=== PATIENT | male | born 1940 | race Caucasian/White ===

== ENCOUNTER 2016-09-03 08:52 | Inpatient (IN) | payer OTHER ==
[2016-08-13 10:00] VITALS: BMI 29.0
--- NOTE | 2016-08-13 10:51 | PAT Medication Instructions ---
Service Date August 13, 2016. Current Home Medication List Acetaminophen Tab (Tylenol), 650 MG PO Q4H PRN for Pain Carvedilol (Coreg), 12.5 MG PO BID Digoxin (Lanoxin), 0.125 MG PO 1800 Glipizide (Glipizide), 5 MG PO BIDM Lactulose (Chronulac), 10 ML PO BID Levothyroxine Sodium (Levothyroxine Sodium), 175 MCG PO QAM Magnesium Oxide (Mag-Ox), 400 MG PO BID Omeprazole (Prilosec), 40 MG PO BID Ondansetron Hcl (Zofran), 4 MG PO BID Ranitidine (Zantac), 150 MG PO HS Rifaximin (Xifaxan), 550 MG PO BID Ropinirole Hydrochloride (Requip), 0.25 MG PO HS PRN for RLS Zolpidem Tartrate (Zolpidem Tartrate), 1 TAB PO HS Medication Instructions For Your Scheduled Surgery - Hold the following medications the morning of surgery: Magnesium Oxide (Mag-Ox), 400 MG PO BID Glipizide (Glipizide), 5 MG PO BIDM - Take the following medications the morning of surgery with a sip of water: Omeprazole (Prilosec), 40 MG PO BID Ondansetron Hcl (Zofran), 4 MG PO BID Levothyroxine Sodium (Levothyroxine Sodium), 175 MCG PO QAM Lactulose (Chronulac), 10 ML PO BID Rifaximin (Xifaxan), 550 MG PO BID Acetaminophen Tab (Tylenol), 650 MG PO Q4H PRN for Pain (if needed) Carvedilol (Coreg), 12.5 MG PO BID - Hold the following medications as scheduled the night before surgery: Ropinirole Hydrochloride (Requip), 0.25 MG PO HS PRN for RLS Zolpidem Tartrate (Zolpidem Tartrate), 1 TAB PO HS Rifaximin (Xifaxan), 550 MG PO BID Ranitidine (Zantac), 150 MG PO HS Omeprazole (Prilosec), 40 MG PO BID Ondansetron Hcl (Zofran), 4 MG PO BID Lactulose (Chronulac), 10 ML PO BID Digoxin (Lanoxin), 0.125 MG PO 1800 Acetaminophen Tab (Tylenol), 650 MG PO Q4H PRN for Pain Carvedilol (Coreg), 12.5 MG PO BID If you have any questions please call us at [phone] (Kasia Ni PA-C) or [phone] or [phone]
[2016-08-13 11:24] LABS: INR 1.2 (0.9-1.1); PARTIAL THROMBOPLASTIN RATIO 1.1; PROTHROMBIN TIME (PATIENT) 12.9 SECONDS (9.0-12.0)
[2016-08-13 11:58] LABS: BASO % 1.4 %; BASO ABS # 0.07 K/uL (0-0.2); COMPLETE YES; EOS % 9.3 %; HEMATOCRIT 40.6 % (42-52); IG% 0.6 %; LYMPH ABS # 0.94 K/uL (1.2-3.4); MEAN CELL VOLUME 89.4 fL (80-100); MEAN CORPUSCULAR HEMOGLOBIN 31.3 pg (25-34); MEAN PLATELET VOLUME 12.2 fL (7.4-10.4); MONO % 6.5 %; NEUT % 63.2 %; PLATELET COUNT 33 K/uL (130-400); PLT ESTIMATE DECREASED; RED BLOOD COUNT 4.54 M/uL (4.7-6.1); WHITE BLOOD COUNT 4.96 K/uL (4.8-10.8)
[2016-08-13 13:23] LABS: BUN/CREATININE RATIO 14.1 (10-20); CALCIUM 8.5 mg/dl (8.5-10.1); CREATININE 0.96 mg/dl (0.60-1.40)
[2016-08-13 13:32] LABS: BETA-HYDROXYBUTYRATE 0.86 mg/dL (0.2-2.81)
[~2016-09-03] VITALS: Ht 165.1 cm; Wt 88.1 kg
[2016-09-03] VITALS (28 sets, daily range): BP systolic 91–141; BP diastolic 52–86; PULSE 59–96; TEMP 36.4–36.5; O2SAT 90–100; BMI 29.0; BMI 31.6
[~2016-09-03 08:52] MED LIST: ACET325T96 PO; CARV12.52 PO; CEFAZOLIN 2000 MG/60 ML D5W IV SCH; DIGO0.122 PO; GLC5 PO; LACT10SO17 PO; LACTATED RINGER'S 1000ML 1,000 ML IV SCH; LEVO175T3 PO; MAGN400T6 PO; ONDA4TAB46 PO; PRLSR20 PO; RIFA550T2 PO; ZNTT/150 PO; ZOLP5TAB6 PO; [UNRECOGNIZED DRUG - CODE] PO
[2016-09-03 09:42] LABS: HEMATOCRIT 42.9 % (42-52); MEAN CELL VOLUME 89.7 fL (80-100); MEAN CORPUSCULAR HEMOGLOBIN 30.3 pg (25-34); RED BLOOD COUNT 4.78 M/uL (4.7-6.1); WHITE BLOOD COUNT 5.17 K/uL (4.8-10.8)
[2016-09-03 09:46] LABS: MEAN CORPUSCULAR HGB CONC 33.8 g/dl (32-36); MEAN PLATELET VOLUME 11.9 fL (7.4-10.4); PLATELET COUNT 62 K/uL (130-400)
[2016-09-03] MEDS ORDERED: PROPOFOL IV EMULSION 10 MG/ML 20 ML VIAL IV ONE (09:55)
[2016-09-03] MEDS ORDERED: NEOSTIGMINE METHYLSULFATE 5 MG/5 ML SYR ONE (09:55)
[2016-09-03] MEDS ORDERED: MIDAZOLAM HCL 1 MG/ML 2ML VIAL ONE (09:55)
[2016-09-03] MEDS ORDERED: ONDANSETRON INJ 2 MG/ML 2 ML VIAL ONE (09:55)
[2016-09-03] MEDS ORDERED: LIDOCAINE HCL 2% 2 ML VIAL (20MG/ML) ONE (09:55)
[2016-09-03] MEDS ORDERED: FENTANYL CITRATE INJ 50 MCG/1 ML 2 ML VIAL ONE ×3 (09:55→13:02)
[2016-09-03] MEDS ORDERED: GLYCOPYRROLATE INJ 0.2 MG/ML VIAL ONE (09:55)
[2016-09-03] MEDS ORDERED: ROCURONIUM BROMIDE 10 MG/ML 5 ML VIAL ONE ×2 (09:55→11:22)
[2016-09-03] MEDS ORDERED: DEXAMETHASONE SOD INJ 4 MG/ML VIAL ONE (09:55)
--- NOTE | 2016-09-03 09:59 | History and Physical ---
History & Physical Date September 03, 2016. 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 requested by oncology for splenectomy. Past Medical/Surgical History Medical Problems: (1) A-fib (2) Anemia (3) Anemia (4) Atrial Fibrillation (5) Bleeding (6) Bleeding from colostomy (7) Bleeding from colostomy (8) Bleeding from colostomy (9) Bleeding ulcer (10) Chest pain (11) Chronic anticoagulation (12) Chronic Liver Dis Nec (13) Congestive Heart Failure Nos (14) Diab Caren Wo Compl, Type Ii Or Unspec Type, Not Uncntrld (15) Diverticulitis (16) GI (gastrointestinal bleed) (17) GI (gastrointestinal bleed) (18) GI bleed (19) Hypertension Nos (20) s/p ligation ileostomy bleed (21) Warfarin-induced coagulopathy Surgical Problems: (1) Auto Implantable Cardiac Defibrillator In Situ (2) Colostomy in place Additional History Hepatic Disease: Yes (cirrhosis. unknown etiology) Endocrine Disorder: Yes (DM) Hypertension: Yes Heart Disease: Yes (Afib;CHF; CAD) Bleeding Tendencies: Yes Allergies Coded Allergies: No Known Allergies (Unverified , 09/03/16) Home Medications Scheduled Carvedilol (Coreg), 12.5 MG PO BID Digoxin (Lanoxin), 0.125 MG PO 1800 Glipizide (Glipizide), 5 MG PO BIDM Lactulose (Chronulac), 10 ML PO BID Levothyroxine Sodium (Levothyroxine Sodium), 175 MCG PO QAM Magnesium Oxide (Mag-Ox), 400 MG PO BID Omeprazole (Prilosec), 40 MG PO BID Ondansetron Hcl (Zofran), 4 MG PO BID Ranitidine (Zantac), 150 MG PO HS Rifaximin (Xifaxan), 550 MG PO BID Zolpidem Tartrate (Zolpidem Tartrate), 1 TAB PO HS Scheduled PRN Acetaminophen Tab (Tylenol), 650 MG PO Q4H PRN for Pain Ropinirole Hydrochloride (Requip), 0.25 MG PO HS PRN for RLS Physical Examination Skin: warm/dry Eyes: normal inspection, EOMI ENT: normal ENT inspection Head: normocephalic, atraumatic Neck: supple, trachea midline Respiratory/Chest: normal breath sounds, no respiratory distress Cardiovascular: no edema, + irregularly irregular Abdomen / GI: non tender, + pertinent finding (+stoma in place. no fluid wave) Extremities: normal inspection Neurologic/Psych: alert, oriented x 3 Diagnosis thrombocytopenia secondary to ITP unresponsive to med tx very difficult scenario. please see office H & P for more detailed hx/exam very high risk candidate but not many options. high risk for bleeding/infection/ dvt/pe/mi/injury to an organ; high probability of needing to convert to open procedure. discussed all these risks again/pt aware/questions answered. will proceed with lap /poss open splenectomy
[2016-09-03] MEDS ORDERED: BUPIVACAINE/EPINEPHRINE 0.5% MPF 1:200,000 30 ML VIAL ONE (10:04)
[2016-09-03] MEDS ORDERED: PHENYLEPHRINE HCL INJ 10 MG/ML VIAL ONE (10:05)
[2016-09-03 12:47] LABS: ISTAT CREATININE 0.6 mg/dl (0.6-1.3); ISTAT HEMOGLOBIN 10.2 g/dl (14.0-18.0); ISTAT IONIZED CALCIUM 1.08 mmol/l (1.12-1.32)
[2016-09-03] MEDS ORDERED: TISSEEL FIBRIN SEALANT 10ML TOP ONE (12:53)
[2016-09-03] MEDS ORDERED: GLUCOSE 10 TABS/TUBE PO PRN (13:30)
[2016-09-03] MEDS ORDERED: ROPINIROLE HCL 0.25 MG TAB PO PRN (13:30)
[2016-09-03] MEDS ORDERED: ONDANSETRON INJ 2 MG/ML 2 ML VIAL IV PRN ×2 (13:30→14:00)
[2016-09-03] MEDS ORDERED: GLUCOSE 40% GEL 15 GM TUBE PO PRN (13:30)
[2016-09-03] MEDS ORDERED: GLUCAGON FOR INJ 1 MG VIAL SQ PRN (13:30)
[2016-09-03] MEDS ORDERED: DEXTROSE 50% 50 ML SYR IV PRN (13:30)
--- NOTE | 2016-09-03 13:31 | [facility] Operative Report ---
Operative Report Operative Date September 03, 2016. 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 Ma Belt Picker Surgeon(s) Alfonso Quintana Estimated Blood Loss 700 ML Findings 1. enlarged spleen 2. cirrhotic liver 3. adhesions. 4. small hiatal hernia Specimens spleen Drains ROMEO into LUQ Anesthesia get Complication(s) None Disposition Surgical ICU I attest to the content of the Intraoperative Record and any orders documented therein. Any exceptions are noted below.
[2016-09-03] MEDS ORDERED: HYDROmorphone INJ 1 MG/ML SYR ONE ×2 (13:59→14:08)
[2016-09-03] MEDS ORDERED: HYDROmorphone INJ 2 MG/ML SYR/VIAL IV PRN (14:00)
[2016-09-03] MEDS ORDERED: EpHEDrine SULFATE INJ 50 MG/ML AMP IV PRN (14:00)
[2016-09-03] MEDS ORDERED: ATROPINE SULFATE 0.1 MG/ML 5ML SYR IV PRN (14:00)
[2016-09-03] MEDS ORDERED: PHENYLEPHRINE 100MCG/ML 5ML SYR IV PRN (14:00)
--- NOTE | 2016-09-03 14:55 | Anesthesiology Progress Note ---
Anesthesia Post Op Note Date & Time September 03, 2016 at 14:55 Vital Signs Pain Intensity: 4 Vital Signs Past 12 Hours Date Time Temp Pulse Resp B/P Pulse Ox O2 Delivery O2 Flow Rate FiO2 09/03/16 14:48 36.4 65 12 132/69 100 Nasal Cannula 2.0 09/03/16 14:25 36.2 73 18 132/70 98 Nasal Cannula 2 09/03/16 14:15 81 18 144/76 98 Nasal Cannula 2 09/03/16 14:05 78 18 155/79 98 Nasal Cannula 2 09/03/16 13:55 79 18 147/79 98 Mask 6 09/03/16 13:45 84 12 148/81 98 Mask 10 NIBP 09/03/16 13:35 88 12 135/87 98 Mask 10 09/03/16 13:27 36.7 81 12 128/94 98 Mask 10 09/03/16 09:50 36.4 59 18 115/71 98 Room Air Notes Mental Status: alert / awake / arousable, participated in evaluation Pt Amnestic to Procedure: Yes Nausea / Vomiting: adequately controlled Pain: adequately controlled Airway Patency, RR, SpO2: stable & adequate BP & HR: stable & adequate Hydration State: stable & adequate Anesthetic Complications: no major complications apparent
[2016-09-03] MEDS: SODIUM CHLORIDE 0.9% 1000ML 1,000 ML IV SCH ×2 (15:05→23:00)
--- NOTE | 2016-09-03 15:53 | OPERATIVE REPORT ---
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 POSTOPERATIVE DIAGNOSES: Same with intra-abdominal adhesions, cirrhotic liver and small hiatal hernia. PROCEDURES: 1. Laparoscopic splenectomy. 2. Enterolysis. SURGEON: Dr. Sumit Ma. PROPELLER LAYOUT WORKER: Alfonso Grimm PA-C. ESTIMATED BLOOD LOSS: Approximately 700 mL. COMPLICATIONS: No immediate. ANESTHESIA: General. The patient tolerated the procedure well. OPERATIVE NOTE: After informed consent was obtained, the patient was taken to the operating suite and placed in the supine position. After successful intubation, a Hooper catheter was placed and the abdomen was sterilely prepped and draped in the usual fashion. We draped off his right midabdominal ileostomy, so that it was not part of the operative field. I began just to the left of the umbilicus, where I made a small incision with an 11 blade scalpel and carried it down through the soft tissue using electrocautery. The anterior rectus fascia was opened using electrocautery and two #0 Vicryl stay sutures were placed. Peritoneum was elevated with hemostats and incised under direct vision using a Metzenbaum scissor. A finger sweep was performed. A 12-mm Landy trocar was placed. The abdomen was insufflated to 18 mmHg. We put the camera in and we were in an open space; however, there was bowel stuck up to the anterior abdominal wall, preventing us from seeing into the upper abdomen. There were some thin adhesions. We were able to see that there appeared to be open space in the left upper quadrant proximal to this. Rather than trying to place trocars, I simply remove this trocar and desufflated the abdomen. I moved up about 2-2.5 inches and redid the same procedure with a cut down 0 Vicryl sutures and then opened the peritoneum. We repositioned the Landy trocar into this incision and reinsufflated the abdomen. By doing that, I was then able to freely see the entire upper abdomen. We did look back down at our first trocar and did not see any sort of damage or bleeding, etc. Once in the upper abdomen, we then placed a left mid abdominal 5-mm trocar, a left upper quadrant 12-mm trocar, and an epigastric 5-mm trocar. The patient was placed in reverse Trendelenburg position and slightly airplaned to the right. His liver was cirrhotic. There really was no ascites to speak of. He did have some venous engorgement, although no true varices identified. The spleen itself was markedly enlarged. We began by using the Harmonic scalpel to take down the short gastric vessels, starting at about the 4th or 5th short gastric and continued upward until we had them out completely taken down and we were then able to roll the stomach medially. Once we did this, we were able to readily identify the splenic artery. We bluntly dissected this out using a [place] dissector as well as a right angle. Once we had completely dissected free, I was then able to use a TYE irvin cartridge linear stapler to transect the splenic artery. There was a second much smaller artery feeding the inferior pole of the spleen that we were able to identify. Similarly, we skeletonized this. We did use some clip appliers on it and then divided it as it was not an angle where we could readily use the stapler for that vessel. Throughout the whole process, there was some times of bleeding, some backbleeding, and some venous tributary bleeding. All in all, we ended up losing approximately 600-700 mL. We continued to suction irrigate. There were several small tributary vessels that we controlled using a large clip warehouse shipping clerk. Eventually, we were able to continuously slowly dissect. We were able to identify the splenic vein. We did grasp it and clip it proximally and distally and then used the TYE to transect the splenic vein as well. Again, because of his thrombocytopenia, he did have some generalized oozing from the splenic bed, some from the capsule, some back bleeding, etc. At no point in time ____ control the bleeding or did he become hypotensive, etc. We then used a Harmonic scalpel to take down some adhesions to the anterior abdominal wall from the omentum and colon. We continued to take down the attachments of the spleen to the inferior portion of the diaphragm as well as posteriorly. We were able to continue to slowly come around taking these attachments down until we had the spleen completely freed up. Once we did this, we thoroughly irrigated the entire splenic bed. There seemed to be adequate hemostasis with no evidence of bleeding. We did use Tisseel glue that we sprayed over all the short gastrics, the splenic artery and vein as well as the entire splenic bed. After this dried, we placed a Justice-Velez drain in the left upper quadrant incision and brought out through one of the port sites incisions. We secured the skin using 2-0 Vicryl silk. Final look around showed no abnormalities. Again, there was adequate hemostasis with no evidence of any bleeding or oozing at the completion of the procedure. We then removed the trocars and desufflated the abdomen. The 2 upper trocar incisions were connected with a 15 blade scalpel and electrocautery used to open these incisions to make an incision large enough to incorporate the large spleen in 1 piece. After we delivered the spleen, we passed it off to pathology. We closed the fascia of this incision using #1 PDS starting either pole and running them and securing them in the midline. The Landy trocars were closed using 0 Vicryl. Wounds were all irrigated and closed using skin eliezer. Xeroform and gauze dressing and tape were placed as a dressing. The patient was awakened, extubated, and transferred to the intensive care unit in stable condition. During the procedure, we did give him 2 units of platelets. We will monitor him closely in the intensive care unit for the next 24 hours. I attest to the content of the Intraoperative Record and any orders documented therein. Any exceptio ns are noted below.
[2016-09-03] MEDS: INSULIN ASPART 100 UNITS/ML 3 ML PEN SC SCH ×2 (16:00→20:45)
[2016-09-03] MEDS: DIGOXIN 0.125 MG TAB PO SCH (18:02)
[2016-09-03] MEDS: RIFAXIMIN TAB 550 MG TAB PO SCH (20:44)
[2016-09-03] MEDS: CARVEDILOL 12.5 MG TAB PO SCH (20:44)
[2016-09-03] MEDS: LACTULOSE SYRUP 10 GM/15 ML BTL 473 ML PO SCH (20:44)
[2016-09-03] MEDS: ZOLPIDEM TARTRATE 5 MG TAB PO SCH (20:47)
--- NOTE | 2016-09-03 20:53 | Critical Care Consultation ---
Critical Care Consultation Date of Consultation: September 03, 2016. Attending Physician: Sumit Ma D.O. 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 It is my understanding that the patient has been treated for idiopathic thrombocytopenia and medical treatments have not been working for him. He is a long history of A. fib and had previously been on Coumadin which was in the last 2 months held due to his thrombocytopenia. This patient has a very complicated past medical history and secondary to that was a extremely high surgical risk. Other than his thrombocytopenia he is also a coronary artery disease patient with prior stenting to his LAD x 2 in 2006, atrial fibrillation, cirrhosis, severe diverticular disease requiring partial colectomy and ileostomy. Patient underwent cardiac evaluation prior to this surgery. An echocardiogram from March 2016 demonstrated a mildly reduced left ventricular systolic function with an estimated ejection fraction of 40-45% ; there were no significant valvular abnormalities. Patient also underwent an exercise treadmill EKG that was negative for ischemia. Patient was cleared by cardiology for surgery with the recommendation the patient remain on his carvedilol and digoxin perioperatively. Today's surgery was elective and was a joint decision between patient and his oncologist. Patient was taken by Dr. Ma for planned splenectomy. Surgery was able to be performed laparoscopic manner without need of opening. It is my understanding that the surgery was without complication. Estimated blood loss was 700 mL and patient did receive 2 units of platelets intraoperatively. ROMEO drain was place prior to closure and spleen was sent to pathology. Upon seeing the patient in the ICU this evening, he is without complaint resting comfortably. He denies lightheadedness or dizziness, fever, chills, shortness of breath, dyspnea, chest pain/pressure, awareness of tachyarrhythmia. He denies nausea, vomiting, abdominal pain, or incisional pain. He denies recent illness. 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 Cardiac cath stent placement: LAD x 2 2006 Tonsillectomy with removal of adenoids Family History Cancer Diabetes mellitus Heart disease Hypertension Lung disease Social History Smoking Status: Former Smoker (quit smoking 4 years ago; 68-vynw-smnq history) Smokeless Tobacco Use: No Alcohol Use: occasionally Drug Use: none Marital Status: Housing Status: lives with significant other Occupation Status: employed Allergies Coded Allergies: No Known Allergies (Unverified , 09/03/16) Home Medications Scheduled Carvedilol (Coreg), 12.5 MG PO BID Digoxin (Lanoxin), 0.125 MG PO 1800 Glipizide (Glipizide), 5 MG PO BIDM Lactulose (Chronulac), 6.67 GM PO BID Levothyroxine Sodium (Levothyroxine Sodium), 175 MCG PO QAM Magnesium Oxide (Mag-Ox), 400 MG PO BID Omeprazole (Prilosec), 40 MG PO BID Ondansetron Hcl (Zofran), 4 MG PO BID Ranitidine (Zantac), 150 MG PO HS Rifaximin (Xifaxan), 550 MG PO BID Zolpidem Tartrate (Zolpidem Tartrate), 1 TAB PO HS Scheduled PRN Acetaminophen Tab (Tylenol), 650 MG PO Q4H PRN for Pain Hydrocodone/Acetaminophen 5MG/325MG ([place] 5MG/325MG), 1-2 TABLET PO Q4H PRN for Pain Ropinirole Hydrochloride (Requip), 0.25 MG PO HS PRN for RLS Current Inpatient Medications Current Inpatient Medications Medications (Trade) Dose Ordered Sig/Kala Route Start Time Stop Time Status Last Admin Dose Admin Sodium Chloride (Nss 1000ml) 1,000 ml @ 125 mls/hr Q8H IV 09/03/16 15:00 10/03/16 14:59 09/03/16 15:05 125 MLS/HR Ondansetron HCl (Zofran Inj) 4 mg Q4H PRN IV 09/03/16 13:30 10/03/16 13:29 Hydromorphone HCl (Dilaudid Inj) 1 mg Q1H PRN IV 09/03/16 13:30 09/17/16 13:29 Insulin Aspart (novoLOG ASPART) SLIDING SCALE If C... ACHS SC 09/03/16 16:00 10/03/16 15:59 09/03/16 20:45 2 UNITS Glucose (Glucose 40% Gel) 15-30 GRAMS 15 GRAMS... UD PRN PO 09/03/16 13:30 10/03/16 13:29 Glucose (Glucose Chew Tab) 4-8 Tablets 4 Tabl... UD PRN PO 09/03/16 13:30 10/03/16 13:29 Dextrose (Dextrose 50% 50ML Syringe) 25-50ML OF 50% DW IV FOR... UD PRN IV 09/03/16 13:30 10/03/16 13:29 Glucagon (Glucagon Inj) 1 mg UD PRN SQ 09/03/16 13:30 10/03/16 13:29 Carvedilol (Coreg Tab) 12.5 mg BID PO 09/03/16 21:00 10/03/16 20:59 09/03/16 20:44 12.5 MG Digoxin (Lanoxin Tab) 0.125 mg 1800 PO 09/03/16 18:00 10/03/16 17:59 09/03/16 18:02 0.125 MG Lactulose (Chronulac Syrup) 6.651549 gm BID PO 09/03/16 21:00 10/03/16 20:59 09/03/16 20:44 6.257955 GM Levothyroxine Sodium (Synthroid Tab) 175 mcg DAILYBB PO 09/04/16 06:00 10/04/16 05:59 Rifaximin (Xifaxan Tab) 550 mg BID PO 09/03/16 21:00 10/03/16 20:59 09/03/16 20:44 550 MG Ropinirole HCl (Requip Tab) 0.25 mg HS PRN PO 09/03/16 13:30 10/03/16 13:29 Zolpidem Tartrate 5 mg 5 mg HS PO 09/03/16 21:00 10/03/16 20:59 Pantoprazole Sodium/Syringe (Protonix Inj/ Syringe) 10 ml @ 5 mls/min DAILY@11 IV 09/04/16 11:00 10/04/16 10:59 Review of Systems 12 systems reviewed and negative other than previously mentioned in the HPI. Physical Exam Date Time Temp Pulse Resp B/P Pulse Ox O2 Delivery O2 Flow Rate FiO2 5/25/17 20:01 73 13 98 126/62 09/03/16 20:00 62 12 99 09/03/16 20:00 Nasal Cannula 2.0 09/03/16 19:01 68 16 100 121/67 09/03/16 19:00 73 16 99 09/03/16 18:02 72 09/03/16 18:01 82 16 96 112/58 09/03/16 18:00 83 14 95 09/03/16 18:00 91 09/03/16 18:00 91 12 112/58 97 Nasal Cannula 2.0 09/03/16 17:01 96 14 91 91/67 09/03/16 17:00 91 09/03/16 17:00 81 15 90 09/03/16 16:11 36.4 74 10 117/67 92 Nasal Cannula 2.0 09/03/16 16:03 65 14 100 141/70 09/03/16 16:00 74 10 117/67 92 Nasal Cannula 2.0 09/03/16 16:00 66 7 95 09/03/16 16:00 100 Nasal Cannula 2.0 09/03/16 16:00 36.4 68 12 115/72 100 Nasal Cannula 2.0 09/03/16 16:00 74 09/03/16 15:11 68 09/03/16 15:01 67 12 97 115/72 09/03/16 15:00 61 10 99 09/03/16 15:00 77 09/03/16 15:00 36.4 77 12 115/72 100 Nasal Cannula 2.0 09/03/16 14:54 36.5 59 10 127/86 97 Nasal Cannula 2.0 09/03/16 14:48 36.4 65 12 132/69 100 Nasal Cannula 2.0 09/03/16 14:25 36.2 73 18 132/70 98 Nasal Cannula 2 09/03/16 14:15 81 18 144/76 98 Nasal Cannula 2 09/03/16 14:05 78 18 155/79 98 Nasal Cannula 2 09/03/16 13:55 79 18 147/79 98 Mask 6 09/03/16 13:45 84 12 148/81 98 Mask 10 NIBP 09/03/16 13:35 88 12 135/87 98 Mask 10 09/03/16 13:27 36.7 81 12 128/94 98 Mask 10 09/03/16 09:50 36.4 59 18 115/71 98 Room Air Vital Signs - as noted Laboratory Data - as noted Physical Exam: General - NAD, sleeping in bed prior to exam Eyes - PERRL, EOMI No icterus, gaze conjugate ENT - Mucosa moist, no lesions or candidiasis, without teeth; dentures not in place Neck - Supple, trachea midline, no masses or lymphadenopathy, no JVD or bruits Lungs - No paradoxical chest wall movement, clear to auscultation bilaterally, no wheezes, rales, or rhonchi Heart - irregularly irregular, normal rate, No murmur, rubs, clicks, or gallops appreciated Abdomen -BS present, ileostomy bag in place on right side of abdomen; multiple surgical dressings in place to upper and left quadrants all clean and dry and intact, no bruits noted, tympanic to percussion, soft, nontender, nondistended, no organomegaly Extremities - No edema, pedal pulses intact Neuro - A & O x 3 (Person, Place & Situation) Known confusion at baseline Strength extremities equal and appropriate bilaterally Reflexes: normal and equal CN:PERRL, EOMI, no facial asymmetry, uvula/tongue midline Laboratory Results Last 24 Hours Test 09/03/16 09:25 09/03/16 09:33 09/03/16 12:27 09/03/16 13:53 White Blood Count 5.17 K/uL Red Blood Count 4.78 M/uL Hemoglobin 14.5 g/dL Hematocrit 42.9 % Mean Corpuscular Volume 89.7 fL Mean Corpuscular Hemoglobin 30.3 pg Mean Corpuscular Hemoglobin Concent 33.8 g/dl RDW Standard Deviation 52.4 fL RDW Coefficient of Variation 15.8 % Platelet Count 62 K/uL Mean Platelet Volume 11.9 fL Bedside Glucose 190 mg/dl 214 mg/dl Bedside Hemoglobin 10.2 g/dl Bedside Hematocrit 30 % Bedside Sodium 141 mEq/L Bedside Potassium 4.1 mEq/L Bedside Chloride 106 mEq/L Bedside Total CO2 22 mEq/l Anion Gap 18.0 mmol/L Bedside Blood Urea Nitrogen 19 mg/dl Bedside Creatinine 0.6 mg/dl Bedside Glucose (other) 206 mg/dl Bedside Ionized Calcium (Flaquito) 1.08 mmol/l Test 09/03/16 15:55 09/03/16 17:09 Bedside Glucose 207 mg/dl Hemoglobin 12.1 g/dL Hematocrit 37.0 % Diagnostic Results No imaging this admission Assessment & Plan (1) Idiopathic thrombocytopenia purpura (2) Post-splenectomy (3) Atrial fibrillation (4) Chronic Liver Dis Nec (5) Congestive Heart Failure Nos (6) Chronic ITP (idiopathic thrombocytopenia) (7) A-fib (8) Diab Caren Wo Compl, Type Ii Or Unspec Type, Not Uncntrld (9) Hypertension Nos (10) Colostomy in place POD # 0 * Laparoscopic splenectomy; received 2 units of platelets; 700 mL estimated blood loss. * Patient received prophylactic preoperative Ancef * ROMEO drain in place: monitor output (120 last shift) * Increased risk for bleeding secondary to thrombocytopenia * Monitor for cardiovascular changes * Monitor CBC * Patient states pain free * Further surgical management per Dr. Ma Cardiovascular: * Continue home cardiac meds per Cardiology recommendation * Coreg 12.5 mg by mouth twice a day * Digoxin 0.125 mg by mouth * Monitor on telemetry * Pt will need systemic anticoagulation once out of the hakeem-operative period Pulmonary: * 2L nasal cannula in place, adequate saturations continue supplemental O2 as needed * Wean to room air as saturations allow * Use of Incentive Spirometry recommended * Monitor on telemetry * At increased risk for DVT/PE secondary to chronic a. fib without anticoagulation Heme: * H&H 12.1/37.0; Plts 62 * Monitor Daily labs closely * DVT Prophylaxis: No Chemical Prophylaxis hakeem-operatively; SCD's in place GI: * Restart home GERD PPI POD #1 * Protonix: 40mg IV * Consider PO once on full diet * Clear Liquid diet in place * Colostomy bag in place, clean, dry, intact without irritation or erythema * hx of cirrhosis * Continue Rifaximin maintenance dose 550Mg PO BID * Continue Home Dose of Lactulose * GI Prophylaxis: Already in place secondary to home PPI use : * Continue maintenance fluid; NSS @ 125 * Monitor UOP * Hooper in place to gravity * 2L positive, Urine still moderately concentrated but improving * Monitor daily BMP Endocrine: * DM2 * SSI in place with Novolog * Accu-Checks per protocol, started insulin infusion for 2 blood sugars greater than 180 * Hypothyroidism * Continue levothyroxine 175 micrograms PO Neuro: * Hx of Restless Leg Syndrome * Continue Requip * Pain well controlled, Pt states 0/10 * Dilaudid available if pain occurs * Post-op confusion improving, monitor neuro changes * Increased Clot risk, off Coumadin for approx 1-2m Access: 2 PIVs and 1 Right Radial Arterial Line in place; No indication currently for central access. CCT: 0 Minutes; Level 3 inpatient Billing; This time is exclusive of all separately billable procedures. Thank you for involving us in the care of this patient. Please refer to Dr. Francisco Banerjee's addendum for further recommendations. Arterial Line Placed 09/03/2016 in OR I have personally evaluated and examined this patient. I agree with assessment and plan of Mary Mantilla PA-C. Medically, located patient, will require systemic anticoagulation secondary to persistent A. fib and recent CVA, however this was contraindicated by persistent thrombocytopenia for which he received splenectomy.
[2016-09-04] VITALS (25 sets, daily range): BP systolic 99–133; BP diastolic 54–83; PULSE 54–106; TEMP 36.4–37.1; O2SAT 91–100; Ht 165.1 cm; Wt 88.1 kg
[2016-09-04] MEDS: LEVOTHYROXINE 175 MCG TAB PO SCH (05:31)
[2016-09-04 05:56] LABS: HEMATOCRIT 35.3 % (42-52); MEAN CELL VOLUME 90.3 fL (80-100); MEAN CORPUSCULAR HEMOGLOBIN 30.2 pg (25-34); MEAN CORPUSCULAR HGB CONC 33.4 g/dl (32-36); RED BLOOD COUNT 3.91 M/uL (4.7-6.1); WHITE BLOOD COUNT 8.72 K/uL (4.8-10.8)
[2016-09-04 05:58] LABS: COMPLETE YES; IG% 0.9 %; LYMPH ABS # 1.05 K/uL (1.2-3.4); MEAN PLATELET VOLUME 11.9 fL (7.4-10.4); MONO % 24.8 %; NEUT % 62.3 %; PLATELET COUNT 85 K/uL (130-400)
[2016-09-04 06:32] LABS: CREATININE 0.79 mg/dl (0.60-1.40); POTASSIUM 3.8 mmol/L (3.5-5.1)
[2016-09-04 06:33] LABS: MAGNESIUM 2.1 mg/dl (1.8-2.4); PHOSPHORUS 3.4 mg/dl (2.5-4.9)
[2016-09-04] MEDS: INSULIN ASPART 100 UNITS/ML 3 ML PEN SC SCH ×4 (06:45→20:57)
[2016-09-04] MEDS: SODIUM CHLORIDE 0.9% 1000ML 1,000 ML IV SCH (07:20)
[2016-09-04] MEDS: LACTULOSE SYRUP 10 GM/15 ML BTL 473 ML PO SCH ×2 (07:38→21:02)
[2016-09-04] MEDS: CARVEDILOL 12.5 MG TAB PO SCH ×2 (07:38→21:02)
[2016-09-04] MEDS: RIFAXIMIN TAB 550 MG TAB PO SCH ×2 (07:38→21:04)
--- NOTE | 2016-09-04 07:48 | Surgery Progress Note ---
Surgery Progress Note Date of Service September 04, 2016. Subjective Post OP Day: 1 + diet (clears), + feeling well, + pain controlled, No complaints, No nausea Objective Vital Signs: Date Time Temp Pulse Resp B/P Pulse Ox O2 Delivery O2 Flow Rate FiO2 09/04/16 06:02 68 10 96 117/64 09/04/16 06:00 67 12 117/64 97 Room Air 132/54 09/04/16 06:00 67 12 97 09/04/16 04:00 100 Nasal Cannula 2.0 09/04/16 04:00 36.4 65 18 127/64 99 Nasal Cannula 2.0 133/59 09/04/16 02:00 58 21 114/57 100 Nasal Cannula 2.0 123/56 09/04/16 00:01 65 17 99 99/59 09/04/16 00:01 36.6 65 17 99/59 99 Nasal Cannula 2.0 112/62 09/04/16 00:01 65 17 99 99/59 09/04/16 00:00 68 12 98 09/04/16 00:00 68 12 98 09/03/16 23:59 99 Nasal Cannula 2.0 09/03/16 23:00 81 15 100 09/03/16 22:31 68 12 97 97/63 09/03/16 22:01 63 15 98 121/58 09/03/16 22:00 65 13 98 09/03/16 21:57 36.4 66 12 108/52 97 Nasal Cannula 2.0 09/03/16 21:31 67 20 96 108/52 09/03/16 21:30 70 18 97 09/03/16 21:01 71 10 97 122/73 09/03/16 21:00 68 12 97 09/03/16 20:30 83 18 90 09/03/16 20:01 73 13 98 126/62 09/03/16 20:00 62 12 99 09/03/16 20:00 Nasal Cannula 2.0 09/03/16 19:01 68 16 100 121/67 09/03/16 19:00 73 16 99 09/03/16 18:02 72 09/03/16 18:01 82 16 96 112/58 09/03/16 18:00 83 14 95 09/03/16 18:00 91 09/03/16 18:00 91 12 112/58 97 Nasal Cannula 2.0 09/03/16 17:01 96 14 91 91/67 09/03/16 17:00 91 09/03/16 17:00 81 15 90 09/03/16 16:11 36.4 74 10 117/67 92 Nasal Cannula 2.0 09/03/16 16:03 65 14 100 141/70 09/03/16 16:00 74 10 117/67 92 Nasal Cannula 2.0 09/03/16 16:00 66 7 95 09/03/16 16:00 100 Nasal Cannula 2.0 09/03/16 16:00 36.4 68 12 115/72 100 Nasal Cannula 2.0 09/03/16 16:00 74 09/03/16 15:11 68 09/03/16 15:01 67 12 97 115/72 09/03/16 15:00 61 10 99 09/03/16 15:00 77 09/03/16 15:00 36.4 77 12 115/72 100 Nasal Cannula 2.0 09/03/16 14:54 36.5 59 10 127/86 97 Nasal Cannula 2.0 09/03/16 14:48 36.4 65 12 132/69 100 Nasal Cannula 2.0 09/03/16 14:25 36.2 73 18 132/70 98 Nasal Cannula 2 09/03/16 14:15 81 18 144/76 98 Nasal Cannula 2 09/03/16 14:05 78 18 155/79 98 Nasal Cannula 2 09/03/16 13:55 79 18 147/79 98 Mask 6 09/03/16 13:45 84 12 148/81 98 Mask 10 NIBP 09/03/16 13:35 88 12 135/87 98 Mask 10 09/03/16 13:27 36.7 81 12 128/94 98 Mask 10 09/03/16 09:50 36.4 59 18 115/71 98 Room Air Physical Exam: ROMEO drainage (120/100), urine output (400/400) Abdomen: non distended, soft Incision(s): dry (dressing) Laboratory Results: Results Past 24 Hours Test 09/03/16 09:25 09/03/16 09:33 09/03/16 12:27 09/03/16 13:53 Range/Units White Blood Count 5.17 4.8-10.8 K/uL Red Blood Count 4.78 4.7-6.1 M/uL Hemoglobin 14.5 14.0-18.0 g/dL Hematocrit 42.9 42-52 % Mean Corpuscular Volume 89.7 80-100 fL Mean Corpuscular Hemoglobin 30.3 25-34 pg Mean Corpuscular Hemoglobin Concent 33.8 32-36 g/dl RDW Standard Deviation 52.4 36.4-46.3 fL RDW Coefficient of Variation 15.8 11.5-14.5 % Platelet Count 62 130-400 K/uL Mean Platelet Volume 11.9 7.4-10.4 fL Bedside Glucose 190 214 70-99 mg/dl Bedside Hemoglobin 10.2 14.0-18.0 g/dl Bedside Hematocrit 30 42-52 % Bedside Sodium 141 135-144 mEq/L Bedside Potassium 4.1 3.3-5.0 mEq/L Bedside Chloride 106 101-112 mEq/L Bedside Total CO2 22 24-31 mEq/l Anion Gap 18.0 16-25 mmol/L Bedside Blood Urea Nitrogen 19 7-18 mg/dl Bedside Creatinine 0.6 0.6-1.3 mg/dl Bedside Glucose (other) 206 70-99 mg/dl Bedside Ionized Calcium (Flaquito) 1.08 1.12-1.32 mmol/l Test 09/03/16 15:55 09/03/16 17:09 09/03/16 20:42 09/04/16 05:28 Range/Units Bedside Glucose 207 195 70-99 mg/dl Hemoglobin 12.1 11.8 14.0-18.0 g/dL Hematocrit 37.0 35.3 42-52 % White Blood Count 8.72 4.8-10.8 K/uL Red Blood Count 3.91 4.7-6.1 M/uL Mean Corpuscular Volume 90.3 80-100 fL Mean Corpuscular Hemoglobin 30.2 25-34 pg Mean Corpuscular Hemoglobin Concent 33.4 32-36 g/dl Platelet Count 85 130-400 K/uL Mean Platelet Volume 11.9 7.4-10.4 fL Neutrophils (%) (Auto) 62.3 % Lymphocytes (%) (Auto) 12.0 % Monocytes (%) (Auto) 24.8 % Eosinophils (%) (Auto) 0.0 % Basophils (%) (Auto) 0.0 % Neutrophils # (Auto) 5.43 1.4-6.5 K/uL Lymphocytes # (Auto) 1.05 1.2-3.4 K/uL Monocytes # (Auto) 2.16 0.11-0.59 K/uL Eosinophils # (Auto) 0.00 0-0.5 K/uL Basophils # (Auto) 0.00 0-0.2 K/uL RDW Standard Deviation 51.7 36.4-46.3 fL RDW Coefficient of Variation 15.6 11.5-14.5 % Immature Granulocyte % (Auto) 0.9 % Immature Granulocyte # (Auto) 0.08 0.00-0.02 K/uL Sodium Level 146 136-145 mmol/L Potassium Level 3.8 3.5-5.1 mmol/L Chloride Level 112 98-107 mmol/L Carbon Dioxide Level 27 21-32 mmol/L Anion Gap 7.0 3-11 mmol/L Blood Urea Nitrogen 24 7-18 mg/dl Creatinine 0.79 0.60-1.40 mg/dl Est Creatinine Clear Calc Drug Dose 81.2 ml/min Estimated GFR () 101.1 Estimated GFR (Non- 87.2 BUN/Creatinine Ratio 30.0 10-20 Random Glucose 152 70-99 mg/dl Calcium Level 7.0 8.5-10.1 mg/dl Phosphorus Level 3.4 2.5-4.9 mg/dl Magnesium Level 2.1 1.8-2.4 mg/dl Test 09/04/16 06:28 Range/Units Bedside Glucose 172 70-99 mg/dl Assessment & Plan s/p lap splenectomy for ITP Plt 85,000 post op anemia, Hgb stable 12.1-->11.8 will advance diet as elton transfer to floor, ambulate DM SSI, BSGs running 150-200's HTN BP stable
--- NOTE | 2016-09-04 08:04 | Anesthesiology Progress Note ---
Anesthesia Post Op Note Date & Time September 04, 2016 at 08:05 Vital Signs Pain Intensity: 2.0 Vital Signs Past 12 Hours Date Time Temp Pulse Resp B/P Pulse Ox O2 Delivery O2 Flow Rate FiO2 09/04/16 06:02 68 10 96 117/64 09/04/16 06:00 67 12 117/64 97 Room Air 132/54 09/04/16 06:00 67 12 97 09/04/16 04:00 100 Nasal Cannula 2.0 09/04/16 04:00 36.4 65 18 127/64 99 Nasal Cannula 2.0 133/59 09/04/16 02:00 58 21 114/57 100 Nasal Cannula 2.0 123/56 09/04/16 00:01 65 17 99 99/59 09/04/16 00:01 36.6 65 17 99/59 99 Nasal Cannula 2.0 112/62 09/04/16 00:01 65 17 99 99/59 09/04/16 00:00 68 12 98 09/04/16 00:00 68 12 98 09/03/16 23:59 99 Nasal Cannula 2.0 09/03/16 23:00 81 15 100 09/03/16 22:31 68 12 97 97/63 09/03/16 22:01 63 15 98 121/58 09/03/16 22:00 65 13 98 09/03/16 21:57 36.4 66 12 108/52 97 Nasal Cannula 2.0 09/03/16 21:31 67 20 96 108/52 09/03/16 21:30 70 18 97 09/03/16 21:01 71 10 97 122/73 09/03/16 21:00 68 12 97 09/03/16 20:30 83 18 90 Notes Mental Status: alert / awake / arousable, participated in evaluation Pt Amnestic to Procedure: Yes Nausea / Vomiting: adequately controlled Pain: adequately controlled Airway Patency, RR, SpO2: stable & adequate BP & HR: stable & adequate Hydration State: stable & adequate Anesthetic Complications: no major complications apparent
[2016-09-04] MEDS ORDERED: HYDR-5688 PO (08:45)
--- NOTE | 2016-09-04 08:47 | Discharge Instructions ---
Discharge Instructions Date of Service September 04, 2016. Admission Reason for Admission: Thrombocytopenia, History Of Itp Discharge Discharge Diagnosis / Problem: splenectomy Discharge Goals Goal(s): Improve disease control Activity Recommendations Activity Limitations: as noted below Lifting Limitations: no more than 10 pounds Shower/Bathe: no limitations Driving or Machine Use: resume 3 days after discharge . Instructions / Follow-Up Instructions / Follow-Up Dr. Ma in 1-2 weeks, call [phone] if you do not already have an appt Current Hospital Diet Patient's current hospital diet: Clear Liquid Diet Discharge Diet Recommended Diet: Diabetes Type 2 Diet Procedures Procedures Performed: Laparoscopic Splenectomy; Lysis of Adhesions Pending Studies Studies pending at discharge: no Medical Emergencies . Who to Call and When: Medical Emergencies: If at any time you feel your situation is an emergency, please call 911 immediately. . Non-Emergent Contact Non-Emergency issues call your: Surgeon Call Non-Emergent contact if: you have a fever, temperature is above 101.5, your pain is not controlled, wound has increased drainage, wound has increased redness, wound has increased pain, you have any medication questions . "Provider Documentation" section prepared by Alfonso Grimm. . VTE Core Measure Inpt VTE Proph given/why not?: SCD's [place] Drug Monitoring Program Search Results: no issues identified
[2016-09-04] MEDS ORDERED: SODIUM CHLOR 0.45% + 20MEQ KCL 1,000 ML IV SCH (09:30)
--- NOTE | 2016-09-04 10:00 | Clinical Documentation Query ---
QUERY 1 OF 2 CLINICAL DOCUMENTATION QUERY Please document responses to the queries in the clinical record. Dr. LUNDY, In your clinical opinion is this patient being managed for: ( ) Chronic systolic CHF ( ) Other explanation of clinical findings (Please Explain) ( ) Unable to determine (Please Define) ( ) Need to Discuss ( ) Not Agree The medical record reflects the following clinical findings, treatment, and risk factors. Clinical Indicators: 76 yo male presenting for a scheduled splenectomy. H/P indicates pt with unspecified CHF. Manager Database Administration note indicates pt had an ECHO Mar 2016 showing mildly reduced left ventricular systolic function with an estimated ejection fraction of 40-45%. Treatment: chronic management with coreg and digoxin Risk Factors: age, A fib, DM, HTN Severity-adjusted DRGs require coding specificity. "Congestive" heart failure is a non-specific diagnosis. Documentation should specify "acute vs. chronic" and "systolic vs. diastolic." Please clarify and document your clinical opinion in the progress notes and discharge summary. Terms such as "probable", "suspected", "likely", "questionable", "possible", or "still to be ruled out" are acceptable. IF IN AGREEMENT, YOU MUST DOCUMENT ABOVE DIAGNOSTIC STATEMENT IN DAILY PROGRESS NOTES AND DISCHARGE SUMMARY. This document is not part of the patient's record. QUERY 2 OF 2 In your clinical opinion is this patient being managed for: ( ) Acute blood loss anemia ( ) Other explanation of clinical findings (Please Explain) ( ) Unable to determine (Please Define) ( ) Need to Discuss ( ) Not Agree The medical record reflects the following clinical findings, treatment, and risk factors. Clinical Indicators: post op progress note indicates pt with post op anemia. Baseline Hgb 14.2/Hct 40.6 which dropped to Hgb 11.8/35.3. Treatment: 2 U platelets in OR, IV fluids, ICU postoperative monitoring, serial CBC's Risk Factors: EBL 700 cc, thrombocytopenia, ITP Please clarify and document your clinical opinion in the progress notes and discharge summary. Terms such as "probable", "suspected", "likely", "questionable", "possible", or "still to be ruled out" are acceptable. IF IN AGREEMENT, YOU MUST DOCUMENT ABOVE DIAGNOSTIC STATEMENT IN DAILY PROGRESS NOTES AND DISCHARGE SUMMARY. This document is not part of the patient's record. Thank You, Leena Greene, RN [phone]
--- NOTE | 2016-09-04 10:16 | Clinical Documentation Query ---
QUERY 1 OF 2 CLINICAL DOCUMENTATION QUERY Please document response to queries in the clinical record. Mr. CAIN, In your clinical opinion is this patient being managed for: ( ) Chronic systolic CHF ( ) Other explanation of clinical findings (Please Explain) ( ) Unable to determine (Please Define) ( ) Need to Discuss ( ) Not Agree The medical record reflects the following clinical findings, treatment, and risk factors. Clinical Indicators: 76 yo male presenting for a scheduled splenectomy. H/P indicates pt with unspecified CHF. Flue Gas Analyst note indicates pt had an ECHO Mar 2016 showing mildly reduced left ventricular systolic function with an estimated ejection fraction of 40-45%. Treatment: chronic management with coreg and digoxin Risk Factors: age, A fib, DM, HTN Severity-adjusted DRGs require coding specificity. "Congestive" heart failure is a non-specific diagnosis. Documentation should specify "acute vs. chronic" and "systolic vs. diastolic." Please clarify and document your clinical opinion in the progress notes and discharge summary. Terms such as "probable", "suspected", "likely", "questionable", "possible", or "still to be ruled out" are acceptable. IF IN AGREEMENT, YOU MUST DOCUMENT ABOVE DIAGNOSTIC STATEMENT IN DAILY PROGRESS NOTES AND DISCHARGE SUMMARY. This document is not part of the patient's record. QUERY 2 OF 2 In your clinical opinion is this patient being managed for: ( ) Acute blood loss anemia ( ) Other explanation of clinical findings (Please Explain) ( ) Unable to determine (Please Define) ( ) Need to Discuss ( ) Not Agree The medical record reflects the following clinical findings, treatment, and risk factors. Clinical Indicators: post op progress note indicates pt with post op anemia. Baseline Hgb 14.2/Hct 40.6 which dropped to Hgb 11.8/35.3. Treatment: 2 U platelets in OR, IV fluids, ICU postoperative monitoring, serial CBC's Risk Factors: EBL 700 cc, thrombocytopenia, ITP Please clarify and document your clinical opinion in the progress notes and discharge summary. Terms such as "probable", "suspected", "likely", "questionable", "possible", or "still to be ruled out" are acceptable. IF IN AGREEMENT, YOU MUST DOCUMENT ABOVE DIAGNOSTIC STATEMENT IN DAILY PROGRESS NOTES AND DISCHARGE SUMMARY. This document is not part of the patient's record. Thank You, Leena Greene RN [phone]
--- NOTE | 2016-09-04 10:21 | Clinical Documentation Query ---
QUERY 1 OF 2 CLINICAL DOCUMENTATION QUERY Please document responses to queries in clinical record. Dr. JAQUEZ, In your clinical opinion is this patient being managed for: ( ) Chronic systolic CHF ( ) Other explanation of clinical findings (Please Explain) ( ) Unable to determine (Please Define) ( ) Need to Discuss ( ) Not Agree this is Dr Pa patient- you will need to ask him- thank you. The medical record reflects the following clinical findings, treatment, and risk factors. Clinical Indicators: 76 yo male presenting for a scheduled splenectomy. H/P indicates pt with unspecified CHF. [employer] note indicates pt had an ECHO Mar 2016 showing mildly reduced left ventricular systolic function with an estimated ejection fraction of 40-45%. Treatment: chronic management with coreg and digoxin Risk Factors: age, A fib, DM, HTN Severity-adjusted DRGs require coding specificity. "Congestive" heart failure is a non-specific diagnosis. Documentation should specify "acute vs. chronic" and "systolic vs. diastolic." Please clarify and document your clinical opinion in the progress notes and discharge summary. Terms such as "probable", "suspected", "likely", "questionable", "possible", or "still to be ruled out" are acceptable. IF IN AGREEMENT, YOU MUST DOCUMENT ABOVE DIAGNOSTIC STATEMENT IN DAILY PROGRESS NOTES AND DISCHARGE SUMMARY. This document is not part of the patient's record. QUERY 2 OF 2 In your clinical opinion is this patient being managed for: ( ) Acute blood loss anemia ( ) Other explanation of clinical findings (Please Explain) ( ) Unable to determine (Please Define) ( ) Need to Discuss ( ) Not Agree The medical record reflects the following clinical findings, treatment, and risk factors. Clinical Indicators: post op progress note indicates pt with post op anemia. Baseline Hgb 14.2/Hct 40.6 which dropped to Hgb 11.8/35.3. Treatment: 2 U platelets in OR, IV fluids, ICU postoperative monitoring, serial CBC's Risk Factors: EBL 700 cc, thrombocytopenia, ITP Please clarify and document your clinical opinion in the progress notes and discharge summary. Terms such as "probable", "suspected", "likely", "questionable", "possible", or "still to be ruled out" are acceptable. IF IN AGREEMENT, YOU MUST DOCUMENT ABOVE DIAGNOSTIC STATEMENT IN DAILY PROGRESS NOTES AND DISCHARGE SUMMARY. This document is not part of the patient's record. Thank You, Leena Greene RN [phone]
[2016-09-04] MEDS ORDERED: POTASSIUM CHLORIDE 20 MEQ TABCR PO ONE (10:45)
[2016-09-04] MEDS ORDERED: PHARMACY GLYCEMIC MGMT CONSULT SCH (10:48)
[2016-09-04] MEDS ORDERED: PANTOprazole INJ 40 MG in SYRINGE 0 ML IV SCH (11:00)
[2016-09-04] MEDS: PANTOprazole SOD 40 MG TAB PO SCH ×2 (11:02→21:02)
[2016-09-04] MEDS ORDERED: ENOXAPARIN 40 MG/0.4 ML SYR SQ ONE (12:00)
--- NOTE | 2016-09-04 13:54 | Pharmacy Progress Note ---
Glycemic Control Intl Consult Date of Service September 04, 2016. Scope Glycemic Pharmacist consulted by Dr Stewart on 09/04/16 for glycemic control and to write orders per [facility] inpatient glycemic control protocol Objective Weight (Kilograms): 88.100 Accuchecks BSG (last 24hrs): Test 09/03/16 13:53 09/03/16 15:55 09/03/16 20:42 09/04/16 05:28 Bedside Glucose 214 mg/dl (70-99) 207 mg/dl (70-99) 195 mg/dl (70-99) Random Glucose 152 mg/dl (70-99) Test 09/04/16 06:28 09/04/16 11:03 Bedside Glucose 172 mg/dl (70-99) 143 mg/dl (70-99) Laboratory Data (last 24hrs) Test 09/04/16 05:28 Anion Gap 7.0 mmol/L BUN/Creatinine Ratio 30.0 Blood Urea Nitrogen 24 mg/dl Creatinine 0.79 mg/dl Potassium Level 3.8 mmol/L Sodium Level 146 mmol/L White Blood Count 8.72 K/uL Red Blood Count 3.91 M/uL Hemoglobin 11.8 g/dL Hematocrit 35.3 % Mean Corpuscular Volume 90.3 fL Mean Corpuscular Hemoglobin 30.2 pg Mean Corpuscular Hemoglobin Concent 33.4 g/dl Platelet Count 85 K/uL Mean Platelet Volume 11.9 fL Neutrophils (%) (Auto) 62.3 % Lymphocytes (%) (Auto) 12.0 % Monocytes (%) (Auto) 24.8 % Eosinophils (%) (Auto) 0.0 % Basophils (%) (Auto) 0.0 % Neutrophils # (Auto) 5.43 K/uL Lymphocytes # (Auto) 1.05 K/uL Monocytes # (Auto) 2.16 K/uL Eosinophils # (Auto) 0.00 K/uL Basophils # (Auto) 0.00 K/uL HbA1c 6.2% 06/06/14 Recent Pertinent Medications Outpatient Anti-diabetic Regimen: * Glipizide 5mg PO BID * A1c = ? % no recent A1c on record The patient is currently receiving: * Basal insulin: Lantus -- units every -- hours * Correctional Insulin: Novolog Correction per scale ACHS Goal Range: Low 90 mg/dL - High 140 mg/dL Correction Factor: 40 mg/dL/unit * Prandial insulin: Per carb ratio of 1 unit per -- grams CHO consumed * Oral Agents: None currently Risk Factors for Insulin Resistance: * Steroids: Dexamethasone 8mg IV x 1 given in OR 09/03 * Infection: n/a * Pressors: n/a * IVF: n/a * Recent Surgery: POD # 1 s/p laparoscopic splenectomy * Diet: Clear Liquids * Mechanical Ventilation: n/a Assessment & Plan ASSESSMENT: 09/04/16 * 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 BSGs are now trending down, in fact last 2 have been less than 180. Effects of dexamethasone on insulin resistance can persist for 24-48 hrs. * I do suspect as his diet advances he may require some insulin to cover the carbs in his meals. Will add a carb ratio to the current Novolog order. * Will wait until tomorrow AM to add basal insulin, BSGs have been trending lower today plus it's difficult to assess basal needs when fasting BSG may have been elevated secondary to dexamethasone administration yesterday. PLAN FOR INPATIENT GLYCEMIC CONTROL: * Continue to hold glipizide * No Lantus today as BSGs at goal w/ no basal insulin on board - reassess tomorrow * Continuing correction factor of 40 mg/dl/unit * Adding carb ratio of 1 unit per 15 grams CHO consumed * Changing goal range to Low 140 mg/dL - High 180 mg/dL for ICU patient * Please note that the plan above was derived based on current level of insulin resistance and hospital stress. These recommendations are appropriate for inpatient admission only. Plan of care upon discharge will need to be reassessed to avoid potential outpatient hypo/hyperglycemia. Thank you.
--- NOTE | 2016-09-04 14:11 | Critical Care Progress Note ---
Critical Care Progress Note Date of Service September 04, 2016. ICU Day ICU Day Number: [address] Banerjee Subjective Doing well currently Notes didn't sleep well but he expected that being in the hospital Mild pain at incision site but is controlled with meds No overnight events Objective Constitutional: Vital signs as above were reviewed. Eyes: Pupils equal, round, and reactive to light. Extraocular muscles are intact. No proptosis. No photophobia. ENT: Mucous membranes are moist. Oropharynx is clear. No sinus tenderness. TMs are clear bilaterally. Cardiovascular: Heart with a regular rate and rhythm. Pulses are palpable and symmetric in all 4 extremities. No pedal edema appreciated. Respiratory: Lungs clear to auscultation bilaterally. No wheezes, rales, or rhonchi appreciated. No accessory muscle use. No retractions. No increased work of breathing. GI: Abdomen soft, nontender, nondistended. Normal active bowel sounds. No abdominal hernias appreciated. No rebound. No guarding. Abdominal incision bandaged with clean dressing: Wound approximated without dehiscence, purulence or bleeding : No CVA tenderness appreciated. Musculoskeletal: No midline cervical or vertebral tenderness. No gross deformities. No bony tenderness. No calf swelling or tenderness. Integumentary: Warm, dry, no rashes appreciated. Neurological: Patient awake, alert, and oriented x 3. Cranial nerves two through 12 grossly intact. Motor 5 out of 5 strength bilateral upper and lower extremities. Alert and oriented x 3, GCS 15 CAM - ICU negative Lymph: No cervical lymphadenopathy appreciated. Current SOFA Score SOFA Score Response (Comments) Value Platelets (x10) < 150 1 Bilirubin (mg/dL) 2.0 - 5.9 2 Elvira Coma Score 15 0 Level of Hypotension No Hypotension 0 Creatinine (mg/dL) < 1.2 0 Total 3 Assessment & Plan (1) S/P splenectomy during current hospitalization (2) Idiopathic thrombocytopenia purpura (3) A-fib (4) Cirrhosis (5) Coronary artery disease (6) GERD (gastroesophageal reflux disease) (7) History of ulcer disease (8) Dyslipidemia (9) Diab Caren Wo Compl, Type Ii Or Unspec Type, Not Uncntrld (10) Obstructive sleep apnea NEUROLOGICAL - CGS 15, CAM-ICU negative - Pain regimen: Dilaudid 1 mg q 1 hr as needed Restless Leg Syndrome - Resume Requip CARDIAC - BP: HR 60, rate controlled Afib - MAP > 70; some labile BP but do not drop below 90/60 - Off Vasopressor or IV fluids Atrial Fibrillation - Resume home dose if Coreg and Digoxin - Patient is s/p splenectomy - Will start with prophylactic anticoagulation If stable over 24-48 hours with advance to therapeutic regimen RESPIRATORY - RR: 12-17 SpO2: 99% on 2L Sleep Apnea - CPAP at nighttime, as patient reported today to nurse he has CPAP GASTROINTESTINAL - Diet: Clear liquid diet, to be managed per primary surgical service - GI Prophylaxis: Protonix 40 mg IV daily - Bowel regimen: Montor for bowel movements and flatus as patient is risk for post-operative ileus and opioid-induced constipation History of Cirrhosis - Continue Rifixamine and Lactulose RENAL//ENDOCRINE - Cr: 0.79 Baseline 0.9-1.0 - Electrolytes: No gross abnormalities K 3.8, goal for chronic Afib 4.0; will give 40 mEq KCl PO - IV Fluids: Discontinue as patient is tolerating oral intake Type 2 Diabetes Mellitus - BS-200 Glycemic Consult for further management Insulin sliding scale HEMATOLOGY/INFECTIOUS DISEASE - Afebrile No leukocytosis - Risk of Spontaneous Bacterial Peritonitis: Continue Rifixamine - Hb/Hct 11.8/35 - DVT Prophylaxis: Start Lovenox 40 mg daily LINES/IV ACCESS - 2 x 20 G in lef forearm and wrist - Right Arterial Catheter CODE STATUS - Full Code DISPOSITION - OT/PT - Stable for transfer to telemetry Resident Physician Supervision Note: Dr. Stewart was resident physician during care of patient. I separately evaluated patient and did history and exam. I discussed the case with the resident and generally agree with the findings and plan. Uncomplicated postop, will start DVT prophylaxis, would consider systemic anticoagulation tomorrow. Stable for downgraded out of ICU Documented By: Francisco Banerjee DO Consults & Procedures Consultants: surgery Procedures: s/p laparoscopic splenectomy on 09/03/2016 Data Medications: Current Inpatient Medications Medications (Trade) Dose Ordered Sig/Kala Route Start Time Stop Time Status Last Admin Dose Admin Ondansetron HCl (Zofran Inj) 4 mg Q4H PRN IV 09/03/16 13:30 10/03/16 13:29 Hydromorphone HCl (Dilaudid Inj) 1 mg Q1H PRN IV 09/03/16 13:30 09/17/16 13:29 Insulin Aspart (novoLOG ASPART) SLIDING SCALE If C... ACHS SC 09/03/16 16:00 10/03/16 15:59 09/04/16 06:45 1 UNITS Glucose (Glucose 40% Gel) 15-30 GRAMS 15 GRAMS... UD PRN PO 09/03/16 13:30 10/03/16 13:29 Glucose (Glucose Chew Tab) 4-8 Tablets 4 Tabl... UD PRN PO 09/03/16 13:30 10/03/16 13:29 Dextrose (Dextrose 50% 50ML Syringe) 25-50ML OF 50% DW IV FOR... UD PRN IV 09/03/16 13:30 10/03/16 13:29 Glucagon (Glucagon Inj) 1 mg UD PRN SQ 09/03/16 13:30 10/03/16 13:29 Carvedilol (Coreg Tab) 12.5 mg BID PO 09/03/16 21:00 10/03/16 20:59 09/04/16 07:38 12.5 MG Digoxin (Lanoxin Tab) 0.125 mg 1800 PO 09/03/16 18:00 10/03/16 17:59 09/03/16 18:02 0.125 MG Lactulose (Chronulac Syrup) 6.172884 gm BID PO 09/03/16 21:00 10/03/16 20:59 09/04/16 07:38 6.792364 GM Levothyroxine Sodium (Synthroid Tab) 175 mcg DAILYBB PO 09/04/16 06:00 10/04/16 05:59 09/04/16 05:31 175 MCG Rifaximin (Xifaxan Tab) 550 mg BID PO 09/03/16 21:00 10/03/16 20:59 09/04/16 07:38 550 MG Ropinirole HCl (Requip Tab) 0.25 mg HS PRN PO 09/03/16 13:30 10/03/16 13:29 Zolpidem Tartrate (Ambien Tab) 5 mg HS PO 09/03/16 21:00 10/03/16 20:59 Enoxaparin Sodium (Lovenox Inj) 40 mg Q24H SQ 09/05/16 12:00 10/05/16 11:59 Miscellaneous Information (Consult Glycemic Management Pharmacy) 1 ea UD N/A 09/04/16 10:48 10/04/16 10:47 Pantoprazole Sodium (Protonix Tab) 40 mg BID PO 09/04/16 11:00 10/04/16 10:59 09/04/16 11:02 40 MG I & O: 24-Hour Column 09/04/16 08:00 Intake Total 4758 ml Output Total 1750 ml Balance 3008 ml Vital Signs: Date Time Temp Pulse Resp B/P Pulse Ox O2 Delivery O2 Flow Rate FiO2 09/04/16 13:00 36.6 58 13 118/55 95 09/04/16 12:00 94 Room Air 09/04/16 12:00 36.8 78 10 107/64 93 09/04/16 12:00 36.6 69 20 109/59 97 09/04/16 11:00 62 09/04/16 10:00 67 09/04/16 10:00 36.6 63 13 119/57 94 Room Air 09/04/16 09:00 36.5 65 10 123/60 97 09/04/16 08:00 36.5 65 10 123/60 97 09/04/16 08:00 94 Room Air 09/04/16 08:00 59 12 117/67 94 Room Air 09/04/16 06:02 68 10 96 117/64 09/04/16 06:00 67 12 117/64 97 Room Air 132/54 09/04/16 06:00 67 12 97 09/04/16 04:00 100 Nasal Cannula 2.0 09/04/16 04:00 36.4 65 18 127/64 99 Nasal Cannula 2.0 133/59 09/04/16 02:00 58 21 114/57 100 Nasal Cannula 2.0 123/56 09/04/16 00:01 65 17 99 99/59 09/04/16 00:01 36.6 65 17 99/59 99 Nasal Cannula 2.0 112/62 09/04/16 00:01 65 17 99 99/59 09/04/16 00:00 68 12 98 09/04/16 00:00 68 12 98 09/03/16 23:59 99 Nasal Cannula 2.0 09/03/16 23:00 81 15 100 09/03/16 22:31 68 12 97 97/63 09/03/16 22:01 63 15 98 121/58 09/03/16 22:00 65 13 98 09/03/16 21:57 36.4 66 12 108/52 97 Nasal Cannula 2.0 09/03/16 21:31 67 20 96 108/52 09/03/16 21:30 70 18 97 09/03/16 21:01 71 10 97 122/73 09/03/16 21:00 68 12 97 09/03/16 20:30 83 18 90 09/03/16 20:01 73 13 98 126/62 09/03/16 20:00 62 12 99 09/03/16 20:00 Nasal Cannula 2.0 09/03/16 19:01 68 16 100 121/67 09/03/16 19:00 73 16 99 09/03/16 18:02 72 09/03/16 18:01 82 16 96 112/58 09/03/16 18:00 83 14 95 09/03/16 18:00 91 09/03/16 18:00 91 12 112/58 97 Nasal Cannula 2.0 09/03/16 17:01 96 14 91 91/67 09/03/16 17:00 91 09/03/16 17:00 81 15 90 09/03/16 16:11 36.4 74 10 117/67 92 Nasal Cannula 2.0 09/03/16 16:03 65 14 100 141/70 09/03/16 16:00 74 10 117/67 92 Nasal Cannula 2.0 09/03/16 16:00 66 7 95 09/03/16 16:00 100 Nasal Cannula 2.0 09/03/16 16:00 36.4 68 12 115/72 100 Nasal Cannula 2.0 09/03/16 16:00 74 09/03/16 15:11 68 09/03/16 15:01 67 12 97 115/72 09/03/16 15:00 61 10 99 09/03/16 15:00 77 09/03/16 15:00 36.4 77 12 115/72 100 Nasal Cannula 2.0 09/03/16 14:54 36.5 59 10 127/86 97 Nasal Cannula 2.0 09/03/16 14:48 36.4 65 12 132/69 100 Nasal Cannula 2.0 09/03/16 14:25 36.2 73 18 132/70 98 Nasal Cannula 2 09/03/16 14:15 81 18 144/76 98 Nasal Cannula 2 09/03/16 14:05 78 18 155/79 98 Nasal Cannula 2 09/03/16 13:55 79 18 147/79 98 Mask 6 09/03/16 13:45 84 12 148/81 98 Mask 10 NIBP Laboratory Results: Last 24 Hours Test 09/03/16 13:53 09/03/16 15:55 09/03/16 17:09 09/03/16 20:42 Bedside Glucose 214 mg/dl 207 mg/dl 195 mg/dl Hemoglobin 12.1 g/dL Hematocrit 37.0 % Test 09/04/16 05:28 09/04/16 06:28 09/04/16 11:03 White Blood Count 8.72 K/uL Red Blood Count 3.91 M/uL Hemoglobin 11.8 g/dL Hematocrit 35.3 % Mean Corpuscular Volume 90.3 fL Mean Corpuscular Hemoglobin 30.2 pg Mean Corpuscular Hemoglobin Concent 33.4 g/dl Platelet Count 85 K/uL Mean Platelet Volume 11.9 fL Neutrophils (%) (Auto) 62.3 % Lymphocytes (%) (Auto) 12.0 % Monocytes (%) (Auto) 24.8 % Eosinophils (%) (Auto) 0.0 % Basophils (%) (Auto) 0.0 % Neutrophils # (Auto) 5.43 K/uL Lymphocytes # (Auto) 1.05 K/uL Monocytes # (Auto) 2.16 K/uL Eosinophils # (Auto) 0.00 K/uL Basophils # (Auto) 0.00 K/uL RDW Standard Deviation 51.7 fL RDW Coefficient of Variation 15.6 % Immature Granulocyte % (Auto) 0.9 % Immature Granulocyte # (Auto) 0.08 K/uL Sodium Level 146 mmol/L Potassium Level 3.8 mmol/L Chloride Level 112 mmol/L Carbon Dioxide Level 27 mmol/L Anion Gap 7.0 mmol/L Blood Urea Nitrogen 24 mg/dl Creatinine 0.79 mg/dl Est Creatinine Clear Calc Drug Dose 81.2 ml/min Estimated GFR () 101.1 Estimated GFR (Non- 87.2 BUN/Creatinine Ratio 30.0 Random Glucose 152 mg/dl Calcium Level 7.0 mg/dl Phosphorus Level 3.4 mg/dl Magnesium Level 2.1 mg/dl Bedside Glucose 172 mg/dl 143 mg/dl
--- NOTE | 2016-09-04 15:58 | Medical Consult ---
Consultation Date of Consultation: September 04, 2016. Attending Physician: Sumit Ma D.O. Reason for Consultation: Medical management post surgery History of Present Illness Patient is a 76 yr male with PMH of CAD S/P stents, DM II, Afib, CHF, hypothyroidism, Sleep apnea, Cirrhosis, S/P pacemaker, ITP and other problems was hospitalized for an elective splenectomy for ITP. H eis a poor historian. Patient is doing well post op. He states his abdominal pain at surgical site is controlled and has been tolerating liquid diet. Denies any chest pain, SOB, palpitations, fever, chills. Currently he is hemodynamically stable and offers no other complaints. He is off Coumadin since one month per patient secondary to thrombocytopenia. He received 2 units of platelets during hospitalization. Past Medical/Surgical History Medical Problems: (1) Elevated troponin Status: Acute (2) Pneumonia Status: Acute (3) Productive cough Status: Acute (4) Thrombocytopenia Status: Acute Family History Cancer Diabetes mellitus Heart disease Hypertension Lung disease Not relevant Social History Smoking Status: Former Smoker (quit smoking 4 years ago; 61-lhqi-cbos history) Smokeless Tobacco Use: No Alcohol Use: occasionally Drug Use: none Marital Status: Housing Status: lives with significant other Occupation Status: employed Allergies Coded Allergies: No Known Allergies (Unverified , 09/03/16) Home Medications Carvedilol (Coreg), 12.5 MG PO BID Digoxin (Lanoxin), 0.125 MG PO 1800 Glipizide (Glipizide), 5 MG PO BIDM Lactulose (Chronulac), 10 ML PO BID Levothyroxine Sodium (Levothyroxine Sodium), 175 MCG PO QAM Magnesium Oxide (Mag-Ox), 400 MG PO BID Omeprazole (Prilosec), 40 MG PO BID Ondansetron Hcl (Zofran), 4 MG PO BID Ranitidine (Zantac), 150 MG PO HS Rifaximin (Xifaxan), 550 MG PO BID Zolpidem Tartrate (Zolpidem Tartrate), 1 TAB PO HS Current Inpatient Medications Current Inpatient Medications Medications (Trade) Dose Ordered Sig/Kala Route Start Time Stop Time Status Last Admin Dose Admin Ondansetron HCl (Zofran Inj) 4 mg Q4H PRN IV 09/03/16 13:30 10/03/16 13:29 Hydromorphone HCl (Dilaudid Inj) 1 mg Q1H PRN IV 09/03/16 13:30 09/17/16 13:29 Insulin Aspart (novoLOG ASPART) SLIDING SCALE If C... ACHS SC 09/03/16 16:00 10/03/16 15:59 09/04/16 06:45 1 UNITS Glucose (Glucose 40% Gel) 15-30 GRAMS 15 GRAMS... UD PRN PO 09/03/16 13:30 10/03/16 13:29 Glucose (Glucose Chew Tab) 4-8 Tablets 4 Tabl... UD PRN PO 09/03/16 13:30 10/03/16 13:29 Dextrose (Dextrose 50% 50ML Syringe) 25-50ML OF 50% DW IV FOR... UD PRN IV 09/03/16 13:30 10/03/16 13:29 Glucagon (Glucagon Inj) 1 mg UD PRN SQ 09/03/16 13:30 10/03/16 13:29 Carvedilol (Coreg Tab) 12.5 mg BID PO 09/03/16 21:00 10/03/16 20:59 09/04/16 07:38 12.5 MG Digoxin (Lanoxin Tab) 0.125 mg 1800 PO 09/03/16 18:00 10/03/16 17:59 09/03/16 18:02 0.125 MG Lactulose (Chronulac Syrup) 6.021035 gm BID PO 09/03/16 21:00 10/03/16 20:59 09/04/16 07:38 6.268316 GM Levothyroxine Sodium (Synthroid Tab) 175 mcg DAILYBB PO 09/04/16 06:00 10/04/16 05:59 09/04/16 05:31 175 MCG Rifaximin (Xifaxan Tab) 550 mg BID PO 09/03/16 21:00 10/03/16 20:59 09/04/16 07:38 550 MG Ropinirole HCl (Requip Tab) 0.25 mg HS PRN PO 09/03/16 13:30 10/03/16 13:29 Zolpidem Tartrate (Ambien Tab) 5 mg HS PO 09/03/16 21:00 10/03/16 20:59 Enoxaparin Sodium (Lovenox Inj) 40 mg Q24H SQ 09/05/16 12:00 10/05/16 11:59 Miscellaneous Information (Consult Glycemic Management Pharmacy) 1 ea UD N/A 09/04/16 10:48 10/04/16 10:47 Pantoprazole Sodium (Protonix Tab) 40 mg BID PO 09/04/16 11:00 10/04/16 10:59 09/04/16 11:02 40 MG Miscellaneous Information (Pending Order) 1 ea TODAY@2100 ONCE N/A 09/04/16 21:00 09/04/16 21:01 Review of Systems See HPI for pertinent positives & negatives. A total of 10 systems reviewed and were otherwise negative. Physical Exam Date Time Temp Pulse Resp B/P Pulse Ox O2 Delivery O2 Flow Rate FiO2 09/04/16 15:29 36.6 66 16 120/83 95 Room Air 09/04/16 14:45 36.6 106 12 91 2.0 09/04/16 14:01 106 12 91 09/04/16 14:01 36.6 78 10 109/60 95 Room Air 2.0 09/04/16 13:45 54 10 95 09/04/16 13:30 57 16 92 09/04/16 13:15 57 12 94 09/04/16 13:01 58 13 93 109/60 09/04/16 13:00 36.6 58 13 118/55 95 09/04/16 13:00 61 14 95 09/04/16 12:00 94 Room Air 09/04/16 12:00 36.8 78 10 107/64 93 09/04/16 12:00 36.6 69 20 109/59 97 09/04/16 11:00 62 09/04/16 10:00 67 09/04/16 10:00 36.6 63 13 119/57 94 Room Air 09/04/16 09:00 36.5 65 10 123/60 97 09/04/16 08:00 36.5 65 10 123/60 97 09/04/16 08:00 94 Room Air 09/04/16 08:00 59 12 117/67 94 Room Air 09/04/16 06:02 68 10 96 117/64 09/04/16 06:00 67 12 117/64 97 Room Air 132/54 09/04/16 06:00 67 12 97 09/04/16 04:00 100 Nasal Cannula 2.0 09/04/16 04:00 36.4 65 18 127/64 99 Nasal Cannula 2.0 133/59 09/04/16 02:00 58 21 114/57 100 Nasal Cannula 2.0 123/56 09/04/16 00:01 65 17 99 99/59 09/04/16 00:01 36.6 65 17 99/59 99 Nasal Cannula 2.0 112/62 09/04/16 00:01 65 17 99 99/59 09/04/16 00:00 68 12 98 09/04/16 00:00 68 12 98 09/03/16 23:59 99 Nasal Cannula 2.0 09/03/16 23:00 81 15 100 09/03/16 22:31 68 12 97 97/63 09/03/16 22:01 63 15 98 121/58 09/03/16 22:00 65 13 98 09/03/16 21:57 36.4 66 12 108/52 97 Nasal Cannula 2.0 09/03/16 21:31 67 20 96 108/52 09/03/16 21:30 70 18 97 09/03/16 21:01 71 10 97 122/73 09/03/16 21:00 68 12 97 09/03/16 20:30 83 18 90 09/03/16 20:01 73 13 98 126/62 09/03/16 20:00 62 12 99 09/03/16 20:00 Nasal Cannula 2.0 09/03/16 19:01 68 16 100 121/67 09/03/16 19:00 73 16 99 09/03/16 18:02 72 09/03/16 18:01 82 16 96 112/58 09/03/16 18:00 83 14 95 09/03/16 18:00 91 09/03/16 18:00 91 12 112/58 97 Nasal Cannula 2.0 09/03/16 17:01 96 14 91 91/67 09/03/16 17:00 91 09/03/16 17:00 81 15 90 09/03/16 16:11 36.4 74 10 117/67 92 Nasal Cannula 2.0 09/03/16 16:03 65 14 100 141/70 5/25/17 16:00 74 10 117/67 92 Nasal Cannula 2.0 09/03/16 16:00 66 7 95 09/03/16 16:00 100 Nasal Cannula 2.0 09/03/16 16:00 36.4 68 12 115/72 100 Nasal Cannula 2.0 09/03/16 16:00 74 General Appearance: WD/WN, no apparent distress, + pertinent finding (Slow to respond) Head: normocephalic, atraumatic Eyes: normal inspection, EOMI ENT: normal ENT inspection Neck: supple, trachea midline Respiratory/Chest: chest non-tender, lungs clear, normal breath sounds, no accessory muscle use Cardiovascular: no edema, no murmur, + irregularly irregular Abdomen/GI: soft, + pertinent finding (Surgical site in bandage, +colostomy, BS heard) Back: normal inspection Extremities/Musculoskelatal: normal inspection, no pedal edema Neurologic/Psych: director data architecture II-XII nml as tested, oriented x 3, + pertinent finding ( Grossly no focal deficits) Skin: normal color, warm/dry Laboratory Results Last 24 Hours Test 09/03/16 15:55 09/03/16 17:09 09/03/16 20:42 09/04/16 05:28 Bedside Glucose 207 mg/dl 195 mg/dl Hemoglobin 12.1 g/dL 11.8 g/dL Hematocrit 37.0 % 35.3 % White Blood Count 8.72 K/uL Red Blood Count 3.91 M/uL Mean Corpuscular Volume 90.3 fL Mean Corpuscular Hemoglobin 30.2 pg Mean Corpuscular Hemoglobin Concent 33.4 g/dl Platelet Count 85 K/uL Mean Platelet Volume 11.9 fL Neutrophils (%) (Auto) 62.3 % Lymphocytes (%) (Auto) 12.0 % Monocytes (%) (Auto) 24.8 % Eosinophils (%) (Auto) 0.0 % Basophils (%) (Auto) 0.0 % Neutrophils # (Auto) 5.43 K/uL Lymphocytes # (Auto) 1.05 K/uL Monocytes # (Auto) 2.16 K/uL Eosinophils # (Auto) 0.00 K/uL Basophils # (Auto) 0.00 K/uL RDW Standard Deviation 51.7 fL RDW Coefficient of Variation 15.6 % Immature Granulocyte % (Auto) 0.9 % Immature Granulocyte # (Auto) 0.08 K/uL Sodium Level 146 mmol/L Potassium Level 3.8 mmol/L Chloride Level 112 mmol/L Carbon Dioxide Level 27 mmol/L Anion Gap 7.0 mmol/L Blood Urea Nitrogen 24 mg/dl Creatinine 0.79 mg/dl Est Creatinine Clear Calc Drug Dose 81.2 ml/min Estimated GFR () 101.1 Estimated GFR (Non- 87.2 BUN/Creatinine Ratio 30.0 Random Glucose 152 mg/dl Calcium Level 7.0 mg/dl Phosphorus Level 3.4 mg/dl Magnesium Level 2.1 mg/dl Test 09/04/16 06:28 09/04/16 11:03 Bedside Glucose 172 mg/dl 143 mg/dl Assessment & Plan ITP: S/P Splenectomy POD #1 Monitor Platelets S/P 2 units Platelets Post operative anemia Monitor Hb Transfuse PRBCs PRN Advance diet as tolerated Pain control Surgery on board DM II: hold oral diabetic meds Check A1c Continue ISS, Accu checks Pharmacy Glycemic control consult Cirrhosis: Continue Rifaximin and Lactulose Restless Leg Syndrome Continue Requip Sleep Apnea: CPAP QHS Hypothyroidism: Continue Levothyroxine Atrial Fibrillation Rate controlled Continue Coreg, Digoxin Check Digoxin levels Not on chronic anticoagulation: ITP, h/o GI bleed GI Px: continue PPI DVT Px: Lovenox 40 mg daily Monitor platelets CODE STATUS Full Code DISPOSITION Per Primary team
[2016-09-04] MEDS: DIGOXIN 0.125 MG TAB PO SCH (17:45)
[2016-09-04] MEDS: HYDROmorphone INJ 1 MG/ML SYR IV PRN (18:33)
[2016-09-04] MEDS: ZOLPIDEM TARTRATE 5 MG TAB PO SCH (21:01)
[2016-09-05] VITALS (7 sets, daily range): BP systolic 114–151; BP diastolic 64–84; PULSE 75–96; TEMP 36.6–37; O2SAT 91–97
--- NOTE | 2016-09-05 05:59 | Surgery Progress Note ---
Surgery Progress Note Date of Service September 05, 2016. Subjective no acute chgs- tolerating diet still has hutton- not oob much Objective Vital Signs: Date Time Temp Pulse Resp B/P Pulse Ox O2 Delivery O2 Flow Rate FiO2 09/05/16 04:00 36.7 77 14 127/74 97 Room Air 09/05/16 04:00 Room Air BiPAP CPAP 09/05/16 00:00 91 CPAP 2.0 21 09/04/16 23:51 37.1 63 19 127/66 96 CPAP 09/04/16 23:30 70 123/75 09/04/16 22:40 74 93 21 09/04/16 20:00 94 Room Air 09/04/16 19:31 37.1 63 18 111/62 94 Room Air 09/04/16 17:45 80 09/04/16 16:00 95 Room Air 09/04/16 15:29 36.6 66 16 120/83 95 Room Air 09/04/16 14:45 36.6 106 12 91 2.0 09/04/16 14:01 106 12 91 09/04/16 14:01 36.6 78 10 109/60 95 Room Air 2.0 09/04/16 13:45 54 10 95 09/04/16 13:30 57 16 92 09/04/16 13:15 57 12 94 09/04/16 13:01 58 13 93 109/60 09/04/16 13:00 36.6 58 13 118/55 95 09/04/16 13:00 61 14 95 09/04/16 12:00 94 Room Air 09/04/16 12:00 36.8 78 10 107/64 93 09/04/16 12:00 36.6 69 20 109/59 97 09/04/16 11:00 62 09/04/16 10:00 67 09/04/16 10:00 36.6 63 13 119/57 94 Room Air 09/04/16 09:00 36.5 65 10 123/60 97 09/04/16 08:00 36.5 65 10 123/60 97 09/04/16 08:00 94 Room Air 09/04/16 08:00 59 12 117/67 94 Room Air 09/04/16 06:02 68 10 96 117/64 09/04/16 06:00 67 12 117/64 97 Room Air 132/54 09/04/16 06:00 67 12 97 General Appearance: no apparent distress Respiratory/Chest: no respiratory distress Abdomen: soft Incision(s): intact, drainage (serous drainage) Laboratory Results: Results Past 24 Hours Test 09/04/16 06:28 09/04/16 11:03 09/04/16 16:23 09/04/16 20:03 Range/Units Bedside Glucose 172 143 130 128 70-99 mg/dl Test 09/05/16 04:44 Range/Units Assessment & Plan 09/05/16- doing well- to regular floor. d/c hutton, leave drain. advance diet/ activity. probable d/c tomorrow
[2016-09-05] MEDS: LEVOTHYROXINE 175 MCG TAB PO SCH (06:02)
[2016-09-05 06:48] LABS: HEMATOCRIT 39.5 % (42-52); MEAN CELL VOLUME 90.6 fL (80-100); MEAN CORPUSCULAR HEMOGLOBIN 30.3 pg (25-34); MEAN CORPUSCULAR HGB CONC 33.4 g/dl (32-36); MEAN PLATELET VOLUME 12.7 fL (7.4-10.4); PLATELET COUNT 55 K/uL (130-400); RED BLOOD COUNT 4.36 M/uL (4.7-6.1); WHITE BLOOD COUNT 11.31 K/uL (4.8-10.8)
[2016-09-05 06:57] LABS: BUN/CREATININE RATIO 29.4 (10-20); CALCIUM 7.3 mg/dl (8.5-10.1); CREATININE 0.74 mg/dl (0.60-1.40); POTASSIUM 3.6 mmol/L (3.5-5.1)
[2016-09-05 07:06] LABS: BASO % 0.1 %; BASO ABS # 0.01 K/uL (0-0.2); COMPLETE YES; EOS % 1.5 %; IG% 0.4 %; LYMPH % 24.5 %; LYMPH ABS # 2.77 K/uL (1.2-3.4); MONO % 24.8 %; NEUT % 48.7 %
[2016-09-05 07:18] LABS: MAGNESIUM 2.2 mg/dl (1.8-2.4); PHOSPHORUS 2.5 mg/dl (2.5-4.9)
[2016-09-05] MEDS: INSULIN ASPART 100 UNITS/ML 3 ML PEN SC SCH ×4 (08:04→21:23)
--- NOTE | 2016-09-05 08:05 | Progress Note ---
Internal Med Progress Note Date of Service: September 05, 2016. Provider Documentation: SUBJECTIVE: Seen and examined at bedside. States having soreness at surgical site. Denies any chest pain, SOB, palpitations, dizziness. Tolerating diet Offers no other complaints. OBJECTIVE: Vital Signs-as noted below General Appearance: WD/WN, no apparent distress Head: normocephalic, atraumatic Eyes: normal inspection, EOMI ENT: normal ENT inspection Neck: supple, trachea midline Respiratory/Chest: chest non-tender, lungs clear, normal breath sounds, no accessory muscle use Cardiovascular: no edema, no murmur, + irregularly irregular Abdomen/GI: soft, Surgical site in bandage, +colostomy, BS heard Back: normal inspection Extremities/Musculoskelatal: normal inspection, no pedal edema Neurologic/Psych: blueprint tracer II-XII nml as tested, oriented x 3, Grossly no focal deficits Skin: normal color, warm/dry Lab data as noted below. ASSESSMENT & PLAN: ITP: S/P Splenectomy POD #2 Monitor Platelets S/P 2 units Platelets Post operative anemia Monitor Hb:13.2 Advance diet as tolerated Pain control Surgery on board Thrombocytopenia: Monitor Platelets Consult hematology/oncology DM II: hold oral diabetic meds Check A1c:pending Continue ISS, Accu checks Pharmacy Glycemic control consult Cirrhosis: Continue Rifaximin and Lactulose Restless Leg Syndrome Continue Requip Sleep Apnea: CPAP QHS Hypothyroidism: Continue Levothyroxine Atrial Fibrillation Rate controlled Continue Coreg, Digoxin Not on chronic anticoagulation: ITP, h/o GI bleed GI Px: continue PPI DVT Px: SCDs secondary to thrombocytopenia CODE STATUS Full Code DISPOSITION Per Primary team Vital Signs: Date Time Temp Pulse Resp B/P Pulse Ox O2 Delivery O2 Flow Rate FiO2 09/05/16 08:00 37.0 86 114/64 93 Room Air 09/05/16 04:00 36.7 77 14 127/74 97 Room Air 09/05/16 04:00 Room Air BiPAP CPAP 09/05/16 00:00 91 CPAP 2.0 21 09/04/16 23:51 37.1 63 19 127/66 96 CPAP 09/04/16 23:30 70 123/75 09/04/16 22:40 74 93 21 09/04/16 20:00 94 Room Air 09/04/16 19:31 37.1 63 18 111/62 94 Room Air 09/04/16 17:45 80 09/04/16 16:00 95 Room Air 09/04/16 15:29 36.6 66 16 120/83 95 Room Air 09/04/16 14:45 36.6 106 12 91 2.0 09/04/16 14:01 106 12 91 09/04/16 14:01 36.6 78 10 109/60 95 Room Air 2.0 09/04/16 13:45 54 10 95 09/04/16 13:30 57 16 92 09/04/16 13:15 57 12 94 09/04/16 13:01 58 13 93 109/60 09/04/16 13:00 36.6 58 13 118/55 95 09/04/16 13:00 61 14 95 09/04/16 12:00 94 Room Air 09/04/16 12:00 36.8 78 10 107/64 93 09/04/16 12:00 36.6 69 20 109/59 97 09/04/16 11:00 62 09/04/16 10:00 67 09/04/16 10:00 36.6 63 13 119/57 94 Room Air 09/04/16 09:00 36.5 65 10 123/60 97 Lab Results: Results Past 24 Hours Test 09/04/16 11:03 09/04/16 16:23 09/04/16 20:03 09/05/16 06:07 Range/Units Bedside Glucose 143 130 128 70-99 mg/dl White Blood Count 11.31 4.8-10.8 K/uL Red Blood Count 4.36 4.7-6.1 M/uL Hemoglobin 13.2 14.0-18.0 g/dL Hematocrit 39.5 42-52 % Mean Corpuscular Volume 90.6 80-100 fL Mean Corpuscular Hemoglobin 30.3 25-34 pg Mean Corpuscular Hemoglobin Concent 33.4 32-36 g/dl Platelet Count 55 130-400 K/uL Mean Platelet Volume 12.7 7.4-10.4 fL Neutrophils (%) (Auto) 48.7 % Lymphocytes (%) (Auto) 24.5 % Monocytes (%) (Auto) 24.8 % Eosinophils (%) (Auto) 1.5 % Basophils (%) (Auto) 0.1 % Neutrophils # (Auto) 5.50 1.4-6.5 K/uL Lymphocytes # (Auto) 2.77 1.2-3.4 K/uL Monocytes # (Auto) 2.81 0.11-0.59 K/uL Eosinophils # (Auto) 0.17 0-0.5 K/uL Basophils # (Auto) 0.01 0-0.2 K/uL RDW Standard Deviation 50.4 36.4-46.3 fL RDW Coefficient of Variation 15.1 11.5-14.5 % Immature Granulocyte % (Auto) 0.4 % Immature Granulocyte # (Auto) 0.05 0.00-0.02 K/uL Sodium Level 142 136-145 mmol/L Potassium Level 3.6 3.5-5.1 mmol/L Chloride Level 107 98-107 mmol/L Carbon Dioxide Level 29 21-32 mmol/L Anion Gap 6.0 3-11 mmol/L Blood Urea Nitrogen 22 7-18 mg/dl Creatinine 0.74 0.60-1.40 mg/dl Est Creatinine Clear Calc Drug Dose 86.7 ml/min Estimated GFR () 103.8 Estimated GFR (Non- 89.6 BUN/Creatinine Ratio 29.4 10-20 Random Glucose 99 70-99 mg/dl Calcium Level 7.3 8.5-10.1 mg/dl Phosphorus Level 2.5 2.5-4.9 mg/dl Magnesium Level 2.2 1.8-2.4 mg/dl Digoxin Level 0.4 0.8-2.0 ng/ml Test 09/05/16 06:34 Range/Units Bedside Glucose 100 70-99 mg/dl
[2016-09-05] MEDS: HYDROmorphone INJ 1 MG/ML SYR IV PRN (08:14)
[2016-09-05] MEDS: PANTOprazole SOD 40 MG TAB PO SCH ×2 (08:15→21:24)
[2016-09-05] MEDS: LACTULOSE SYRUP 10 GM/15 ML BTL 473 ML PO SCH ×2 (08:15→21:23)
[2016-09-05] MEDS ORDERED: PANTOprazole SOD 40 MG TAB PO SCH (09:00)
[2016-09-05] MEDS: RIFAXIMIN TAB 550 MG TAB PO SCH ×2 (09:21→21:24)
[2016-09-05] MEDS: CARVEDILOL 12.5 MG TAB PO SCH ×2 (09:21→21:23)
[2016-09-05 09:26] LABS: ESTIMATED AVERAGE GLUCOSE 151 mg/dl; HA1C FLAG Normal (Normal)
--- NOTE | 2016-09-05 11:31 | Oncology Consultation ---
Oncology/Heme Consultation Date of Consultation: September 05, 2016. Attending Physician: Sumit Ma D.O. Reason for Consultation: Status post splenectomy for ITP History of Present Illness Mr. Bryant is a 76-year-old gentleman with a history of thrombocytopenia. Thrombocytopenia appeared to respond to pulse high-dose Decadron. He has a history as CHF then atrial fibrillation. There has been consideration of using Coumadin because of the atrial fibrillation but his platelet numbers tend to be below 50,000. A bone marrow biopsy was really unremarkable. Attempts to increase his platelet number with Rituxan were unsuccessful and again the response to Decadron was very short-lived. 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 He sees be doing well postoperatively. His been no excessive bleeding. His platelet count today is 55,000 Past Medical/Surgical History Medical Problems: (1) Elevated troponin Status: Acute (2) Pneumonia Status: Acute (3) Productive cough Status: Acute (4) Thrombocytopenia Status: Acute Family History Cancer Diabetes mellitus Heart disease Hypertension Lung disease Social History Smoking Status: Former Smoker (quit smoking 4 years ago; 55-hczb-pwyv history) Smokeless Tobacco Use: No Alcohol Use: occasionally Drug Use: none Marital Status: Housing Status: lives with significant other Occupation Status: employed Allergies Coded Allergies: No Known Allergies (Unverified , 09/03/16) Home Medications Scheduled Carvedilol (Coreg), 12.5 MG PO BID Digoxin (Lanoxin), 0.125 MG PO 1800 Glipizide (Glipizide), 5 MG PO BIDM Lactulose (Chronulac), 6.67 GM PO BID Levothyroxine Sodium (Levothyroxine Sodium), 175 MCG PO QAM Magnesium Oxide (Mag-Ox), 400 MG PO BID Omeprazole (Prilosec), 40 MG PO BID Ondansetron Hcl (Zofran), 4 MG PO BID Ranitidine (Zantac), 150 MG PO HS Rifaximin (Xifaxan), 550 MG PO BID Zolpidem Tartrate (Zolpidem Tartrate), 1 TAB PO HS Scheduled PRN Acetaminophen Tab (Tylenol), 650 MG PO Q4H PRN for Pain Hydrocodone/Acetaminophen 5MG/325MG ([place] 5MG/325MG), 1-2 TABLET PO Q4H PRN for Pain Ropinirole Hydrochloride (Requip), 0.25 MG PO HS PRN for RLS Current Inpatient Medications Current Inpatient Medications Medications (Trade) Dose Ordered Sig/Kala Route Start Time Stop Time Status Last Admin Dose Admin Ondansetron HCl (Zofran Inj) 4 mg Q4H PRN IV 09/03/16 13:30 10/03/16 13:29 Hydromorphone HCl (Dilaudid Inj) 1 mg Q1H PRN IV 09/03/16 13:30 09/17/16 13:29 09/05/16 08:14 1 MG Insulin Aspart (novoLOG ASPART) SLIDING SCALE If C... ACHS SC 09/03/16 16:00 10/03/16 15:59 09/05/16 08:04 3 UNITS Glucose (Glucose 40% Gel) 15-30 GRAMS 15 GRAMS... UD PRN PO 09/03/16 13:30 10/03/16 13:29 Glucose (Glucose Chew Tab) 4-8 Tablets 4 Tabl... UD PRN PO 09/03/16 13:30 10/03/16 13:29 Dextrose (Dextrose 50% 50ML Syringe) 25-50ML OF 50% DW IV FOR... UD PRN IV 09/03/16 13:30 10/03/16 13:29 Glucagon (Glucagon Inj) 1 mg UD PRN SQ 09/03/16 13:30 10/03/16 13:29 Carvedilol (Coreg Tab) 12.5 mg BID PO 09/03/16 21:00 10/03/16 20:59 09/05/16 09:21 12.5 MG Digoxin (Lanoxin Tab) 0.125 mg 1800 PO 09/03/16 18:00 10/03/16 17:59 09/04/16 17:45 0.125 MG Lactulose (Chronulac Syrup) 6.977305 gm BID PO 09/03/16 21:00 10/03/16 20:59 09/05/16 08:15 6.274796 GM Levothyroxine Sodium (Synthroid Tab) 175 mcg DAILYBB PO 09/04/16 06:00 10/04/16 05:59 09/05/16 06:02 175 MCG Rifaximin (Xifaxan Tab) 550 mg BID PO 09/03/16 21:00 10/03/16 20:59 09/05/16 09:21 550 MG Ropinirole HCl (Requip Tab) 0.25 mg HS PRN PO 09/03/16 13:30 10/03/16 13:29 Zolpidem Tartrate (Ambien Tab) 5 mg HS PO 09/03/16 21:00 10/03/16 20:59 09/04/16 21:01 5 MG Miscellaneous Information (Consult Glycemic Management Pharmacy) 1 ea UD N/A 09/04/16 10:48 10/04/16 10:47 Pantoprazole Sodium (Protonix Tab) 40 mg BID PO 09/04/16 11:00 10/04/16 10:59 09/05/16 08:15 40 MG Review of Systems Constitutional: Negative for weight loss, night sweats, or fever Eyes: Negative for event change of vision ENT: Negative for epistaxis, nasal discharge, sore throat, or deafness Cardiovascular: Negative for chest pain, palpitations, dizziness, diaphoresis Respiratory: Negative for new shortness of breath,hemoptysis, or purulent cough Gastrointestinal: Negative for diarrhea, hematemesis, melena, nausea, vomiting , or dyspepsia Integumentary (skin): Negative for rash or jaundice discoloration Genitourinary: Negative for urinary frequency, hematuria, or dysuria Neurological: Negative for weakness, seizure activity, headache, or dizziness Lymphatic/Hematologic: Negative for petechiae, bleeding or new adenopathy Musculoskeletal: Negative for new joint or back pain Allergic/Immunologic: Negative for unusual rash or pruritis. Physical Exam Date Time Temp Pulse Resp B/P Pulse Ox O2 Delivery O2 Flow Rate FiO2 09/05/16 09:04 36.6 78 15 151/84 94 Room Air 09/05/16 09:00 94 Room Air 09/05/16 08:25 37.0 86 14 93 2.0 09/05/16 08:00 37.0 86 114/64 93 Room Air 09/05/16 04:00 36.7 77 14 127/74 97 Room Air 09/05/16 04:00 Room Air BiPAP CPAP 09/05/16 00:00 91 CPAP 2.0 21 09/04/16 23:51 37.1 63 19 127/66 96 CPAP 09/04/16 23:30 70 123/75 09/04/16 22:40 74 93 21 09/04/16 20:00 94 Room Air 09/04/16 19:31 37.1 63 18 111/62 94 Room Air 09/04/16 17:45 80 09/04/16 16:00 95 Room Air 09/04/16 15:29 36.6 66 16 120/83 95 Room Air 09/04/16 14:45 36.6 106 12 91 2.0 09/04/16 14:01 106 12 91 09/04/16 14:01 36.6 78 10 109/60 95 Room Air 2.0 09/04/16 13:45 54 10 95 09/04/16 13:30 57 16 92 09/04/16 13:15 57 12 94 09/04/16 13:01 58 13 93 109/60 09/04/16 13:00 36.6 58 13 118/55 95 09/04/16 13:00 61 14 95 09/04/16 12:00 94 Room Air 09/04/16 12:00 36.8 78 10 107/64 93 09/04/16 12:00 36.6 69 20 109/59 97 Alert pleasant gentleman Constitutional: vitals are stable. Eyes: Eyes are SHARIF EOMI without conjuctival erythema or icterus. ENT: External examination was negative for masses. Neck: Negative for masses or palpable thyromegaly Respiratory: Lung sounds were generally clear bilaterally Cardiovascular: Heart was RRR without significant murmur, gallops aoe rubs Gastrointestinal: No palpable hepatic or splenomegaly. The abdomen was soft with normal bowel sounds. The abdomen is currently bandaged at the site of surgery. Patient has a colostomy in place right lower quadrant that was there as a result of surgery for diverticulitis in 2007. Lymphatic system: there was no palpable peripheral lymphadenopathy Musculoskeletal System: The musculoskeletal system seemed concordant with age. Skin: The skin was negative for jaundice. Neurologic exam: The exam was negative for any focal findings. Deep tendon reflexes were equal and symmetrical. Psychiatric exam: Was essentially negative with normal mood and effect. Extremities: Negative for edema or erythema Laboratory Results Last 24 Hours Test 09/04/16 16:23 09/04/16 20:03 5/27/17 06:07 09/05/16 06:34 Bedside Glucose 130 mg/dl 128 mg/dl 100 mg/dl White Blood Count 11.31 K/uL Red Blood Count 4.36 M/uL Hemoglobin 13.2 g/dL Hematocrit 39.5 % Mean Corpuscular Volume 90.6 fL Mean Corpuscular Hemoglobin 30.3 pg Mean Corpuscular Hemoglobin Concent 33.4 g/dl Platelet Count 55 K/uL Mean Platelet Volume 12.7 fL Neutrophils (%) (Auto) 48.7 % Lymphocytes (%) (Auto) 24.5 % Monocytes (%) (Auto) 24.8 % Eosinophils (%) (Auto) 1.5 % Basophils (%) (Auto) 0.1 % Neutrophils # (Auto) 5.50 K/uL Lymphocytes # (Auto) 2.77 K/uL Monocytes # (Auto) 2.81 K/uL Eosinophils # (Auto) 0.17 K/uL Basophils # (Auto) 0.01 K/uL RDW Standard Deviation 50.4 fL RDW Coefficient of Variation 15.1 % Immature Granulocyte % (Auto) 0.4 % Immature Granulocyte # (Auto) 0.05 K/uL Sodium Level 142 mmol/L Potassium Level 3.6 mmol/L Chloride Level 107 mmol/L Carbon Dioxide Level 29 mmol/L Anion Gap 6.0 mmol/L Blood Urea Nitrogen 22 mg/dl Creatinine 0.74 mg/dl Est Creatinine Clear Calc Drug Dose 86.7 ml/min Estimated GFR () 103.8 Estimated GFR (Non- 89.6 BUN/Creatinine Ratio 29.4 Random Glucose 99 mg/dl Estimated Average Glucose 151 mg/dl Hemoglobin A1c 6.9 % Calcium Level 7.3 mg/dl Phosphorus Level 2.5 mg/dl Magnesium Level 2.2 mg/dl Digoxin Level 0.4 ng/ml Assessment & Plan Presumptive diagnosis of ITP. There is a clinical need for anticoagulation for atrial fibrillation. The patient has had a sub-Cherelle response to Decadron, prednisone and Rituxan. On September 03 he underwent a splenectomy area his platelet count is 55,000. We will arrange for follow-up in clinic. No other hematologic interventions is needed or planned at this time.
[2016-09-05] MEDS ORDERED: ENOXAPARIN 40 MG/0.4 ML SYR SQ SCH (12:00)
[2016-09-05] MEDS: DIGOXIN 0.125 MG TAB PO SCH (18:12)
[2016-09-05] MEDS: ZOLPIDEM TARTRATE 5 MG TAB PO SCH (21:23)
[2016-09-06 02:23] VITALS: PULSE 80; O2SAT 93
[2016-09-06 05:42] LABS: BASO % 0.2 %; BASO ABS # 0.03 K/uL (0-0.2); COMPLETE YES; EOS % 8.3 %; HEMATOCRIT 38.5 % (42-52); IG% 0.4 %; LYMPH % 19.5 %; LYMPH ABS # 2.65 K/uL (1.2-3.4); MEAN CELL VOLUME 87.9 fL (80-100); MEAN CORPUSCULAR HEMOGLOBIN 29.7 pg (25-34); MEAN CORPUSCULAR HGB CONC 33.8 g/dl (32-36); MEAN PLATELET VOLUME 11.8 fL (7.4-10.4); MONO % 17.8 %; NEUT % 53.8 %; PLATELET COUNT 86 K/uL (130-400); RED BLOOD COUNT 4.38 M/uL (4.7-6.1); WHITE BLOOD COUNT 13.62 K/uL (4.8-10.8)
[2016-09-06] MEDS: LEVOTHYROXINE 175 MCG TAB PO SCH (05:44)
--- NOTE | 2016-09-06 05:58 | Surgery Progress Note ---
Surgery Progress Note Date of Service September 06, 2016. Subjective + feeling well wants to go home Objective Vital Signs: Date Time Temp Pulse Resp B/P Pulse Ox O2 Delivery O2 Flow Rate FiO2 09/06/16 02:23 80 93 21 09/06/16 00:00 Room Air CPAP 09/05/16 23:32 36.9 96 16 130/71 94 Room Air 09/05/16 18:12 68 09/05/16 15:30 Room Air 09/05/16 15:08 36.8 75 18 120/76 96 Room Air 09/05/16 09:04 36.6 78 15 151/84 94 Room Air 09/05/16 09:00 94 Room Air 09/05/16 08:25 37.0 86 14 93 2.0 09/05/16 08:00 37.0 86 114/64 93 Room Air General Appearance: no apparent distress Respiratory/Chest: normal breath sounds Abdomen: soft Incision(s): intact (drainage around drain site), drainage (serous) Laboratory Results: Results Past 24 Hours Test 09/05/16 06:07 09/05/16 06:34 09/05/16 12:15 09/05/16 16:59 Range/Units White Blood Count 11.31 4.8-10.8 K/uL Red Blood Count 4.36 4.7-6.1 M/uL Hemoglobin 13.2 14.0-18.0 g/dL Hematocrit 39.5 42-52 % Mean Corpuscular Volume 90.6 80-100 fL Mean Corpuscular Hemoglobin 30.3 25-34 pg Mean Corpuscular Hemoglobin Concent 33.4 32-36 g/dl Platelet Count 55 130-400 K/uL Mean Platelet Volume 12.7 7.4-10.4 fL Neutrophils (%) (Auto) 48.7 % Lymphocytes (%) (Auto) 24.5 % Monocytes (%) (Auto) 24.8 % Eosinophils (%) (Auto) 1.5 % Basophils (%) (Auto) 0.1 % Neutrophils # (Auto) 5.50 1.4-6.5 K/uL Lymphocytes # (Auto) 2.77 1.2-3.4 K/uL Monocytes # (Auto) 2.81 0.11-0.59 K/uL Eosinophils # (Auto) 0.17 0-0.5 K/uL Basophils # (Auto) 0.01 0-0.2 K/uL RDW Standard Deviation 50.4 36.4-46.3 fL RDW Coefficient of Variation 15.1 11.5-14.5 % Immature Granulocyte % (Auto) 0.4 % Immature Granulocyte # (Auto) 0.05 0.00-0.02 K/uL Sodium Level 142 136-145 mmol/L Potassium Level 3.6 3.5-5.1 mmol/L Chloride Level 107 98-107 mmol/L Carbon Dioxide Level 29 21-32 mmol/L Anion Gap 6.0 3-11 mmol/L Blood Urea Nitrogen 22 7-18 mg/dl Creatinine 0.74 0.60-1.40 mg/dl Est Creatinine Clear Calc Drug Dose 86.7 ml/min Estimated GFR () 103.8 Estimated GFR (Non- 89.6 BUN/Creatinine Ratio 29.4 10-20 Random Glucose 99 70-99 mg/dl Estimated Average Glucose 151 mg/dl Hemoglobin A1c 6.9 4.5-5.6 % Calcium Level 7.3 8.5-10.1 mg/dl Phosphorus Level 2.5 2.5-4.9 mg/dl Magnesium Level 2.2 1.8-2.4 mg/dl Digoxin Level 0.4 0.8-2.0 ng/ml Bedside Glucose 100 140 130 70-99 mg/dl Test 09/05/16 20:35 09/06/16 05:10 Range/Units Bedside Glucose 158 70-99 mg/dl White Blood Count 13.62 4.8-10.8 K/uL Red Blood Count 4.38 4.7-6.1 M/uL Hemoglobin 13.0 14.0-18.0 g/dL Hematocrit 38.5 42-52 % Mean Corpuscular Volume 87.9 80-100 fL Mean Corpuscular Hemoglobin 29.7 25-34 pg Mean Corpuscular Hemoglobin Concent 33.8 32-36 g/dl Platelet Count 86 130-400 K/uL Mean Platelet Volume 11.8 7.4-10.4 fL Neutrophils (%) (Auto) 53.8 % Lymphocytes (%) (Auto) 19.5 % Monocytes (%) (Auto) 17.8 % Eosinophils (%) (Auto) 8.3 % Basophils (%) (Auto) 0.2 % Neutrophils # (Auto) 7.34 1.4-6.5 K/uL Lymphocytes # (Auto) 2.65 1.2-3.4 K/uL Monocytes # (Auto) 2.42 0.11-0.59 K/uL Eosinophils # (Auto) 1.13 0-0.5 K/uL Basophils # (Auto) 0.03 0-0.2 K/uL RDW Standard Deviation 48.0 36.4-46.3 fL RDW Coefficient of Variation 14.9 11.5-14.5 % Immature Granulocyte % (Auto) 0.4 % Immature Granulocyte # (Auto) 0.05 0.00-0.02 K/uL Nucleated RBC Absolute Count (auto) 0.06 0-0 K/uL Nucleated Red Blood Cells % 0.4 % Assessment & Plan 09/06/16- pt is stable, serous drainage- d/c ROMEO- will plan to d/c home today 09/05/16- doing well- to regular floor. d/c hutton, leave drain. advance diet/ activity. probable d/c tomorrow 09/05/16- doing well- to regular floor. d/c hutton, leave drain. advance diet/ activity. probable d/c tomorrow
[2016-09-06 06:11] LABS: BUN/CREATININE RATIO 21.3 (10-20); CALCIUM 7.3 mg/dl (8.5-10.1); CREATININE 0.69 mg/dl (0.60-1.40); POTASSIUM 3.5 mmol/L (3.5-5.1)
[2016-09-06 06:12] LABS: PHOSPHORUS 2.8 mg/dl (2.5-4.9)
[2016-09-06 07:06] VITALS: BP 134/83; PULSE 82; TEMP 36.7; O2SAT 95
[2016-09-06] MEDS: LACTULOSE SYRUP 10 GM/15 ML BTL 473 ML PO SCH (08:48)
[2016-09-06] MEDS: PANTOprazole SOD 40 MG TAB PO SCH (08:48)
[2016-09-06] MEDS: RIFAXIMIN TAB 550 MG TAB PO SCH (08:48)
[2016-09-06] MEDS: CARVEDILOL 12.5 MG TAB PO SCH (08:48)
[2016-09-06] MEDS: INSULIN ASPART 100 UNITS/ML 3 ML PEN SC SCH (08:50)
[2016-09-06 09:28] VITALS: BP 134/83; PULSE 82; TEMP 36.7; O2SAT 95
--- NOTE | 2016-09-10 02:11 | DISCHARGE SUMMARY ---
PRIMARY DISCHARGE DIAGNOSES: 1. 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 2. Postoperative anemia. SECONDARY DISCHARGE DIAGNOSES: 1. Cirrhosis. 2. Type 2 diabetes. 3. Hypertension. 4. Cardiomyopathy. 5. Atrial fibrillation. 6. Hypertension. 7. Hypothyroidism. 8. Sleep apnea. PROCEDURE PERFORMED: Laparoscopic splenectomy and lysis of adhesions. CONSULTATIONS: 1. [facility] Financial Services Auditor for perioperative care. 2. [facility] hospitalist for routine medical management. 3. Hematology for routine followup and to arrange outpatient followup. HOSPITAL COURSE: The patient is a 76-year-old male with ITP admitted through same day and taken to the operating room for laparoscopic splenectomy. The procedure was well tolerated. Intraoperative blood loss was about 700 mL. He did have a mild postoperative anemia, but equilibrated at 13 and 38. He did not require transfusion of red blood cells. He was transfused 2 units of platelets intraoperatively. His platelet count was 85,000 on postoperative day 1 and also at the time of discharge. He was taken to the ICU postoperatively for overnight observation given his complex past medical history. He remained stable overnight, was transferred to PCU on postoperative day #1. He was able to tolerate an advancing diet. ROMEO drainage was mostly serous. He was increasing activity. By day 3, he was stable for discharge. ROMEO drainage was 50 mL overnight. The ROMEO was removed. Incisions were clean and dry. DISCHARGE INSTRUCTIONS: Discharge home. Follow up with Dr. Ma in 2 weeks. He will follow up with hematology as an outpatient for further recommendations regarding anticoagulation for his atrial fibrillation. DISCHARGE MEDICATIONS: Leeds 1 or 2 tablets every 4 hours as needed with no additional Tylenol whilst taking the Leeds. Resume other home medications Coreg 12.5 mg b.i.d., digoxin 0.125 mg daily, glipizide 5 mg b.i.d., lactulose 6.67 g b.i.d., levothyroxine 175 mcg daily, magnesium oxide 400 mg b.i.d., Prilosec is 40 mg b.i.d., Zofran 4 mg as needed, Zantac 150 mg at bedtime, Xifaxan 550 mg b.i.d., Requip 0.25 mg at bedtime as needed and Ambien 5 mg at bedtime.
== END 2016-09-06 09:51 | disposition home or self-care (01) | DRG 800 ==
LOC: ENRESERVDT → ENRESERVTM → C.ACU 08:52 → C.MSICU 13:42 → C.2E 09-04 15:07 → C.MSW 09-05 09:12
PROVIDERS: ADMIT Surgery; ATTEND Surgery
PROC: 07TP4ZZ Resection of Spleen, Percutaneous Endoscopic Approach (ICD-10-PCS; principal; 2016-09-03 11:00)
DX: D69.3 Immune thrombocytopenic purpura (principal); D62 Acute posthemorrhagic anemia; I42.9 Cardiomyopathy, unspecified; K74.60 Unspecified cirrhosis of liver; I10 Essential (primary) hypertension; E03.9 Hypothyroidism, unspecified; E11.9 Type 2 diabetes mellitus without complications; G47.30 Sleep apnea, unspecified; K44.9 Diaphragmatic hernia without obstruction or gangrene; I48.91 Unspecified atrial fibrillation; Z79.899 Other long term (current) drug therapy

== ENCOUNTER → 2016-09-16 | Outpatient (CLI) | payer OTHER ==
[~2016-09-16] MED LIST changes: -ACET325T96 PO; -CEFAZOLIN 2000 MG/60 ML D5W IV SCH; +HYDR-5688 PO; -LACTATED RINGER'S 1000ML 1,000 ML IV SCH
[2016-09-16 10:42] LABS: HEMATOCRIT 43.5 % (42-52); MEAN CELL VOLUME 93.1 fL (80-100); MEAN CORPUSCULAR HEMOGLOBIN 29.1 pg (25-34); MEAN CORPUSCULAR HGB CONC 31.3 g/dl (32-36); MEAN PLATELET VOLUME 11.4 fL (7.4-10.4); PLATELET COUNT 235 K/uL (130-400); RED BLOOD COUNT 4.67 M/uL (4.7-6.1); WHITE BLOOD COUNT 11.09 K/uL (4.8-10.8)
== END ==
LOC: C.LAB 09:58
PROVIDERS: ATTEND Surgery
DX: K25.9 Gastric ulcer, unspecified as acute or chronic, without hemorrhage or perforation (principal); K92.2 Gastrointestinal hemorrhage, unspecified

== ENCOUNTER 2017-07-23 16:44 | Emergency (ER) | payer OTHER ==
[~2017-07-23] VITALS: Ht 172.7 cm; Wt 88.9 kg
[~2017-07-23 16:44] MED LIST changes: -HYDR-5688 PO; +RANI150T85 PO; -ZNTT/150 PO
[2017-07-23 17:04] VITALS: TEMP 36.7; Ht 172.7 cm; Wt 88.9 kg
[2017-07-23] MEDS ORDERED: SODIUM CHLORIDE 0.9% 1000ML 1,000 ML IV STA (17:11)
--- NOTE | 2017-07-23 17:12 | EMERGENCY ROOM VISIT NOTE ---
History Report prepared by Hi: Sumit Romero Under the Supervision of: Dr. Christopher Beal M.D. First contact with patient: 17:07 Chief Complaint: ABNORMAL LABS Stated Complaint: LOW BLOOD History of Present Illness The patient is a 77 year old male who presents to the Emergency Room with persistent abnormal labs that were detected prior to arrival today. Per the patient's , the patient was having routine blood work done this morning at the [facility], and the patient was then called this afternoon and told to come here due to a low platelet count. His platelet count was noted to be 6000. The patient states that he has a history of cirrhosis, and is followed-up with the [facility] for that. He was told that he has fatty liver. He says that he has had an ostomy bag since 2007. The patient notes a history of a colectomy, and stent placement in his liver and spleen. He denies any abdominal pain, headaches, chest pain, shortness of breath, hematochezia, or urinary symptoms. He notes no history of notable alcohol use. 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 A total of ten systems were reviewed and were otherwise negative. Past Medical & Surgical Medical Problems: (1) A-fib (2) Anemia (3) Anemia (4) Atrial Fibrillation (5) Bleeding (6) Bleeding from colostomy (7) Bleeding from colostomy (8) Bleeding from colostomy (9) Bleeding ulcer (10) Chest pain (11) Chronic anticoagulation (12) Chronic ITP (idiopathic thrombocytopenia) (13) Chronic Liver Dis Nec (14) Cirrhosis (15) Congestive Heart Failure Nos (16) Coronary artery disease (17) Diab Caren Wo Compl, Type Ii Or Unspec Type, Not Uncntrld (18) Diverticulitis (19) Dyslipidemia (20) GERD (gastroesophageal reflux disease) (21) GI (gastrointestinal bleed) (22) GI (gastrointestinal bleed) (23) GI bleed (24) History of ulcer disease (25) Hypertension Nos (26) Idiopathic thrombocytopenia purpura (27) Obstructive sleep apnea (28) s/p ligation ileostomy bleed (29) Warfarin-induced coagulopathy Surgical Problems: (1) Auto Implantable Cardiac Defibrillator In Situ (2) Colostomy in place (3) Post-splenectomy (4) S/P splenectomy during current hospitalization Family History Cancer Diabetes mellitus Heart disease Hypertension Lung disease Social History Smoking Status: Never Smoker Alcohol Use: none Drug Use: none Marital Status: Housing Status: lives with significant other Occupation Status: employed Current/Historical Medications Scheduled Carvedilol (Coreg), 12.5 MG PO BID Digoxin (Lanoxin), 0.125 MG PO 1800 Glipizide (Glipizide), 5 MG PO BIDM Lactulose (Chronulac), 6.67 GM PO BID Levothyroxine Sodium (Levothyroxine Sodium), 175 MCG PO QAM Magnesium Oxide (Mag-Ox), 400 MG PO BID Omeprazole (Prilosec), 40 MG PO BID Ondansetron Hcl (Zofran), 4 MG PO BID Ranitidine (Zantac), 150 MG PO HS Rifaximin (Xifaxan), 550 MG PO BID Zolpidem Tartrate (Zolpidem Tartrate), 1 TAB PO HS Scheduled PRN Ropinirole Hydrochloride (Requip), 0.25 MG PO HS PRN for RLS Allergies Coded Allergies: No Known Allergies (Unverified , 09/03/16) Physical Exam Vital Signs Date Time Temp Pulse Resp B/P (MAP) Pulse Ox O2 Delivery O2 Flow Rate FiO2 07/23/17 18:31 123/70 07/23/17 18:30 85 16 94 Room Air 07/23/17 18:01 109/75 07/23/17 18:00 67 14 95 Room Air 07/23/17 17:41 78 20 111/66 94 Room Air 07/23/17 17:41 Room Air 07/23/17 17:30 81 07/23/17 17:04 36.7 76 18 120/78 95 Room Air Physical Exam Physical Exam GENERAL: He is oriented to person, place, and time. He appears well-developed and well-nourished. He does not appear distressed. ____ HENT: Exam performed. Head: Normocephalic and atraumatic. Right Ear: External ear normal. No mastoid tenderness. Left Ear: External ear normal. No mastoid tenderness. Mouth/Throat: The oropharynx is clear and moist. No trismus in the jaw. No dental abscesses or uvula swelling. No oropharyngeal exudate or tonsillar abscesses. ____ EYES: Conjunctivae and EOM are normal. Pupils are equal, round, and reactive to light. Right eye exhibits no discharge. Left eye exhibits no discharge. No scleral icterus. ____ NECK: Normal range of motion. Neck supple. No JVD present. No spinous process tenderness present. No carotid bruit present. No rigidity. No tracheal deviation and normal range of motion present. No Brudzinski's sign and no Kernig 's sign noted. ____ CV: Normal rate, regular rhythm, normal heart sounds and intact distal pulses. There is no peripheral edema. Palpable radial pulses bue. ____ PULM/CHEST: Effort normal and breath sounds normal. No respiratory distress. No stridor. He has no wheezes. He has no rales. Chest Wall: He exhibits no tenderness. ____ ABD: The abdomen is soft. Ostomy bag present. Multiple scars present. Bowel sounds are normal. He has no distension. No mass is present. There is no tenderness. There is no rebound, no guarding, no Forte's sign and no tenderness at McBurney's point. Rovsig negative MUSC/SKEL: Normal range of motion. There is no peripheral edema, tenderness or deformity. LYMPH: No cervical adenopathy. ____ NEURO: He is alert and oriented to person, place, and time. He has normal strength. No cranial nerve deficit or sensory deficit. Coordination and gait normal. GCS eye subscore is 4. GCS verbal subscore is 5. GCS motor subscore is 6. Cerebellar tests wnl. ____ SKIN: Skin is warm and dry. He is not diaphoretic. ____ PSYCH: He has a normal mood and affect. He behavior is normal. Judgment and thought content normal. ____ Medical Decision & Procedures Laboratory Results 07/23/17 17:31 Red Blood Count 5.00, Mean Corpuscular Volume 87.0, Mean Corpuscular Hemoglobin 28.6, Mean Corpuscular Hemoglobin Concent 32.9, Neutrophils (%) (Auto) 27.9, Lymphocytes (%) (Auto) 45.9, Monocytes (%) (Auto) 14.0, Eosinophils (%) (Auto) 9.2, Basophils (%) (Auto) 2.7, Neutrophils # (Auto) 3.10, Lymphocytes # (Auto) 5.10, Monocytes # (Auto) 1.55, Eosinophils # (Auto) 1.02, Basophils # (Auto) 0.30 07/23/17 17:31 Test 07/23/17 17:31 07/23/17 18:30 White Blood Count 11.10 K/uL (4.8-10.8) Red Blood Count 5.00 M/uL (4.7-6.1) Hemoglobin 14.3 g/dL (14.0-18.0) Hematocrit 43.5 % (42-52) Mean Corpuscular Volume 87.0 fL (80-100) Mean Corpuscular Hemoglobin 28.6 pg (25-34) Mean Corpuscular Hemoglobin Concent 32.9 g/dl (32-36) Platelet Count 90 K/uL (130-400) Neutrophils (%) (Auto) 27.9 % Lymphocytes (%) (Auto) 45.9 % Monocytes (%) (Auto) 14.0 % Eosinophils (%) (Auto) 9.2 % Basophils (%) (Auto) 2.7 % Neutrophils # (Auto) 3.10 K/uL (1.4-6.5) Lymphocytes # (Auto) 5.10 K/uL (1.2-3.4) Monocytes # (Auto) 1.55 K/uL (0.11-0.59) Eosinophils # (Auto) 1.02 K/uL (0-0.5) Basophils # (Auto) 0.30 K/uL (0-0.2) RDW Standard Deviation 55.7 fL (36.4-46.3) RDW Coefficient of Variation 17.4 % (11.5-14.5) Immature Granulocyte % (Auto) 0.3 % Immature Granulocyte # (Auto) 0.03 K/uL (0.00-0.02) Platelet Estimate DECREASED Large Platelets 1+ Poikilocytosis PRESENT Anisocytosis PRESENT Chavez-Williford Bodies 1+ Anion Gap 7.0 mmol/L (3-11) Est Creatinine Clear Calc Drug Dose 50.8 ml/min Estimated GFR () 59.9 Estimated GFR (Non- 51.7 BUN/Creatinine Ratio 12.7 (10-20) Calcium Level 8.5 mg/dl (8.5-10.1) Total Bilirubin 0.7 mg/dl (0.2-1) Direct Bilirubin mg/dl (0-0.2) Aspartate Amino Transf (AST/SGOT) 34 U/L (15-37) Alanine Aminotransferase (ALT/SGPT) 29 U/L (12-78) Alkaline Phosphatase 142 U/L (45-117) Ammonia 143.9 umol/L (11-32) Total Protein 5.9 gm/dl (6.4-8.2) Albumin 3.2 gm/dl (3.4-5.0) Lipase 265 U/L (73-393) Chemistry Specimen Hemolysis Prothrombin Time 28.1 SECONDS (9.0-12.0) Prothromb Time International Ratio 2.7 (0.9-1.1) Activated Partial Thromboplast Time 34.1 SECONDS (21.0-31.0) Partial Thromboplastin Ratio 1.3 Laboratory results reviewed by me Medications Administered Medications (Trade) Dose Ordered Sig/Kala Route Start Time Stop Time Status Last Admin Dose Admin Sodium Chloride 1,000 ml @ 125 mls/hr Q8H STAT IV 07/23/17 17:11 07/24/17 01:10 07/23/17 17:42 125 MLS/HR ECG Per My Interpretation Indication: toxicologic Rate (beats per minute): 81 Rhythm: atrial flutter Findings: PVC, other (QRS, QTC are within normal limits) ED Course 1707: The patient was evaluated in room B2. A complete history and physical exam was performed. 1710: NSS 1000 ml @ 125 mls/hr IV. 1926: Vital signs stable. Labs show a platelet count of 90. INR is 2.7. Ammonia level 143.9.I discussed the patient with Dr. Garcia - aluminum fabrication supervisor for the [facility] - he states that the patient's platelet count earlier today was 60, not 6. He is on Coumadin 2 mg. His INR earlier today was 2.9. He has not had an ammonia level checked within the last year. The patient is awake, alert, and oriented x4 and in no acute distress. Dr. Garcia says to up the Lactulose to 10 mg 3 times daily. The patient can be discharged. DISCHARGE - Plan of care discussed with patient and questions answered. The patient was given both verbal and printed discharge instructions. The patient verbalized understanding and ability to comply. The patient is to seek outpatient follow up as noted in the discharge instructions. The patient verbalized understanding and ability to comply. The patient is discharged in stable condition. The patient was instructed to return for worsening symptoms. 1941: Chronulac Syrup 30 gm PO. Medical Decision Vital signs stable. Labs show a platelet count of 90. INR is 2.7. Ammonia level 143.9.I discussed the patient with Dr. Garcia - aluminum fabrication supervisor for the [facility] - he states that the patient's platelet count earlier today was 60, not 6. He is on Coumadin 2 mg. His INR earlier today was 2.9. He has not had an ammonia level checked within the last year. The patient is awake, alert, and oriented x4 and in no acute distress. Dr. Garcia says to up the Lactulose to 10 mg 3 times daily. The patient can be discharged. DISCHARGE - Plan of care discussed with patient and questions answered. The patient was given both verbal and printed discharge instructions. The patient verbalized understanding and ability to comply. The patient is to seek outpatient follow up as noted in the discharge instructions. The patient verbalized understanding and ability to comply. The patient is discharged in stable condition. The patient was instructed to return for worsening symptoms. Medication Reconcilliation Current Medication List: was personally reviewed by me Blood Pressure Screening Patient's blood pressure: Normal blood pressure Consults Time Called: 1919 Consulting Physician: Dr. Garcia - aluminum fabrication supervisor for the [facility] Returned Call: 1926 I discussed the patient with Dr. Garcia - aluminum fabrication supervisor for the [facility] - he states that the patient's platelet count earlier today was 60, not 6. He is on Coumadin 2 mg. His INR earlier today was 2.9. He has not had an ammonia level checked within the last year. The patient is awake, alert, and oriented x4 and in no acute distress. Dr. Garcia says to up the Lactulose to 10 mg 3 times daily. The patient can be discharged. Impression Primary Impression: Serum ammonia increased Additional Impression: Thrombocytopenia Scribe Attestation The scribe's documentation has been prepared under my direction and personally reviewed by me in its entirety. I confirm that the note above accurately reflects all work, treatment, procedures, and medical decision making performed by me. The chart was completed utilizing [employer] Speech voice recognition software. Grammatical errors, random word insertions, pronoun errors, and incomplete sentences are an occasional consequence of this system due to software limitations, ambient noise, and hardware issues. Any formal questions or concerns about the content, text, or information contained within the body of this dictation should be directly addressed to the physician for clarification. Departure Information Dispostion Home / Self-Care Referrals No Doctor, Assigned (PCP) Patient Instructions My [facility] Additional Instructions Begin taking her lactulose 10 mg orally 3 times daily. [facility] Return to the emergency department if you develop fever greater than 100.4, rashes, blood in your stool, blood in urine, headache, cough up blood, chest pain, difficulty breathing, confusion, seizure Problem Qualifiers
[2017-07-23 18:01] LABS: MEAN CORPUSCULAR HGB CONC 32.9 g/dl (32-36)
[2017-07-23 18:22] LABS: HEMATOCRIT 43.5 % (42-52); HEMOGLOBIN 14.3 g/dL (14.0-18.0); MEAN CORPUSCULAR HEMOGLOBIN 28.6 pg (25-34); RED CELL DISTRIBUTION WIDTH CV 17.4 % (11.5-14.5); RED CELL DISTRIBUTION WIDTH SD 55.7 fL (36.4-46.3)
[2017-07-23 18:43] LABS: ALBUMIN 3.2 gm/dl (3.4-5.0); ALKALINE PHOSPHATASE 142 U/L (45-117); ALT/SGPT 29 U/L (12-78); AST/SGOT 34 U/L (15-37); BLOOD UREA NITROGEN 17 mg/dl (7-18); CALCIUM 8.5 mg/dl (8.5-10.1); CARBON DIOXIDE 23 mmol/L (21-32); CREATININE 1.32 mg/dl (0.60-1.40); GLUCOSE 123 mg/dl (70-99); LIPASE 265 U/L (73-393); POTASSIUM 4.3 mmol/L (3.5-5.1); SODIUM 140 mmol/L (136-145); TOTAL PROTEIN 5.9 gm/dl (6.4-8.2)
[2017-07-23 18:56] LABS: INR 2.7 (0.9-1.1); PTT PATIENT 34.1 SECONDS (21.0-31.0)
[2017-07-23 18:59] LABS: PLATELET COUNT 90 K/uL (130-400)
[2017-07-23 19:01] LABS: BASO % 2.7 %; EOS % 9.2 %; EOS ABS # 1.02 K/uL (0-0.5); IG# 0.03 K/uL (0.00-0.02); LYMPH % 45.9 %; MONO ABS # 1.55 K/uL (0.11-0.59); NEUT % 27.9 %
[2017-07-23] MEDS ORDERED: LACTULOSE SYRUP 20 GM/30 ML UDC PO STA (19:42)
[2017-07-23 20:35] VITALS: BP 142/73; PULSE 78; O2SAT 97
== END 2017-07-23 20:35 | disposition home or self-care (01) ==
LOC: C.EDB 16:46
DX: E72.20 Disorder of urea cycle metabolism, unspecified (principal); D69.3 Immune thrombocytopenic purpura; K74.60 Unspecified cirrhosis of liver; Z93.3 Colostomy status; Z90.49 Acquired absence of other specified parts of digestive tract; I11.0 Hypertensive heart disease with heart failure; I48.91 Unspecified atrial fibrillation; I25.10 Atherosclerotic heart disease of native coronary artery without angina pectoris; E11.9 Type 2 diabetes mellitus without complications; E78.5 Hyperlipidemia, unspecified; K21.9 Gastro-esophageal reflux disease without esophagitis; G47.33 Obstructive sleep apnea (adult) (pediatric); Z95.810 Presence of automatic (implantable) cardiac defibrillator; Z90.81 Acquired absence of spleen; Z80.9 Family history of malignant neoplasm, unspecified; Z83.3 Family history of diabetes mellitus; Z82.49 Family history of ischemic heart disease and other diseases of the circulatory system; Z79.84 Long term (current) use of oral hypoglycemic drugs; Z79.899 Other long term (current) drug therapy

== ENCOUNTER → 2017-08-10 | Day surgery (SDC) | payer OTHER ==
[2017-08-03 15:39] VITALS: Ht 172.7 cm; Wt 85.0 kg
[~2017-08-10] VITALS: Ht 172.7 cm; Wt 85.0 kg
[~2017-08-10] MED LIST changes: +ACET-1693 PO; +LIDOCAINE HCL 2% 2 ML VIAL (20MG/ML) ONE; +ONDANSETRON INJ 2 MG/ML 2 ML VIAL IV PRN; +PROPOFOL IV EMULSION 10 MG/ML 20 ML VIAL ONE; +WARF5TAB7 PO
--- NOTE | 2017-08-10 11:12 | Endo History and Physical ---
History & Physical Date of Service: August 10, 2017. Chief Complaint: N/V Referring Physician: ALFIE REYNOLDS PA-C History of Present Illness Patient referred for upper endoscopy due to history of nausea ongoing for 12 months. He denies having any fevers chills or weight loss. He denies having any difficulty with swallowing or pain with swallowing. He does have a history of cirrhosis and had his last upper endoscopy over 3 years ago. He is primarily managed at the [facility]. Past Medical History Atrial Fibrillation, Diabetes, Angioplasty/Stent, Pacemaker, Heart Disease, CHF , Hypertension, Thyroid Disease, CVA/TIA Past Surgical History Hx Cardiac Surgery: Yes (CARDIAC CATH 2 STENTS 01/2009) Hx Internal Defibrillator: Yes (PACEMAKER DEFIB 06/2007, REPLACEMENT BATTERY) Hx Pacemaker: Yes Hx Abdominal Surgery: Yes (BOWEL RESECTION WITH COLOSTOMY,TIPS PROCEDURE, SPLEENECTOMY 2016) Hx of Implantable Prosthesis: No Hx Post-Op Nausea and Vomiting: No Hx Cancer Surgery: No Hx Thoracic Surgery: No Hx Orthopedic: No Hx Urinary Tract Surgery: No Family History None Social History Smoking Status: Former Smoker Hx Substance Use: No Hx Alcohol Use: Yes (OCCASIONAL) Allergies Coded Allergies: No Known Allergies (Unverified , 08/10/17) Current Medications Reported Home Medications Medications Dose Route/Sig Max Daily Dose Days Date Category Jantoven (Warfarin Sodium) 5 Mg Tab 5 Mg PO DAILY 08/03/17 Reported Tylenol (Acetaminophen) 325 Mg Tab 325 Mg PO Q6 PRN 08/03/17 Reported Chronulac (Lactulose) 10 Gm/15 Ml Syrp 6.67 Gm PO TID 08/13/16 Reported Zolpidem Tartrate 5 Mg Tab 1 Tab PO HS 30 08/13/16 Reported Xifaxan (Rifaximin) 550 Mg Tab 550 Mg PO BID 08/13/16 Reported Zantac (Ranitidine HCl) 150 Mg Tab 150 Mg PO HS 08/13/16 Reported Prilosec (Omeprazole) 20 Mg Capcr 40 Mg PO BID 03/09/16 Reported Zofran (Ondansetron HCl) 4 Mg Tab 4 Mg PO BID 03/09/16 Reported Coreg (Carvedilol) 12.5 Mg Tab 12.5 Mg PO BID 07/13/14 Reported Mag-Ox (Magnesium Oxide) 400 Mg Tab 400 Mg PO BID 05/31/14 Reported Glipizide 5 Mg Tab 5 Mg PO BIDM 05/31/14 Reported Requip (Ropinirole Hydrochloride) 0.25 Mg Tab 0.25 Mg PO HS PRN 02/13/14 Reported Levothyroxine Sodium 175 Mcg Tab 175 Mcg PO QAM 02/13/14 Reported Lanoxin (Digoxin) 0.125 Mg Tab 0.125 Mg PO 1800 01/24/14 Reported Vital Signs Weight (Kilograms): 85 Height (Feet): 5 Height (Inches): 8 Date Time Temp Pulse Resp B/P (MAP) Pulse Ox O2 Delivery O2 Flow Rate FiO2 08/10/17 10:34 36.4 54 20 129/82 (98) 97 Room Air Physical Exam General Appearance: no apparent distress Respiratory/Chest: Auscultation: breath sounds normal Cardiovascular: Heart Auscultation: II/ LOGAN Abdomen: Inspection & Palpation: soft Assessment and Plan We have discussed the risks and benefits of upper endoscopy bleeding, infection , perforation, pain aspiration and cardiovascular complications. If the examination is negative he may want to consider follow-up with his primary care provider to determine if a right upper quadrant ultrasound would be beneficial.
--- NOTE | 2017-08-10 11:39 | GI REPORT ---
Patient Name: Mendoza Bryant Procedure Date: 08/10/2017 11:04 AM Date of : 1940 Admit Type: Outpatient Age: 77 Gender: Male Attending MD: Magdy Tatum DO Procedure: Upper GI endoscopy Providers: Magdy Tatum DO Referring MD: MITCH Kim Indications: Nausea Medicines: Monitored Anesthesia Care Complications: No immediate complications. Estimated blood loss: Minimal. Estimated Blood Loss: Estimated blood loss was minimal. Procedure: Pre-Anesthesia Assessment: - Prior to the procedure, a History and Physical was performed, and patient medications, allergies and sensitivities were reviewed. The patient's tolerance of previous anesthesia was reviewed. - The risks and benefits of the procedure and the sedation options and risks were discussed with the patient. All questions were answered and informed consent was obtained. - Patient identification and proposed procedure were verified prior to the procedure by the physician, the nurse and the industrial specialist. The procedure was verified in the procedure room. - Pre-procedure physical examination revealed no contraindications to sedation. - ASA Grade Assessment: IV - A patient with severe systemic disease that is a constant threat to life. - After reviewing the risks and benefits, the patient was deemed in satisfactory condition to undergo the procedure. - The anesthesia plan was to use monitored anesthesia care (MAC). - Immediately prior to administration of medications, the patient was re-assessed for adequacy to receive sedatives. - The heart rate, respiratory rate, oxygen saturations, blood pressure, adequacy of pulmonary ventilation, and response to care were monitored throughout the procedure. - The physical status of the patient was re-assessed after the procedure. After obtaining informed consent, the endoscope was passed under direct vision. Throughout the procedure, the patient's blood pressure, pulse, and oxygen saturations were monitored continuously. The On-site loaner was introduced through the mouth, and advanced to the third part of duodenum. The upper GI endoscopy was accomplished without difficulty. The patient tolerated the procedure well. Findings: The examined esophagus was normal. The Z-line was regular and was found 39 cm from the incisors. Diffuse mild inflammation characterized by erythema and granularity was found in the entire examined stomach. Biopsies were taken with a cold forceps for histology. Estimated blood loss was minimal. A single 12 mm semi-sessile polyp with no stigmata of recent bleeding was found on the anterior wall of the gastric antrum. Biopsies were taken with a cold forceps for histology. Estimated blood loss was minimal. The examined duodenum was normal. Biopsies for histology were taken with a cold forceps for evaluation of celiac disease. Estimated blood loss was minimal. Impression: - Normal esophagus. - Z-line regular, 39 cm from the incisors. - Chronic gastritis. Biopsied. - A single gastric polyp. Biopsied. - Normal examined duodenum. Biopsied. Recommendation: - Discharge patient to home (ambulatory). - Advance diet as tolerated today. - Await pathology results. - Consider a RUQ US if nausea persists (evaluation for cholelithiasis) - If polyp adenomatous would offer EUS and repeat EGD with EMR. Magdy Tatum D.O. Magdy Tatum, 08/10/2017 11:38:36 AM This report has been signed electronically. Note Initiated On: 08/10/2017 11:04 AM Number of Addenda: 0 I attest to the content of the Intraoperative Record and orders documented therein, exceptions below {[id number]}
--- NOTE | 2017-08-10 11:40 | Discharge Instructions ---
Endoscopy Patient Instructions Date / Procedure(s) Performed August 10, 2017. EGD Allergy Information Coded Allergies: No Known Allergies (Unverified , 08/10/17) Discharge Date / Findings August 10, 2017. Mild gastritis 1 gastric polyp Medication Instructions Stopped Medication(s): Wafarin stopped 08/07/17 bridged with lovenox injections Reported Home Medications Medications Dose Route/Sig Max Daily Dose Days Date Category Jantoven (Warfarin Sodium) 5 Mg Tab 5 Mg PO DAILY 08/03/17 Reported Tylenol (Acetaminophen) 325 Mg Tab 325 Mg PO Q6 PRN 08/03/17 Reported Chronulac (Lactulose) 10 Gm/15 Ml Syrp 6.67 Gm PO TID 08/13/16 Reported Zolpidem Tartrate 5 Mg Tab 1 Tab PO HS 30 08/13/16 Reported Xifaxan (Rifaximin) 550 Mg Tab 550 Mg PO BID 08/13/16 Reported Zantac (Ranitidine HCl) 150 Mg Tab 150 Mg PO HS 08/13/16 Reported Prilosec (Omeprazole) 20 Mg Capcr 40 Mg PO BID 03/09/16 Reported Zofran (Ondansetron HCl) 4 Mg Tab 4 Mg PO BID 03/09/16 Reported Coreg (Carvedilol) 12.5 Mg Tab 12.5 Mg PO BID 07/13/14 Reported Mag-Ox (Magnesium Oxide) 400 Mg Tab 400 Mg PO BID 05/31/14 Reported Glipizide 5 Mg Tab 5 Mg PO BIDM 05/31/14 Reported Requip (Ropinirole Hydrochloride) 0.25 Mg Tab 0.25 Mg PO HS PRN 02/13/14 Reported Levothyroxine Sodium 175 Mcg Tab 175 Mcg PO QAM 02/13/14 Reported Lanoxin (Digoxin) 0.125 Mg Tab 0.125 Mg PO 1800 01/24/14 Reported Provider Instructions Activity Restrictions - No exercising or heavy lifting for 24 hours. - Do not drink alcohol the day of the procedure. - Do not drive a car or operate machinery until the day after the procedure. - Do not make any important decisions or sign important papers in 24 hours after the procedure. Following Day: - Return to full activity which may include returning to work/school. Diet Start your diet with liquids and light foods (jello, soup, juice, toast). Then eat your usual diet if not nauseated. Treatment For Common After Affects For mild abdominal pain, bloating, or excessive gas: - Rest - Eat lightly - Lie on right side Follow-Up Information Follow-up with ALFIE REYNOLDS PA-C as scheduled Consider right upper quadrant ultrasound to evaluate the gallbladder If gastric polyp found to be adenomatous would recommend upper endoscopy with endoscopic mucosal resection Anesthesia Information What You Should Know You have had a procedure that required some medicine to reduce anxiety and discomfort. This treatment is called moderate sedation. After receiving the treatment, you may be sleepy, but you will be able to breathe on your own. The effects of the treatment may last for several hours. Follow these instructions along with Activity/Diet recommendations noted above: * Do NOT do anything where dizziness or clumsiness would be dangerous. * Rest quietly at home today, then you can be up and about tomorrow. * Have a responsible person stay with you the rest of today. * You may have had an I.V. today. If so, you may take the dressing off later today. Recommendations Call your doctor if: * Trouble breathing * Continuous vomiting for more than 24 hours * Temperature above 101 degrees * Severe abdominal pain or bloating * Pain not relieved by pain medicine ordered * There is increased drainage or redness from any incision * A large amount of rectal bleeding greater than 2-3 tablespoons. (If you had a polyp/s removed or have hemorrhoids, a small amount of blood - from the rectum is to be expected.) * You have any unanswered questions or concerns. IN THE EVENT OF A SERIOUS EMERGENCY, GO TO THE NEAREST EMERGENCY ROOM Your discharge instructions were prepared by provider Magdy Tatum. Patient Instructions Signature Page Mendoza Bryant Patient (or Guardian) Signature/Date: I have read and understand the instructions given to me by my caregivers. Caregiver/RN/Doctor Signature/Date: The above-named patient and/or guardian has received patient instructions on this date. + Original Patient Signature Page (only) stays with chart. Please make copy for patient.
[2017-08-10 11:45] VITALS: BP 129/76; PULSE 76; O2SAT 97
--- NOTE | 2017-08-10 12:23 | Anesthesiology Progress Note ---
Anesthesia Post Op Note Date & Time August 10, 2017 at 12:23 Vital Signs Pain Intensity: 0 Vital Signs Past 12 Hours Date Time Temp Pulse Resp B/P (MAP) Pulse Ox O2 Delivery O2 Flow Rate FiO2 08/10/17 11:45 76 16 129/76 (93) 97 Room Air 08/10/17 11:35 61 16 121/72 (88) 96 Room Air 08/10/17 10:34 36.4 54 20 129/82 (98) 97 Room Air Notes Mental Status: alert / awake / arousable, participated in evaluation Pt Amnestic to Procedure: Yes Nausea / Vomiting: adequately controlled Pain: adequately controlled Airway Patency, RR, SpO2: stable & adequate BP & HR: stable & adequate Hydration State: stable & adequate Anesthetic Complications: no major complications apparent
== END | disposition home or self-care (01) ==
LOC: C.GI 09:51
PROVIDERS: ATTEND Internal Medicine Gastroenterology
DX: R11.2 Nausea with vomiting, unspecified (principal); K29.50 Unspecified chronic gastritis without bleeding; I48.91 Unspecified atrial fibrillation; E11.9 Type 2 diabetes mellitus without complications; K74.60 Unspecified cirrhosis of liver; I51.9 Heart disease, unspecified; G47.33 Obstructive sleep apnea (adult) (pediatric); I50.9 Heart failure, unspecified; I11.0 Hypertensive heart disease with heart failure; E07.9 Disorder of thyroid, unspecified; Z86.73 Personal history of transient ischemic attack (TIA), and cerebral infarction without residual deficits; Z95.0 Presence of cardiac pacemaker; Z95.5 Presence of coronary angioplasty implant and graft; Z87.891 Personal history of nicotine dependence; Z79.01 Long term (current) use of anticoagulants; Z79.899 Other long term (current) drug therapy; Z95.810 Presence of automatic (implantable) cardiac defibrillator

== ENCOUNTER 2022-10-17 21:11 | Inpatient (IN) ==
[2022-10-17] MEDS ORDERED: ONDANSETRON INJ 2 MG/ML 2 ML VIAL IV STA (21:24)
[2022-10-17] MEDS ORDERED: SODIUM CHLORIDE 0.9% 1000ML 1,000 ML IV SCH (21:30)
[2022-10-17] MEDS ORDERED: FAMOTIDINE 20MG IV PUSH 20 MG/5 ML SYR IV STA (21:39)
[2022-10-17] MEDS ORDERED: PANTOprazole 80 MG in DEXTROSE 5% 100 ML IV STA (21:39)
[2022-10-17 22:12] LABS: iSTAT Creatinine 3.2 mg/dl (0.6-1.3); iSTAT Hemoglobin 20.7 g/dl (14.0-18.0); iSTAT Ionized Calcium 1.18 mmol/l (1.12-1.32); iSTAT Potassium 6.5 mmol/L (3.3-5.0)
[2022-10-17] MEDS ORDERED: PIPERACILLIN/TAZOBACTAM 4.5 GM/120 ML BAG IV ONE (22:14)
--- NOTE | 2022-10-17 22:14 | Emergency Department Note ---
History of Present Illness General Chief complaint: Vomiting Stated complaint: VOMITING,CANT WALK,WEAKNESS Time Seen by Provider: 10/17/22 21:24 History of Present Illness This 82-year-old gentleman on Coumadin for history of A-fib and digoxin who presents the ER for nausea vomiting diarrhea and concerns for GI bleed. He just finished antibiotics. [facility] 3 8. Patient denies chest pain, dyspnea, headache, fever, chills, flulike illness. He has a history of cirrhosis and has had a TIPS procedure. Home Medications Medication Instructions Recorded Confirmed Type rifaximin 550 mg tablet (Xifaxan) 550 mg PO BID 02/07/19 10/17/22 History cholecalciferol (vitamin D3) 25 1,000 unit PO QAM 04/09/19 10/17/22 History mcg (1,000 unit) chewable tablet (Vitamin D3) lactulose 10 gram/15 mL oral 10 g PO TID 04/09/19 10/17/22 History solution ondansetron 4 mg disintegrating 4 mg PO BID PRN Nausea And Vomiting 04/09/19 10/17/22 History tablet warfarin 2 mg tablet 3 mg PO QPM 05/01/19 10/17/22 History lisinopril 2.5 mg tablet 2.5 mg PO QAM #90 tabs 05/21/20 10/17/22 Rx carvedilol 25 mg tablet 12.5 mg PO BID #90 tabs 11/13/21 10/17/22 Rx digoxin 125 mcg (0.125 mg) tablet 125 mcg PO PM #90 tabs 01/20/22 10/17/22 Rx acetaminophen 325 mg tablet 650 mg PO Q4H PRN PAIN/FEVER 10/17/22 10/17/22 History (Tylenol) ascorbic acid (vitamin C) 500 mg 500 mg PO DAILY 10/17/22 10/17/22 History tablet (Vitamin C) atorvastatin 20 mg tablet 20 mg PO HS 10/17/22 10/17/22 History finasteride 5 mg tablet 5 mg PO DAILY 10/17/22 10/17/22 History levothyroxine 100 mcg tablet 100 mcg PO DAILY 10/17/22 10/17/22 History mupirocin 2 % topical ointment 1 applic topical BID 10/17/22 10/17/22 History nystatin 100,000 unit/gram topical 1 applic topical BID PRN RASH AT 10/17/22 10/17/22 History powder OSTOMY SITE tamsulosin 0.4 mg capsule (Flomax) 0.4 mg PO DAILY 10/17/22 10/17/22 History Allergies Allergy/AdvReac Type Severity Reaction Status Date / Time zolpidem [From Ambien] AdvReac Severe SLEEP Verified 10/17/22 22:15 WALKING, CONFUSION, DISORIENTATION Past Med/Surg History Medical History Atrial fibrillation Permanent> NO CARDIOVERSIONS >ICD > COUMADIN Bleeding ulcer hx Chronic anticoagulation Chronic ITP (idiopathic thrombocytopenia) Hematology [facility] Cirrhosis Colostomy present Congestive heart failure Coronary artery disease Status post PCI to the LAD 2006, [place] 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 FIRST PLACED 2007 Ischemic cardiomyopathy Echocardiogram in 2015 with ejection fraction 45 percent Status post implantation of dual-chamber Medtronic ICD Obstructive sleep apnea oxygen concentrator/CPAP (3lpm) Stroke ~2017. difficulty understanding concepts. Surgical History H/O splenectomy History of bowel resection History of cardiac cath LAST ONE (APPROX) 2009 History of colectomy History of colonoscopy History of colostomy HAS HAD SINCE 2007 > RIGHT SIDE History of esophagogastroduodenoscopy (EGD) History of heart artery stent ~2009 x2 stents. [facility] History of tonsillectomy Family History Father Diabetes Grandmother Diabetes Grandfather Diabetes Other Hearing loss Heart disease Hypertension No family history of adverse response to anesthesia Stroke Social History Smoking Status: Former smoker Smoking End Date: 38 years ago; Second Hand Exposure: Yes; Do You Dip or Chew Tobacco: No; Hx Alcohol Use: Yes Alcohol type: beer Hx Substance Use: No Preferred Language: Bulgarian Communication Ability: Effective Bank Examiner Required: No Beliefs That Will Affect Care: None marital status: Current Living Situation: Spouse Other Information That Helps Us Care for You: No Feels Safe at Home: Yes Safety Concerns: Feels Safe At This Time Assistive Devices: Denture - Upper, Denture - Lower and Glasses Review of Systems A total of 10 systems reviewed and were otherwise negative Physical Exam Vital Signs Vital Signs - 24 hr 10/17/22 23:13 10/17/22 23:13 10/17/22 23:30 Pulse Rate Pulse Rate [Apical] 134 H 121 H Respiratory Rate 23 19 Blood Pressure [Right Arm] 100/68 109/69 Blood Pressure Mean [Right Arm] 78 82 Pulse Oximetry 93 93 91 Oxygen Delivery Method Room Air Room Air 10/17/22 23:36 10/17/22 23:45 10/18/22 00:01 Pulse Rate Pulse Rate [Apical] 137 H 120 H Respiratory Rate 16 16 Blood Pressure [Right Arm] 109/69 104/62 111/61 Blood Pressure Mean [Right Arm] 82 76 77 Pulse Oximetry 93 92 Oxygen Delivery Method Room Air Room Air 10/18/22 00:19 10/18/22 00:47 10/17/22 22:13 Pulse Rate 132 H Pulse Rate [Apical] 115 H 105 H Respiratory Rate 19 16 Blood Pressure [Right Arm] 98/74 L 116/69 Blood Pressure Mean [Right Arm] 82 84 Pulse Oximetry 96 94 Oxygen Delivery Method Room Air 10/18/22 01:15 Pulse Rate Pulse Rate [Apical] 120 H Respiratory Rate 19 Blood Pressure [Right Arm] 122/84 Blood Pressure Mean [Right Arm] 96 Pulse Oximetry 93 Oxygen Delivery Method Room Air VITALS: Vitals are noted on the nurse's note and reviewed by myself. Vital signs hypotensive tachycardic. GENERAL: Pale ill-appearing male with black stool coming out of his ostomy bag, in no acute distress, nondiaphoretic, well-developed well-nourished. SKIN: The skin was without rashes, erythema, edema, or bruising. There is no tenting of the skin. Capillary reflex less than 2 seconds. HEAD: Normocephalic atraumatic. EARS: External auditory canals clear, tympanic membranes pearly [place] without erythema or effusion bilaterally. EYES: Pupils equal round and reactive to light and accommodation. Conjunctivae without injection, sclerae without icterus. Extraocular movements intact. NOSE: Patent, turbinates without inflammation or discharge. No sinus tendernes s. MOUTH: Mucous membranes dry. Pharynx without erythema or exudate. Uvula midline. Airway patent. Tongue does not deviate. NECK: Supple without nuchal rigidity. No lymphadenopathy. No thyromegaly. Cervical spine is nontender. No JVD. HEART: Tachycardic irregularly irregular LUNGS: Clear to auscultation bilaterally without wheezes, rales or rhonchi. No retractions or accessory muscle use. ABDOMEN: Positive bowel sounds x 4. Normal tympanic percussion. Soft, tender mid abdomen, ostomy bag present with black stool coming out, guaiac positive, without masses or organomegaly. Forte sign negative. No guarding or rebound tenderness. No CVA tenderness MUSCULOSKELETAL: No muscle atrophy, erythema, or edema noted. NEURO: Patient was alert and oriented to person place and time. Normal sensation to light and sharp touch. No focal neurological deficits. Course Administered Medications Atorvastatin Calcium (Atorvastatin 20 Mg Tab) 20 mg PO HS SUSIE Stop: 11/17/22 20:59 Last Admin: 10/18/22 20:15 Dose: 20 mg Documented By: MUSHTAQ Brimonidine Tartrate (Brimonidine Tartrate 0.2% 5ml) 1 drops OP BID SUSIE Stop: 11/17/22 20:59 Last Admin: 10/18/22 20:16 Dose: 1 drops Documented By: MUSHTAQ Carvedilol (Carvedilol 12.5 Mg Tab) 12.5 mg PO BID SUSIE Stop: 11/17/22 08:59 Last Admin: 10/18/22 20:15 Dose: 12.5 mg Documented By: Admin: 10/18/22 08:43 Dose: 12.5 mg Documented By: LUCAS Digoxin (Digoxin 0.125 Mg Tab) 0.125 mg PO PM SUSIE Stop: 11/17/22 20:59 Last Admin: 10/18/22 20:16 Dose: 0.125 mg Documented By: MUSHTAQ Finasteride (Finasteride 5 Mg Tab) 5 mg PO DAILY SUSIE Stop: 11/17/22 08:59 Last Admin: 10/18/22 08:43 Dose: 5 mg Documented By: LUCAS Piperacillin Sod/Tazobactam (Sod 4.5 gm/ Dextrose) 120 mls @ 30 mls/hr IV Q8H [facility]; Protocol Stop: 10/28/22 12:59 Last Admin: 10/18/22 20:24 Dose: 30 mls/hr Documented By: Infusion: 10/18/22 16:50 Dose: 0 mls/hr Documented By: Admin: 10/18/22 12:44 Dose: 30 mls/hr Documented By: LUCAS Insulin Aspart (Insulin Aspart Per Unit Charge) 0 units SC ACHS [facility] Stop: 11/17/22 11:29 Last Admin: 10/18/22 20:13 Dose: Not Given Documented By: Admin: 10/18/22 17:01 Dose: Not Given Documented By: Admin: 10/18/22 12:06 Dose: 1 units Documented By: LUCAS Co-signed By: SARY Insulin Glargine (Lantus Per Unit Charge) 7 units SQ BID [facility] Stop: 11/17/22 08:59 Last Admin: 10/18/22 20:14 Dose: Not Given Documented By: Admin: 10/18/22 08:42 Dose: 7 units Documented By: LUCAS Co-signed By: CORINA Lactulose (Lactulose Syrup 20 Gm/30 Ml Udc) 10 gm PO TID [facility] Stop: 11/17/22 08:59 Last Admin: 10/18/22 20:17 Dose: 10 gm Documented By: Admin: 10/18/22 14:10 Dose: 10 gm Documented By: Admin: 10/18/22 08:44 Dose: 10 gm Documented By: LUCAS Levothyroxine Sodium (Levothyroxine Sodium 100 Mcg Tablet) 100 mcg PO DAILYBB [facility] Stop: 11/17/22 06:29 Last Admin: 10/18/22 05:15 Dose: 100 mcg Documented By: MUSHTAQ Ondansetron HCl (Ondansetron Inj 2 Mg/Ml 2 Ml Vial) 4 mg IV Q6H PRN PRN Reason: Nausea And Vomiting Stop: 11/17/22 02:32 Last Admin: 10/18/22 19:26 Dose: 4 mg Documented By: MUSHTAQ Rifaximin (Rifaximin 550 Mg Tablet) 550 mg PO BID [facility] Stop: 11/17/22 08:59 Last Admin: 10/18/22 20:16 Dose: 550 mg Documented By: Admin: 10/18/22 08:43 Dose: 550 mg Documented By: LUCAS Tamsulosin HCl (Tamsulosin Hcl 0.4 Mg Cap) 0.4 mg PO DAILY SUSIE Stop: 11/17/22 08:59 Last Admin: 10/18/22 08:43 Dose: 0.4 mg Documented By: LUCAS Discontinued Medications Sodium Chloride (Nss 1000ml) 1,000 mls @ 999 mls/hr IV .Q1H1M SUSIE Stop: 10/17/22 22:30 Last Infusion: 10/17/22 22:51 Dose: 0 mls/hr Documented By: Admin: 10/17/22 21:44 Dose: 999 mls/hr Documented By: AB Pantoprazole Sodium 80 mg/ (Dextrose) 120 mls @ 480 mls/hr IV ONE STA Stop: 10/17/22 21:53 Last Infusion: 10/17/22 22:14 Dose: 0 mls/hr Documented By: Admin: 10/17/22 21:59 Dose: 480 mls/hr Documented By: Famotidine (Pepcid 20mg Iv Push) 20 mg in 5 mls @ 2.5 mls/min IV NOW STA Stop: 10/17/22 21:40 Last Admin: 10/17/22 21:44 Dose: 2.5 mls/min Documented By: Piperacillin Sod/Tazobactam Sod (Zosyn) 4.5 gm in 120 mls @ 240 mls/hr IV NOW ONE Stop: 10/17/22 22:43 Last Infusion: 10/17/22 23:14 Dose: 0 mls/hr Documented By: Admin: 10/17/22 22:32 Dose: 240 mls/hr Documented By: LISBETH Calcium Gluconate () 1,000 mg in 60 mls @ 240 mls/hr IV NOW STA Stop: 10/17/22 22:42 Last Infusion: 10/17/22 23:14 Dose: 0 mls/hr Documented By: Admin: 10/17/22 22:57 Dose: 240 mls/hr Documented By: LISBETH Sodium Chloride (Nss 1000ml) 1,000 mls @ 999 mls/hr IV .Q1H1M ONE Stop: 10/18/22 00:34 Last Infusion: 10/18/22 00:32 Dose: 0 mls/hr Documented By: Admin: 10/17/22 23:36 Dose: 999 mls/hr Documented By: KANDI Sodium Chloride (Nss) 500 mls @ 999 mls/hr IV .Q31M ONE Stop: 10/18/22 01:04 Last Infusion: 10/18/22 01:13 Dose: 0 mls/hr Documented By: Admin: 10/18/22 00:47 Dose: 999 mls/hr Documented By: KANDI Phytonadione 10 mg/ Dextrose 51 mls @ 102 mls/hr IV ONE ONE Stop: 10/18/22 02:19 Last Infusion: 10/18/22 03:00 Dose: 0 mls/hr Documented By: Admin: 10/18/22 02:10 Dose: 102 mls/hr Documented By: KANDI Piperacillin Sod/Tazobactam (Sod 4.5 gm/ Dextrose) 120 mls @ 30 mls/hr IV Q12H [facility]; Protocol Stop: 10/28/22 05:59 Last Infusion: 10/18/22 09:17 Dose: 0 mls/hr Documented By: Admin: 10/18/22 05:13 Dose: 30 mls/hr Documented By: MUSHTAQ Sodium Chloride (Nss 1000ml) 1,000 mls @ 125 mls/hr IV .Q8H [facility] Stop: 10/18/22 10:32 Last Infusion: 10/18/22 10:18 Dose: 0 mls/hr Documented By: Admin: 10/18/22 02:33 Dose: 125 mls/hr Documented By: MUSHTAQ Pantoprazole Sodium 40 mg/ (Syringe) 10 mls @ 5 mls/min IV DAILY@1100 [facility] Stop: 11/17/22 10:59 Last Admin: 10/18/22 12:06 Dose: 5 mls/min Documented By: LUCAS Insulin Aspart (Insulin Aspart Per Unit Charge) 0 units SC Q6 [facility] Stop: 11/17/22 06:44 Last Admin: 10/18/22 08:02 Dose: Not Given Documented By: LUCAS Lisinopril (Lisinopril 2.5 Mg Tab) 2.5 mg PO QAM [facility] Stop: 11/17/22 08:59 Last Admin: 10/18/22 08:43 Dose: 2.5 mg Documented By: LUCAS Menthol (Cough Drop (Sugar Free) Eh 24 Eh/1 Box) Confirm Administered Dose 24 eh BUCCAL .STK-MED ONE Stop: 10/18/22 17:33 Last Admin: 10/18/22 17:35 Dose: 24 eh Documented By: LUCAS Ondansetron HCl (Ondansetron Inj 2 Mg/Ml 2 Ml Vial) 4 mg IV NOW STA Stop: 10/17/22 21:25 Last Admin: 10/17/22 21:44 Dose: 4 mg Documented By: Critical Care Time Critical Care Time: Yes Total Critical Care Time: 35 I have personally spent 35 minutes of critical care time in the direct management of this patient. This includes bedside care, interpretation of diagnostic studies, and testing, discussion with consultants, patient, and family members, and other required patient management activities. This 35 minutes is in excess of all separately billable procedures. Medical Decision Making Medical Records Attestation: I reviewed the patient's medical records. Home Medications Current Medication List: was personally reviewed by me Laboratory Data Attestation: I reviewed the patient's lab results. 10/17/22 19:40 10/17/22 19:40 Lab Results 10/17/22 10/17/22 10/17/22 Range/Units 00:24 19:40 19:40 WBC 19.32 H (4.8-10.8) K/ul RBC 5.61 (4.70-6.10) M/uL Hgb 18.9 H (14.0-18.0) g/dl POC Hgb (14.0-18.0) g/dl Hct 55.2 H (42.0-52.0) % POC Hct (42-52) % MCV 98.4 (80.0-100.0) fL MCH 33.7 (25.0-34.0) pg MCHC 34.2 (32.0-36.0) g/dL RDW Std Deviation 61.1 H (36.4-46.3) fL RDW Coeff of Zhane 17.2 H (11.5-14.5) % Plt Count 94 L (130-400) K/uL MPV 13.0 H (9.4-12.4) fL Immature Gran % (Auto) 0.6 % Neut % (Auto) 85.9 % Lymph % (Auto) 8.7 % [place] % (Auto) 4.1 % Eos % (Auto) 0.1 % Baso % (Auto) 0.6 % Neut # (Auto) 16.60 H (1.40-6.50) K/uL Lymph # (Auto) 1.69 (1.2-3.4) K/uL [place] # (Auto) 0.79 H (0.11-0.59) K/uL Eos # (Auto) 0.01 (0-0.50) K/uL Baso # (Auto) 0.12 (0-0.2) K/uL Immature Gran # (Auto) 0.11 (0.01-0.20) K/uL PT Cancelled INR Cancelled APTT Cancelled PTT Ratio Cancelled POC Sodium (135-144) mmol/L Sodium (136-145) mmol/L POC Potassium (3.3-5.0) mmol/L Potassium (3.5-5.1) mmol/L POC Chloride (101-112) mmol/L Chloride (98-107) mmol/L Carbon Dioxide (21-32) mmol/L POC Total CO2 (24-31) mmol/L Anion Gap (3-11) POC Anion Gap (16-25) mmol/L POC BUN (7-18) mg/dl BUN (6-23) mg/dl Creatinine (0.6-1.4) mg/dl POC Creatinine (0.6-1.3) mg/dl Est Cr Clr Drug Dosing ml/min Est GFR ( Amer) ml/min Est GFR (Non-Af Amer) ml/min BUN/Creatinine Ratio (10-20) Glucose (70-99(Fasting)) mg/dl POC Glucose (70-99) mg/dl POC Glucose (other) (70-99) mg/dl Lactate 3.6 H* (0.4-2.0) mmol/L Calcium (8.6-10.3) mg/dl POC Ioniz Calcium Flaquito (1.12-1.32) mmol/l Magnesium (1.7-2.4) mg/dl Total Bilirubin (0.2-1.0) mg/dl AST (13-39) U/L ALT (7-52) U/L Alkaline Phosphatase (34-104) U/L Troponin I High Sens (0-20) pg/ml Total Protein (6.0-8.3) gm/dl Albumin (3.4-5.0) gm/dl Globulin (2.5-4.0) gm/dl Albumin/Globulin Ratio (0.9-2) TSH (0.300-4.500) uIu/ml POC Stool Occult Blood (Negative) Stl C. diff Tox B Gene (Neg) Digoxin (0.8-2.0) ng/ml SARS-CoV-2, RNA, NAAT (NEGATIVE) Blood Type Antibody Screen 10/17/22 10/17/22 10/17/22 Range/Units 19:40 19:40 19:40 WBC (4.8-10.8) K/ul RBC (4.70-6.10) M/uL Hgb (14.0-18.0) g/dl POC Hgb (14.0-18.0) g/dl Hct (42.0-52.0) % POC Hct (42-52) % MCV (80.0-100.0) fL MCH (25.0-34.0) pg MCHC (32.0-36.0) g/dL RDW Std Deviation (36.4-46.3) fL RDW Coeff of Zhane (11.5-14.5) % Plt Count (130-400) K/uL MPV (9.4-12.4) fL Immature Gran % (Auto) % Neut % (Auto) % Lymph % (Auto) % [place] % (Auto) % Eos % (Auto) % Baso % (Auto) % Neut # (Auto) (1.40-6.50) K/uL Lymph # (Auto) (1.2-3.4) K/uL [place] # (Auto) (0.11-0.59) K/uL Eos # (Auto) (0-0.50) K/uL Baso # (Auto) (0-0.2) K/uL Immature Gran # (Auto) (0.01-0.20) K/uL PT INR APTT PTT Ratio POC Sodium (135-144) mmol/L Sodium 130 L (136-145) mmol/L POC Potassium (3.3-5.0) mmol/L Potassium 5.9 H (3.5-5.1) mmol/L POC Chloride (101-112) mmol/L Chloride 95 L (98-107) mmol/L Carbon Dioxide 17 L (21-32) mmol/L POC Total CO2 (24-31) mmol/L Anion Gap 18 H (3-11) POC Anion Gap (16-25) mmol/L POC BUN (7-18) mg/dl BUN 38 H (6-23) mg/dl Creatinine 2.95 H (0.6-1.4) mg/dl POC Creatinine (0.6-1.3) mg/dl Est Cr Clr Drug Dosing 19.3 ml/min Est GFR ( Amer) 21.9 ml/min Est GFR (Non-Af Amer) 18.9 ml/min BUN/Creatinine Ratio 12.9 (10-20) Glucose 186 H (70-99(Fasting)) mg/dl POC Glucose (70-99) mg/dl POC Glucose (other) (70-99) mg/dl Lactate 5.6 H* (0.4-2.0) mmol/L Calcium 11.0 H (8.6-10.3) mg/dl POC Ioniz Calcium Flaquito (1.12-1.32) mmol/l Magnesium 2.1 (1.7-2.4) mg/dl Total Bilirubin 1.4 H (0.2-1.0) mg/dl AST 62 H (13-39) U/L ALT 33 (7-52) U/L Alkaline Phosphatase 105 H (34-104) U/L Troponin I High Sens 11.8 (0-20) pg/ml Total Protein 9.4 H (6.0-8.3) gm/dl Albumin 4.4 (3.4-5.0) gm/dl Globulin 5.0 H (2.5-4.0) gm/dl Albumin/Globulin Ratio 0.9 (0.9-2) TSH 1.643 (0.300-4.500) uIu/ml POC Stool Occult Blood (Negative) Stl C. diff Tox B Gene (Neg) Digoxin (0.8-2.0) ng/ml SARS-CoV-2, RNA, NAAT (NEGATIVE) Blood Type Antibody Screen 07/12/0210/17/22 10/17/22 Range/Units 19:40 21:32 21:39 WBC (4.8-10.8) K/ul RBC (4.70-6.10) M/uL Hgb (14.0-18.0) g/dl POC Hgb (14.0-18.0) g/dl Hct (42.0-52.0) % POC Hct (42-52) % MCV (80.0-100.0) fL MCH (25.0-34.0) pg MCHC (32.0-36.0) g/dL RDW Std Deviation (36.4-46.3) fL RDW Coeff of Zhane (11.5-14.5) % Plt Count (130-400) K/uL MPV (9.4-12.4) fL Immature Gran % (Auto) % Neut % (Auto) % Lymph % (Auto) % [place] % (Auto) % Eos % (Auto) % Baso % (Auto) % Neut # (Auto) (1.40-6.50) K/uL Lymph # (Auto) (1.2-3.4) K/uL [place] # (Auto) (0.11-0.59) K/uL Eos # (Auto) (0-0.50) K/uL Baso # (Auto) (0-0.2) K/uL Immature Gran # (Auto) (0.01-0.20) K/uL PT INR APTT PTT Ratio POC Sodium (135-144) mmol/L Sodium (136-145) mmol/L POC Potassium (3.3-5.0) mmol/L Potassium (3.5-5.1) mmol/L POC Chloride (101-112) mmol/L Chloride (98-107) mmol/L Carbon Dioxide (21-32) mmol/L POC Total CO2 (24-31) mmol/L Anion Gap (3-11) POC Anion Gap (16-25) mmol/L POC BUN (7-18) mg/dl BUN (6-23) mg/dl Creatinine (0.6-1.4) mg/dl POC Creatinine (0.6-1.3) mg/dl Est Cr Clr Drug Dosing ml/min Est GFR ( Amer) ml/min Est GFR (Non-Af Amer) ml/min BUN/Creatinine Ratio (10-20) Glucose (70-99(Fasting)) mg/dl POC Glucose 183 H (70-99) mg/dl POC Glucose (other) (70-99) mg/dl Lactate (0.4-2.0) mmol/L Calcium (8.6-10.3) mg/dl POC Ioniz Calcium Flaquito (1.12-1.32) mmol/l Magnesium (1.7-2.4) mg/dl Total Bilirubin (0.2-1.0) mg/dl AST (13-39) U/L ALT (7-52) U/L Alkaline Phosphatase (34-104) U/L Troponin I High Sens (0-20) pg/ml Total Protein (6.0-8.3) gm/dl Albumin (3.4-5.0) gm/dl Globulin (2.5-4.0) gm/dl Albumin/Globulin Ratio (0.9-2) TSH (0.300-4.500) uIu/ml POC Stool Occult Blood Positive A (Negative) Stl C. diff Tox B Gene (Neg) Digoxin 0.5 L (0.8-2.0) ng/ml SARS-CoV-2, RNA, NAAT (NEGATIVE) Blood Type Antibody Screen 10/17/22 10/17/22 10/17/22 Range/Units 21:54 21:54 22:00 WBC (4.8-10.8) K/ul RBC (4.70-6.10) M/uL Hgb (14.0-18.0) g/dl POC Hgb 20.7 H* 20.4 H* (14.0-18.0) g/dl Hct (42.0-52.0) % POC Hct 61 H* 60 H (42-52) % MCV (80.0-100.0) fL MCH (25.0-34.0) pg MCHC (32.0-36.0) g/dL RDW Std Deviation (36.4-46.3) fL RDW Coeff of Zhane (11.5-14.5) % Plt Count (130-400) K/uL MPV (9.4-12.4) fL Immature Gran % (Auto) % Neut % (Auto) % Lymph % (Auto) % [place] % (Auto) % Eos % (Auto) % Baso % (Auto) % Neut # (Auto) (1.40-6.50) K/uL Lymph # (Auto) (1.2-3.4) K/uL [place] # (Auto) (0.11-0.59) K/uL Eos # (Auto) (0-0.50) K/uL Baso # (Auto) (0-0.2) K/uL Immature Gran # (Auto) (0.01-0.20) K/uL PT INR APTT PTT Ratio POC Sodium 131 L 131 L (135-144) mmol/L Sodium (136-145) mmol/L POC Potassium 6.5 H* 6.5 H* (3.3-5.0) mmol/L Potassium (3.5-5.1) mmol/L POC Chloride 102 101 (101-112) mmol/L Chloride (98-107) mmol/L Carbon Dioxide (21-32) mmol/L POC Total CO2 20 L 19 L (24-31) mmol/L Anion Gap (3-11) POC Anion Gap 17.0 18.0 (16-25) mmol/L POC BUN 48 H 51 H (7-18) mg/dl BUN (6-23) mg/dl Creatinine (0.6-1.4) mg/dl POC Creatinine 3.2 H 2.9 H (0.6-1.3) mg/dl Est Cr Clr Drug Dosing ml/min Est GFR ( Amer) ml/min Est GFR (Non-Af Amer) ml/min BUN/Creatinine Ratio (10-20) Glucose (70-99(Fasting)) mg/dl POC Glucose (70-99) mg/dl POC Glucose (other) 198 H 189 H (70-99) mg/dl Lactate (0.4-2.0) mmol/L Calcium (8.6-10.3) mg/dl POC Ioniz Calcium Flaquito 1.18 1.07 L (1.12-1.32) mmol/l Magnesium (1.7-2.4) mg/dl Total Bilirubin (0.2-1.0) mg/dl AST (13-39) U/L ALT (7-52) U/L Alkaline Phosphatase (34-104) U/L Troponin I High Sens (0-20) pg/ml Total Protein (6.0-8.3) gm/dl Albumin (3.4-5.0) gm/dl Globulin (2.5-4.0) gm/dl Albumin/Globulin Ratio (0.9-2) TSH (0.300-4.500) uIu/ml POC Stool Occult Blood (Negative) Stl C. diff Tox B Gene (Neg) Digoxin (0.8-2.0) ng/ml SARS-CoV-2, RNA, NAAT NEGATIVE (NEGATIVE) Blood Type Antibody Screen 10/17/22 10/17/22 10/17/22 Range/Units 22:42 22:42 22:42 WBC (4.8-10.8) K/ul RBC (4.70-6.10) M/uL Hgb (14.0-18.0) g/dl POC Hgb (14.0-18.0) g/dl Hct (42.0-52.0) % POC Hct (42-52) % MCV (80.0-100.0) fL MCH (25.0-34.0) pg MCHC (32.0-36.0) g/dL RDW Std Deviation (36.4-46.3) fL RDW Coeff of Zhane (11.5-14.5) % Plt Count (130-400) K/uL MPV (9.4-12.4) fL Immature Gran % (Auto) % Neut % (Auto) % Lymph % (Auto) % [place] % (Auto) % Eos % (Auto) % Baso % (Auto) % Neut # (Auto) (1.40-6.50) K/uL Lymph # (Auto) (1.2-3.4) K/uL [place] # (Auto) (0.11-0.59) K/uL Eos # (Auto) (0-0.50) K/uL Baso # (Auto) (0-0.2) K/uL Immature Gran # (Auto) (0.01-0.20) K/uL PT Cancelled INR Cancelled APTT Cancelled PTT Ratio Cancelled POC Sodium (135-144) mmol/L Sodium Cancelled (136-145) mmol/L POC Potassium (3.3-5.0) mmol/L Potassium Cancelled (3.5-5.1) mmol/L POC Chloride (101-112) mmol/L Chloride Cancelled (98-107) mmol/L Carbon Dioxide Cancelled (21-32) mmol/L POC Total CO2 (24-31) mmol/L Anion Gap Cancelled (3-11) POC Anion Gap (16-25) mmol/L POC BUN (7-18) mg/dl BUN Cancelled (6-23) mg/dl Creatinine Cancelled (0.6-1.4) mg/dl POC Creatinine (0.6-1.3) mg/dl Est Cr Clr Drug Dosing Cancelled ml/min Est GFR ( Amer) Cancelled ml/min Est GFR (Non-Af Amer) Cancelled ml/min BUN/Creatinine Ratio Cancelled (10-20) Glucose Cancelled (70-99(Fasting)) mg/dl POC Glucose (70-99) mg/dl POC Glucose (other) (70-99) mg/dl Lactate (0.4-2.0) mmol/L Calcium Cancelled (8.6-10.3) mg/dl POC Ioniz Calcium [place] (1.12-1.32) mmol/l Magnesium (1.7-2.4) mg/dl Total Bilirubin Cancelled (0.2-1.0) mg/dl AST Cancelled (13-39) U/L ALT Cancelled (7-52) U/L Alkaline Phosphatase Cancelled (34-104) U/L Troponin I High Sens Cancelled (0-20) pg/ml Total Protein Cancelled (6.0-8.3) gm/dl Albumin Cancelled (3.4-5.0) gm/dl Globulin Cancelled (2.5-4.0) gm/dl Albumin/Globulin Ratio Cancelled (0.9-2) TSH (0.300-4.500) uIu/ml POC Stool Occult Blood (Negative) Stl C. diff Tox B Gene (Neg) Digoxin (0.8-2.0) ng/ml SARS-CoV-2, RNA, NAAT (NEGATIVE) Blood Type Cancelled Antibody Screen Cancelled 10/17/22 10/17/22 10/17/22 Range/Units 23:21 23:22 Unknown WBC (4.8-10.8) K/ul RBC (4.70-6.10) M/uL Hgb (14.0-18.0) g/dl POC Hgb (14.0-18.0) g/dl Hct (42.0-52.0) % POC Hct (42-52) % MCV (80.0-100.0) fL MCH (25.0-34.0) pg MCHC (32.0-36.0) g/dL RDW Std Deviation (36.4-46.3) fL RDW Coeff of Zhane (11.5-14.5) % Plt Count (130-400) K/uL MPV (9.4-12.4) fL Immature Gran % (Auto) % Neut % (Auto) % Lymph % (Auto) % [place] % (Auto) % Eos % (Auto) % Baso % (Auto) % Neut # (Auto) (1.40-6.50) K/uL Lymph # (Auto) (1.2-3.4) K/uL [place] # (Auto) (0.11-0.59) K/uL Eos # (Auto) (0-0.50) K/uL Baso # (Auto) (0-0.2) K/uL Immature Gran # (Auto) (0.01-0.20) K/uL PT 71.4 H INR 7.4 H* APTT 41.9 H* PTT Ratio 1.5 POC Sodium (135-144) mmol/L Sodium (136-145) mmol/L POC Potassium (3.3-5.0) mmol/L Potassium (3.5-5.1) mmol/L POC Chloride (101-112) mmol/L Chloride (98-107) mmol/L Carbon Dioxide (21-32) mmol/L POC Total CO2 (24-31) mmol/L Anion Gap (3-11) POC Anion Gap (16-25) mmol/L POC BUN (7-18) mg/dl BUN (6-23) mg/dl Creatinine (0.6-1.4) mg/dl POC Creatinine (0.6-1.3) mg/dl Est Cr Clr Drug Dosing ml/min Est GFR ( Amer) ml/min Est GFR (Non-Af Amer) ml/min BUN/Creatinine Ratio (10-20) Glucose (70-99(Fasting)) mg/dl POC Glucose (70-99) mg/dl POC Glucose (other) (70-99) mg/dl Lactate (0.4-2.0) mmol/L Calcium (8.6-10.3) mg/dl POC Ioniz Calcium [place] (1.12-1.32) mmol/l Magnesium (1.7-2.4) mg/dl Total Bilirubin (0.2-1.0) mg/dl AST (13-39) U/L ALT (7-52) U/L Alkaline Phosphatase (34-104) U/L Troponin I High Sens (0-20) pg/ml Total Protein (6.0-8.3) gm/dl Albumin (3.4-5.0) gm/dl Globulin (2.5-4.0) gm/dl Albumin/Globulin Ratio (0.9-2) TSH (0.300-4.500) uIu/ml POC Stool Occult Blood (Negative) Stl C. diff Tox B Gene Negative Cdiff Gene (Neg) Digoxin (0.8-2.0) ng/ml SARS-CoV-2, RNA, NAAT (NEGATIVE) Blood Type B Negative Antibody Screen NEGATIVE Imaging Data Attestation: I personally reviewed and interpreted this imaging study as follows: Radiologist's Impression: Abdomen/Pelvis CT 10/17/22 22:12 Exam(s): CT ABDOMEN + PELVIS Without Contrast EXAM: CT Abdomen and Pelvis Without Intravenous Contrast CLINICAL HISTORY: Reason for exam: gi bleed, pain, hx TAA. TECHNIQUE: Axial computed tomography images of the abdomen and pelvis without intravenous contrast. CTDI is 19.22 mGy and DLP is 947.49 mGy-cm. Automated exposure control was utilized for the study. A dose lowering technique was utilized adhering to the principles of ALARA. COMPARISON: No relevant prior studies available. FINDINGS: Lung bases: Unremarkable. No mass. No consolidation. ABDOMEN: Liver: Hepatic cirrhosis. Indeterminate low-attenuation lesion RIGHT hepatic lobe, measures approximately 5.4 x 3.6 cm, limited in evaluation without contrast. This is new when compared to April 09, 2019. Consider hepatic MRI for further evaluation. TIPS stent. Gallbladder and bile ducts: Cholelithiasis. No ductal dilation. Pancreas: Unremarkable. No ductal dilation. Spleen: Splenectomy. Adrenals: Unremarkable. No mass. Kidneys and ureters: Unremarkable. No hydronephrosis or nephrolithiasis. Stomach and bowel: Colectomy. RIGHT lower quadrant ileostomy. Diverticulosis, without acute diverticulitis. No small bowel obstruction. No free air. PELVIS: Appendix: See above. Bladder: Unremarkable. No stones. Normal urinary bladder. Reproductive: Unremarkable as visualized. ABDOMEN and PELVIS: Intraperitoneal space: See above. Bones/joints: Degenerative changes of the spine. No acute fracture. No dislocation. Soft tissues: Unremarkable. Vasculature: Atherosclerotic changes of the aorta. No abdominal aortic aneurysm. Lymph nodes: Unremarkable. No enlarged lymph nodes. IMPRESSION: 1. No hydronephrosis or nephrolithiasis. 2. Hepatic cirrhosis. Indeterminate low-attenuation lesion RIGHT hepatic lobe, measures approximately 5.4 x 3.6 cm, limited in evaluation without contrast. This is new when compared to April 09, 2019. Consider hepatic MRI for further evaluation. TIPS stent. 3. Cholelithiasis. 4. Splenectomy. 5. Colectomy. RIGHT lower quadrant ileostomy. 6. Diverticulosis, without acute diverticulitis. No small bowel obstruction. No free air. Electronically signed by: Tyron Washington MD 10/17/22 23:12 PM MDM Narrative Prior records/ancillary studies reviewed. Triage Nursing notes reviewed. Additional history obtained from the family. The patient's history was concerning for possible gastrointestinal bleeding. Differential diagnosis: Etiologies such as diverticulosis, AVM, coagulopathy, colitis, inflammatory bowel disease, malignancy, Demetra-Ortiz tear, esophagitis, peptic ulcer disease, variceal bleed, gastritis, epistaxis, fissure, hemorrhoids, as well as others were entertained. Physical exam: As above. The patients vital signs were hypotensive and tachycardic. ER treatment provided: An order was placed for continuous cardiac monitoring. The monitor shows a rate of 60-200 with a A-fib rhythm per my interpretation. 2 lines, IV fluids, Pepcid, Protonix, Zosyn and patient was typed and crossmatched for 2 units Vitamin K was given for supratherapeutic INR and acute GI bleeding On reassessment the patient felt better. Diagnostics interpreted by me: ECG: Ordered for tachycardia EKG: Irregularly irregular with occasional PVC, ventricular rate 136. Impression A-fib with RVR with occasional PVC independently interpreted by myself The labs Independently Interpreted by myself revealed leukocytosis, elevated lactate, acute kidney injury Hyperkalemia Negative C. difficile. Positive Hemoccult. Imaging studies: Chest x-ray with no acute consolidation, pneumothorax or free air per my independent rotation Abdominal pelvis CT concerning for new liver mass without obstruction per my independent interpretation Consultation: A consultation was placed with the hospitalist. The case was discussed and diagnostics were reviewed. The patient was evaluated in the ER for further treatment. This appears to be consistent with acute GI bleed who is tachycardic and hypotensive with sepsis. 2 lines were immediately placed. I-STAT was ordered. Patient was consented to blood if warranted. He was started on PPI Pepcid and antibiotics. Patient was given vitamin K for supratherapeutic INR and GI bleed. He was reassessed multiple times. Patient and family state he is a full code. By the evaluation outlined above emergent etiologies such as esophageal perforation, epistaxis, inflammatory bowel disease, as well as others were deemed relatively unlikely. The pt informed about the findings as listed above. All questions were answered and pleased with the treatment. The chart was completed utilizing [employer] Speech voice recognition software. Grammatical errors, random word insertions, pronoun errors, and incomplete sentences are an occassional consequence of this system due to software limitations, ambient noise, and hardware issues. Any formal questions or concerns about the content, text, or information contained within the body of this dictation should be directly addressed to the physician assistant superintendent for curriculum for clarification. Attending Attestation: Dewey Lang MD independently saw and evaluated this patient and agree with history and physical is otherwise documented by the physician assistant superintendent for curriculum. See their note for full details. Patient fatigued with concerning ostomy output for GI bleed in afib on Coumadin. Recent Levaquin for UTI. Labs appear dehydrated with INOCENCIA, some hyperkalemia as well as elevated lactic acid and WBC count. Concern for sepsis. Received 2.5L NS (>30ml/kg) and Zosyn for broad spectrum abx. Hyper K improving after calcium and hydration. CT abd/pelvis without notable acute findings particularly obstruction or perforation/pneumatosis. Resuscitating here before rate control of afib given the underlying sepsis/dehydration. Admitted for further care. INR elevated in light of illness, decreased intake, Coumadin usage, and INOCENCIA -- Vit K ordered. Impression & Plan Acute GI bleeding, A-fib, Acute hyperkalemia, Acute kidney injury, Suprather apeutic INR Discharge Plan Visit Data Chief Complaint: Vomiting Stated Complaint: VOMITING,CANT WALK,WEAKNESS ED Provider: Rocky Lang ED Midlevel Provider: Kathie Wolfe Discharge Problem: Acute GI bleeding, A-fib, Acute hyperkalemia, Acute kidney injury, Supratherapeutic INR Patient Disposition: Admitted As Inpatient Condition: Fair Discharge Instructions Interventions: ED Discharge Assessment Last Done: 10/18/22 02:16
[2022-10-17 22:18] LABS: Basophils # (auto) 0.12 K/uL (0-0.2); Basophils % (auto) 0.6 %; Eosinophils # (auto) 0.01 K/uL (0-0.50); Eosinophils % (auto) 0.1 %; Hematocrit (blood only) 55.2 % (42.0-52.0); Hemoglobin 18.9 g/dl (14.0-18.0); Immature Granulocytes # (auto) 0.11 K/uL (0.01-0.20); Immature Granulocytes % (auto) 0.6 %; Lymphocytes # (auto) 1.69 K/uL (1.2-3.4); Lymphocytes % (auto) 8.7 %; Mean Corpuscular Hemoglobin 33.7 pg (25.0-34.0); Mean Corpuscular Hgb Conc 34.2 g/dL (32.0-36.0); Mean Corpuscular Volume 98.4 fL (80.0-100.0); Monocytes # (auto) 0.79 K/uL (0.11-0.59); Monocytes % (auto) 4.1 %; Neutrophils % (auto) 85.9 %; Platelet Count 94 K/uL (130-400); RDW Coefficient of Variation 17.2 % (11.5-14.5); RDW Standard Deviation 61.1 fL (36.4-46.3); Red Blood Count 5.61 M/uL (4.70-6.10); White Blood Count 19.32 K/ul (4.8-10.8)
[2022-10-17] MEDS ORDERED: CALCIUM GLUCONATE 1,000 MG/60 ML BAG IV STA (22:28)
[2022-10-17 22:47] LABS: Troponin I High Sensitivity 11.8 pg/ml (0-20)
--- NOTE | 2022-10-17 23:13 | CT Scan Report ---
Exam(s): CT ABDOMEN + PELVIS Without Contrast EXAM: CT Abdomen and Pelvis Without Intravenous Contrast CLINICAL HISTORY: Reason for exam: gi bleed, pain, hx TAA. TECHNIQUE: Axial computed tomography images of the abdomen and pelvis without intravenous contrast. CTDI is 19.22 mGy and DLP is 947.49 mGy-cm. Automated exposure control was utilized for the study. A dose lowering technique was utilized adhering to the principles of ALARA. COMPARISON: No relevant prior studies available. FINDINGS: Lung bases: Unremarkable. No mass. No consolidation. ABDOMEN: Liver: Hepatic cirrhosis. Indeterminate low-attenuation lesion RIGHT hepatic lobe, measures approximately 5.4 x 3.6 cm, limited in evaluation without contrast. This is new when compared to April 09, 2019. Consider hepatic MRI for further evaluation. TIPS stent. Gallbladder and bile ducts: Cholelithiasis. No ductal dilation. Pancreas: Unremarkable. No ductal dilation. Spleen: Splenectomy. Adrenals: Unremarkable. No mass. Kidneys and ureters: Unremarkable. No hydronephrosis or nephrolithiasis. Stomach and bowel: Colectomy. RIGHT lower quadrant ileostomy. Diverticulosis, without acute diverticulitis. No small bowel obstruction. No free air. PELVIS: Appendix: See above. Bladder: Unremarkable. No stones. Normal urinary bladder. Reproductive: Unremarkable as visualized. ABDOMEN and PELVIS: Intraperitoneal space: See above. Bones/joints: Degenerative changes of the spine. No acute fracture. No dislocation. Soft tissues: Unremarkable. Vasculature: Atherosclerotic changes of the aorta. No abdominal aortic aneurysm. Lymph nodes: Unremarkable. No enlarged lymph nodes. IMPRESSION: 1. No hydronephrosis or nephrolithiasis. 2. Hepatic cirrhosis. Indeterminate low-attenuation lesion RIGHT hepatic lobe, measures approximately 5.4 x 3.6 cm, limited in evaluation without contrast. This is new when compared to April 09, 2019. Consider hepatic MRI for further evaluation. TIPS stent. 3. Cholelithiasis. 4. Splenectomy. 5. Colectomy. RIGHT lower quadrant ileostomy. 6. Diverticulosis, without acute diverticulitis. No small bowel obstruction. No free air. Electronically signed by: Tyron Washington MD 10/17/22 23:12 PM
[2022-10-17] MEDS ORDERED: SODIUM CHLORIDE 0.9% 1000ML 1,000 ML IV ONE (23:34)
[2022-10-18 00:20] LABS: Albumin Globulin Ratio 0.9 (0.9-2); Albumin Level 4.4 gm/dl (3.4-5.0); BUN Creatinine Ratio 12.9 (10-20); Bilirubin,Total 1.4 mg/dl (0.2-1.0); Creatinine Clr Calc Pharmacy 19.3 ml/min; Est GFR (African American) 21.9 ml/min; Est GFR (Non-African American) 18.9 ml/min; Magnesium 2.1 mg/dl (1.7-2.4); Potassium 5.9 mmol/L (3.5-5.1); Total Protein 9.4 gm/dl (6.0-8.3)
[2022-10-18] MEDS ORDERED: SODIUM CHLORIDE 0.9% 500 ML IV ONE (00:34)
[2022-10-18 00:52] LABS: Partial Thromboplastin Ratio 1.5; Prothrombin Time 71.4 Seconds (9.0-12.0)
--- NOTE | 2022-10-18 01:02 | History & Physical Report ---
Date of Service October 18, 2022 Assessment & Plan (1) Nausea & vomiting: Plan: 82yo Male with PMH cirrhosis s/p tips procedure, afib on digoxin and warfarin, chronic ITP, diverticulitis with colostomy, hx. GI bleed, s/p splenectomy, ischemic cardiomyopathy, HLD, GERD, JADE, thoracic aortic aneurysm here for nausea vomitting ongoing 2 days. Sepsis with UTI -WBC 19.32 lactate 5.6 Hbg 20.4 -recent UTI uncertain if he was treated with levofloxacin+fluconazole or somet luci else, completed 5 day course -received zosynin ED -will continue zosyn empirically -received 2.5L NSS in ED -will continue NSS 125mls/hr -PRN zofran for nausea -blood culture pending -trend cbc Dehydration with INOCENCIA -noted electrolyte disturbance sodium 131 potassium 6.5 -anion gap 18 -creat 2.95 -ionized calcium 1.07 -received calcium gluconate 1g in ED -received 2.5L NSS in ED -will continue NSS 125mls/hr -trend cmp Lower GI bleed with Colostomy -CT A/P: No hydronephrosis or nephrolithiasis. Hepatic cirrhosis. Indeterminate low-attenuation lesion RIGHT hepatic lobe, measures approximately 5.4 x 3.6 cm, limited in evaluation without contrast. This is new when compared to April 09, 2019. Consider hepatic MRI for further evaluation. TIPS stent. Cholelithiasis. Splenectomy.. Colectomy. RIGHT lower quadrant ileostomy. Diverticulosis, without acute diverticulitis. No small bowel obstruction. No free air. -CXR per my read wnl -received protonix famotidine in ED -stool occult blood positive -consult placed to GI Afib on warfarin, digoxin -digoxin level 0.5 ng/ml, continue digoxin -INR 7.4, hold warfarin -continue carvedilol ITP -platelet 94 DM2 -ordered SSI HLD, ischemic cardiomyopathy, HTN -continue lisinopril -continue atorvastatin Hypothyroidism -continue levothyroxine Cirrhosis -continue lactulose -continue faximin BPH -continue finasteride -continue tamsulosin FENa: NPO Code Status: Full DVT PPX: warfarin on hold PT/OT: ordered Dispo: PCU/Lavinia Still D.O. PGY 3, FCM (2) Cirrhosis: (3) Thoracic ascending aortic aneurysm: (4) Bleeding from colostomy: (5) Atrial fibrillation: (6) Post-splenectomy: (7) Chronic ITP (idiopathic thrombocytopenia): (8) Cirrhosis: (9) Dyslipidemia: (10) GERD (gastroesophageal reflux disease): (11) Obstructive sleep apnea: History of Present Illness Chief Complaint: Vomitting Primary Care Provider: Melissa Garcia PA-C 82yo Male with PMH cirrhosis s/p tips procedure, afib on digoxin and warfarin, chronic ITP, diverticulitis with colostomy, hx. GI bleed, s/p splenectomy, ischemic cardiomyopathy, HLD, GERD, JADE, thoracic aortic aneurysm here for nausea vomitting ongoing 2 days. Patient states he regularly gets nausea at least once a week that resolves after 2 hours. 2 nights ago he developed nausea, however this time it was persistent and continued to get worse, he may have vomited his medications. Patient cannot recall any changes to his schedule recently, denies take out. States he was on a single antibiotic over the last 5 days with the last dose being yesterday. He describes occasional leg cramping. S tates his legs felt weaker yesterday, normally able to ambulate without assistance but needed to use a walker yesterday. Denies any fever SOB aspiration chest pain abd pain or pain with urination. At baseline he has difficulty initiating urine flow. When asked about his colostomy drainage, he states it has been normal, however he also states it is more reddish colored and watery, usually the color of oatmeal. Patient states his helps him organize his medications. Allergies Allergy/AdvReac Type Severity Reaction Status Date / Time zolpidem [From Ambien] AdvReac Severe SLEEP Verified 10/17/22 22:15 WALKING, CONFUSION, DISORIENTATION Home Medications Medication Instructions Recorded Confirmed Type rifaximin 550 mg tablet (Xifaxan) 550 mg PO BID 02/07/19 10/17/22 History cholecalciferol (vitamin D3) 25 1,000 unit PO QAM 04/09/19 10/17/22 History mcg (1,000 unit) chewable tablet (Vitamin D3) lactulose 10 gram/15 mL oral 10 g PO TID 04/09/19 10/17/22 History solution ondansetron 4 mg disintegrating 4 mg PO BID PRN Nausea And Vomiting 04/09/19 10/17/22 History tablet warfarin 2 mg tablet 3 mg PO QPM 05/01/19 10/17/22 History lisinopril 2.5 mg tablet 2.5 mg PO QAM #90 tabs 05/21/20 10/17/22 Rx carvedilol 25 mg tablet 12.5 mg PO BID #90 tabs 11/13/21 10/17/22 Rx digoxin 125 mcg (0.125 mg) tablet 125 mcg PO PM #90 tabs 01/20/22 10/17/22 Rx acetaminophen 325 mg tablet 650 mg PO Q4H PRN PAIN/FEVER 10/17/22 10/17/22 History (Tylenol) ascorbic acid (vitamin C) 500 mg 500 mg PO DAILY 10/17/22 10/17/22 History tablet (Vitamin C) atorvastatin 20 mg tablet 20 mg PO HS 10/17/22 10/17/22 History finasteride 5 mg tablet 5 mg PO DAILY 10/17/22 10/17/22 History levothyroxine 100 mcg tablet 100 mcg PO DAILY 10/17/22 10/17/22 History mupirocin 2 % topical ointment 1 applic topical BID 10/17/22 10/17/22 History nystatin 100,000 unit/gram topical 1 applic topical BID PRN RASH AT 10/17/22 10/17/22 History powder OSTOMY SITE tamsulosin 0.4 mg capsule (Flomax) 0.4 mg PO DAILY 10/17/22 10/17/22 History Past Med/Surg History Medical History Atrial fibrillation Permanent> NO CARDIOVERSIONS >ICD > COUMADIN Bleeding ulcer hx Chronic anticoagulation Chronic ITP (idiopathic thrombocytopenia) Hematology [facility] [place] Cirrhosis Colostomy present Congestive heart failure Coronary artery disease Status post PCI to the LAD 2006, [place] 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 FIRST PLACED 2007 Ischemic cardiomyopathy Echocardiogram in 2016 with ejection fraction 45 percent Status post implantation of dual-chamber Medtronic ICD Obstructive sleep apnea oxygen concentrator/CPAP (3lpm) Stroke ~2017. difficulty understanding concepts. Surgical History H/O splenectomy History of bowel resection History of cardiac cath LAST ONE (APPROX) 2009 History of colectomy History of colonoscopy History of colostomy HAS HAD SINCE 2007 > RIGHT SIDE History of esophagogastroduodenoscopy (EGD) History of heart artery stent ~2009 x2 stents. [facility] [place] History of tonsillectomy Family History Father Diabetes Grandmother Diabetes Grandfather Diabetes Other Hearing loss Heart disease Hypertension No family history of adverse response to anesthesia Stroke Social History Smoking Status: Former smoker Smoking End Date: 38 years ago; Second Hand Exposure: Yes; Do You Dip or Chew Tobacco: No; Hx Alcohol Use: Yes Alcohol type: beer Hx Substance Use: No Preferred Language: Azeri Communication Ability: Effective Biometry Teacher Required: No Beliefs That Will Affect Care: None marital status: Current Living Situation: Spouse Other Information That Helps Us Care for You: No Feels Safe at Home: Yes Safety Concerns: Feels Safe At This Time Assistive Devices: Denture - Upper, Denture - Lower and Glasses Physical Exam Constitutional: well developed, well nourished, cooperative and comfortable Eyes: PERRL, conjunctivae normal, anicteric sclerae ENMT: external ear and nose normal, oropharynx normal Respiratory: normal respiratory effort, lungs clear to auscultation Cardiovascular: Rate/Rhythm: + irregularly irregular Gastrointestinal (Abdomen): Inspection/Auscultation: abdomen normal to inspection Percussion/Palpation: abdomen soft; abdomen nontender colostomy bag present Skin: no rashes, warm and dry Results & Data Results & Data Vital Signs (Past 12 Hours) Vital Signs Temp Pulse Pulse Resp BP BP Pulse Ox 10/18/22 00:47 105 H 16 116/69 94 10/18/22 00:19 115 H 19 98/74 L 96 10/18/22 00:01 120 H 16 111/61 92 10/17/22 23:45 104/62 10/17/22 23:36 137 H 16 109/69 93 10/17/22 23:30 121 H 19 109/69 91 10/17/22 23:13 134 H 23 100/68 93 10/17/22 23:13 93 10/17/22 21:54 139 H 24 123/62 93 10/17/22 21:13 36.0 C L 115 H 18 92/60 L 98 O2 Del Method 10/18/22 00:47 Room Air 10/18/22 00:19 10/18/22 00:01 Room Air 10/17/22 23:45 10/17/22 23:36 Room Air 10/17/22 23:30 10/17/22 23:13 Room Air 10/17/22 23:13 Room Air 10/17/22 21:54 Room Air 10/17/22 21:13 Room Air Supervising Physician Co-Signing Physician Notes Attending addendum: I have physically seen this patient, have supervised the medical residents activities, and agree with the H&P unless as otherwise noted. Assessment and Plan: nausea/vomiting/diarrhea/GI bleed/colostomy Hemoglobin 18.9 and hematocrit 20.4, not a large volume bleed Zofran as needed Pantoprazole 40 mg IV every 12 hours Serial H&H's large volume of liquid stool in the ostomy bag that tests heme positive correct supratherapeutic INR Consult gastroenterology Sepsis due to UTI- Recent urinary tract infection may be partially treated Zosyn 4.5 g IV given in ED Follow urine culture and sensitivity Zosyn 4.5 g IV every 12 hours to adjust for renal dosing Status post 2.5 L normal saline in ED Continue NSS at 125 mils per hour Zofran 4 mg IV every 6 hours as needed for nausea and vomiting Cirrhosis status post TIPS procedure- Liver enzymes within range Follow serially Continue lactulose and rifaximin supratherapeutic INR- Hold warfarin INR 7.4 Give vitamin K 10 mg IV now and recheck in a.m. atrial fibrillation/Hypertension/ischemic cardiomyopathy- Hold warfarin Lisinopril with hold parameters remaining orders and notations as noted Resident Activity Tracking Resident Involvement: Resident Care Provided Care Provided: Adult Hospital Medicine
[2022-10-18 01:22] LABS: INR 7.4 (0.9-1.1)
[2022-10-18 01:23] LABS: Partial Thromboplastin Time 41.9 Seconds (21.0-31.0)
[2022-10-18] MEDS ORDERED: PHYTONADIONE 10 MG in DEXTROSE 5% 50 ML IV ONE (01:50)
[2022-10-18] MEDS ORDERED: SODIUM CHLORIDE 0.9% 1000ML 1,000 ML IV SCH (02:33)
[2022-10-18] MEDS ORDERED: ONDANSETRON INJ 2 MG/ML 2 ML VIAL IV PRN (02:33)
[2022-10-18 04:04] LABS: Appearance Urine Cloudy (Clear); Bilirubin Urine Negative (Negative); Blood Urine 3+ (Negative); Color Urine Dark Yellow; Epithelial Cell Urine Auto >30 /lpf (0-5); Glucose Urine UA Negative (Negative); Ketones Urine Trace (Negative); Leukocyte Esterase Urine Trace (Negative); Nitrite Urine Negative (Negative); Protein Urine 1+ (Negative); Specific Gravity Urine 1.021 (1.000-1.030); Urobilinogen Urine Negative (Negative)
[2022-10-18 04:35] LABS: Bacteria Urine Automated 1+ (Negative); Mucus Urine Present (None Prsent)
[2022-10-18 04:36] LABS: Amorphous Sediment Urine Present (None Prsent)
[2022-10-18] MEDS: LEVOTHYROXINE SODIUM 100 MCG TABLET PO SCH (05:15)
[2022-10-18] MEDS ORDERED: DEXTROSE 50% 50 ML SYRINGE IV PRN (05:54)
[2022-10-18] MEDS ORDERED: GLUCOSE 10 TAB/TUBE PO PRN (05:54)
[2022-10-18] MEDS ORDERED: GLUCOSE 40% GEL 15 GM TUBE PO PRN (05:54)
[2022-10-18] MEDS ORDERED: CARBOHYDRATES FOR HYPOGLYCEMIA PO PRN (05:54)
[2022-10-18] MEDS ORDERED: GLUCAGON FOR INJ 1 MG VIAL SQ PRN (05:54)
[2022-10-18] MEDS ORDERED: Nursing to Pharmacy Communication SCH ×3 (06:00→11:45)
[2022-10-18] MEDS ORDERED: PIPERACILLIN/TAZOBACTAM 4.5 GM in DEXTROSE 5% 100 ML IV SCH (06:00)
[2022-10-18] MEDS ORDERED: INSULIN ASPART PER UNIT CHARGE SC SCH (06:45)
--- NOTE | 2022-10-18 07:08 | Electrocardiogram Report ---
Test Reason : Blood Pressure : / mmHG Vent. Rate : 136 BPM Atrial Rate : 000 BPM P-R Int : 000 ms QRS Dur : 084 ms QT Int : 302 ms P-R-T Axes : 000 035 -02 degrees QTc Int : 454 ms Atrial fibrillation with rapid ventricular response with premature ventricular or aberrantly conducte d complexes Abnormal ECG When compared with ECG of 27-DEC-2019 09:54, Nonspecific T wave abnormality now evident in Inferior leads Confirmed by Bladimir Clark ([id number]) on 10/18/2022 7:07:52 AM Referred By: REFERRED SELF Confirmed By:Jeovany Clark
[2022-10-18 07:42] LABS: Albumin Globulin Ratio 0.9 (0.9-2); Albumin Level 3.1 gm/dl (3.4-5.0); BUN Creatinine Ratio 18.1 (10-20); Bilirubin,Total 1.5 mg/dl (0.2-1.0); Calcium 8.7 mg/dl (8.6-10.3); Creatinine Clr Calc Pharmacy 24.3 ml/min; Est GFR (Non-African American) 25.9 ml/min; Globulin 3.6 gm/dl (2.5-4.0); Potassium 4.9 mmol/L (3.5-5.1); Total Protein 6.7 gm/dl (6.0-8.3)
[2022-10-18 07:59] LABS: Hemoglobin 15.7 g/dl (14.0-18.0); Mean Corpuscular Hemoglobin 33.7 pg (25.0-34.0); Mean Corpuscular Hgb Conc 34.1 g/dL (32.0-36.0); Mean Corpuscular Volume 98.7 fL (80.0-100.0); Platelet Count 57 K/uL (130-400); RDW Coefficient of Variation 16.9 % (11.5-14.5); Red Blood Count 4.66 M/uL (4.70-6.10); White Blood Count 18.22 K/ul (4.8-10.8)
[2022-10-18 08:03] LABS: INR 3.1 (0.9-1.1); Partial Thromboplastin Ratio 1.3
--- NOTE | 2022-10-18 08:21 | XRay Report ---
XR chest 1V portable HISTORY: 82 years-old Male weakness acute weakness COMPARISON: 03/17/2022 TECHNIQUE: AP view of the chest FINDINGS: Left subclavian pacer/AICD. Cardiac silhouette is enlarged. Mild pulmonary emphysema. No pneumothorax , pleural effusion, airspace consolidation or pulmonary edema. Bones appear grossly intact. IMPRESSION: No acute process. ACT 112: Negative or not required by law. The above report was generated using voice recognition software. It may contain grammatical, syntax o r spelling errors. Electronically signed by: Ke Jay M.D. 10/18/2022 8:20 AM
[2022-10-18] MEDS: LANTUS PER UNIT CHARGE SQ SCH ×2 (08:42→20:14)
[2022-10-18] MEDS: carvediloL 12.5 MG TAB PO SCH ×2 (08:43→20:15)
[2022-10-18] MEDS: TAMSULOSIN HCL 0.4 MG CAP PO SCH (08:43)
[2022-10-18] MEDS: FINASTERIDE 5 MG TAB PO SCH (08:43)
[2022-10-18] MEDS: rifAXIMin 550 MG TABLET PO SCH ×2 (08:43→20:16)
[2022-10-18] MEDS: LACTULOSE SYRUP 20 GM/30 ML UDC PO SCH ×3 (08:44→20:17)
[2022-10-18] MEDS ORDERED: lisinopril 2.5 MG TAB PO SCH (09:00)
--- NOTE | 2022-10-18 09:10 | Gastrointestinal Consultation ---
Date of Consultation October 18, 2022 Assessment & Plan (1) Cirrhosis: (2) Nausea & vomiting: (3) GI (gastrointestinal bleed): Plan cirrhosis with stool occult positive: normal hgb at this time. MELD-Na is 30 but likely driven by high INR (3 today, was 7 plus on admission). regarding liver lesion, would [facility], and if nothing within last 3 months, would obtain MRI liver protocol to further evaluate. needs to follow up with hepatology as outpt. nausea/vomiting may be related to his UTI, on abx now recs: EGD and colonoscopy as an outpatient advance diet as tolerated supportive care MRI liver protocol if no liver imaging within last 3 months, [facility] continue rifaximin, lactulose, coreg, titrate lactulose to 2-3 soft bowel movements daily Thank you for allowing me to participate in the care ofthis patient History of Present Illness Attending Physician: Melissa Hernandez MD History of Present Illness 82 yo male with hx cirrhosis, GI bleed, TIPS, diverticulitis s/p colostomy, ICM, GERD, JADE here with n/v x 2 days. Notes he gets nausea weekly. No hematemesis, hematochezia, stool occult was positive here. Stools are loose through the colostomy but appears to be like regularly he says. CT showed an indeterminate liver lesion, patient notes he follows up with [facility]pt [facility] and gets [facility], says last image was within last 6 months. labs reviewed. Allergies Allergy/AdvReac Type Severity Reaction Status Date / Time zolpidem [From Ambien] AdvReac Severe SLEEP Verified 10/17/22 22:15 WALKING, CONFUSION, DISORIENTATION Home Medications Medication Instructions Recorded Confirmed Type rifaximin 550 mg tablet (Xifaxan) 550 mg PO BID 02/07/19 10/17/22 History cholecalciferol (vitamin D3) 25 1,000 unit PO QAM 04/09/19 10/17/22 History mcg (1,000 unit) chewable tablet (Vitamin D3) lactulose 10 gram/15 mL oral 10 g PO TID 04/09/19 10/17/22 History solution ondansetron 4 mg disintegrating 4 mg PO BID PRN Nausea And Vomiting 04/09/19 10/17/22 History tablet warfarin 2 mg tablet 3 mg PO QPM 05/01/19 10/17/22 History lisinopril 2.5 mg tablet 2.5 mg PO QAM #90 tabs 05/21/20 10/17/22 Rx carvedilol 25 mg tablet 12.5 mg PO BID #90 tabs 11/13/21 10/17/22 Rx digoxin 125 mcg (0.125 mg) tablet 125 mcg PO PM #90 tabs 01/20/22 10/17/22 Rx acetaminophen 325 mg tablet 650 mg PO Q4H PRN PAIN/FEVER 10/17/22 10/17/22 History (Tylenol) ascorbic acid (vitamin C) 500 mg 500 mg PO DAILY 10/17/22 10/17/22 History tablet (Vitamin C) atorvastatin 20 mg tablet 20 mg PO HS 10/17/22 10/17/22 History finasteride 5 mg tablet 5 mg PO DAILY 10/17/22 10/17/22 History levothyroxine 100 mcg tablet 100 mcg PO DAILY 10/17/22 10/17/22 History mupirocin 2 % topical ointment 1 applic topical BID 10/17/22 10/17/22 History nystatin 100,000 unit/gram topical 1 applic topical BID PRN RASH AT 10/17/22 10/17/22 History powder OSTOMY SITE tamsulosin 0.4 mg capsule (Flomax) 0.4 mg PO DAILY 10/17/22 10/17/22 History Patient History Medical History Atrial fibrillation Permanent> NO CARDIOVERSIONS >ICD > COUMADIN Bleeding ulcer hx Chronic anticoagulation Chronic ITP (idiopathic thrombocytopenia) Hematology [facility] Cirrhosis Colostomy present Congestive heart failure Coronary artery disease Status post PCI to the LAD 2006, [place] 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 FIRST PLACED 2007 Ischemic cardiomyopathy Echocardiogram in 2016 with ejection fraction 45 percent Status post implantation of dual-chamber Medtronic ICD Obstructive sleep apnea oxygen concentrator/CPAP (3lpm) Stroke ~2017. difficulty understanding concepts. Surgical History H/O splenectomy History of bowel resection History of cardiac cath LAST ONE (APPROX) 2009 History of colectomy History of colonoscopy History of colostomy HAS HAD SINCE 2007 > RIGHT SIDE History of esophagogastroduodenoscopy (EGD) History of heart artery stent ~2009 x2 stents. [facility] [place] History of tonsillectomy Family History Father Diabetes Grandmother Diabetes Grandfather Diabetes Other Hearing loss Heart disease Hypertension No family history of adverse response to anesthesia Stroke Social History Smoking Status: Former smoker Smoking End Date: 38 years ago; Second Hand Exposure: Yes; Do You Dip or Chew Tobacco: No; Hx Alcohol Use: Yes Alcohol type: beer Hx Substance Use: No Preferred Language: Faroese Communication Ability: Effective Gyn Required: No Beliefs That Will Affect Care: None marital status: Current Living Situation: Spouse Other Information That Helps Us Care for You: No Feels Safe at Home: Yes Safety Concerns: Feels Safe At This Time Assistive Devices: Denture - Upper, Denture - Lower and Glasses Review of Systems Constitutional: no fever, no chills and no weight loss Eyes: as per Subjective / HPI Ear, Nose, Mouth, Throat: as per Subjective / HPI Respiratory: no dyspnea and no dyspnea on exertion Cardiovascular: no chest pain and no palpitations Gastrointestinal: as per Subjective / HPI Musculoskeletal: no joint pain and no swelling Integumentary: no rash and no lesions Neurologic: no numbness and no paresthesia Psychiatric: no depression and no anxiety Endocrine: no fatigue Hematologic / Lymphatic: no easy bleeding and no easy bruising Physical Exam Constitutional: WD/WN, vitals as above Eyes: EOM intact bilaterally Neck: normal visual inspection Respiratory: normal respiratory effort, lungs clear to auscultation Cardiovascular: RRR, no murmur, no edema Gastrointestinal (Abdomen): Inspection/Auscultation: abdomen normal to inspection; abdomen not distended Percussion/Palpation: abdomen soft; abdomen nontender and no hepatosplenomegaly no asterixis Musculoskeletal: Head/Neck/Chest: normocephalic and head atraumatic Extremities: no cyanosis Skin: no rashes, warm and dry Neurologic: moves all extremities Psychiatric: A+Ox3, euthymic affect Results & Data Vital Signs (Past 12 Hours) Vital Signs Temp Pulse Pulse Pulse Resp BP BP 10/18/22 08:00 36.4 C L 94 H 16 107/68 10/18/22 02:30 110 H 10/18/22 02:30 10/18/22 02:33 10/18/22 02:42 36.6 C 102 H 16 10/18/22 01:55 100 H 16 10/18/22 01:15 120 H 19 10/17/22 22:13 132 H 10/18/22 00:47 105 H 16 10/18/22 00:19 115 H 19 10/18/22 00:01 120 H 16 10/17/22 23:45 10/17/22 23:36 137 H 16 10/17/22 23:30 121 H 19 10/17/22 23:13 134 H 23 10/17/22 23:13 10/17/22 21:54 139 H 24 10/17/22 21:13 36.0 C L 115 H 18 92/60 L BP Pulse Ox Pulse Ox O2 Del Method O2 Del Method O2 Flow Rate O2 Flow Rate 10/18/22 08:00 93 Room Air 10/18/22 02:30 10/18/22 02:30 Nasal Cannula 3 10/18/22 02:33 97 Nasal Cannula 3 10/18/22 02:42 112/67 97 Nasal Cannula 3 10/18/22 01:55 103/68 92 Room Air 10/18/22 01:15 122/84 93 Room Air 10/17/22 22:13 10/18/22 00:47 116/69 94 Room Air 10/18/22 00:19 98/74 L 96 10/18/22 00:01 111/61 92 Room Air 10/17/22 23:45 104/62 10/17/22 23:36 109/69 93 Room Air 10/17/22 23:30 109/69 91 10/17/22 23:13 100/68 93 Room Air 10/17/22 23:13 93 Room Air 10/17/22 21:54 123/62 93 Room Air 10/17/22 21:13 98 Room Air PG Care Time/CCT Total # of Minutes Spent Total Time Spent with Patient: Total time spent is greater than 50% in coordination of care (as documented) at patient's floor/unit and/or counseling patient: Coding Level of Care Code 07750 INT INP/OBS CARE 2/55MIN Diagnoses Cirrhosis K74.60 Nausea & vomiting R11.2 GI (gastrointestinal bleed) K92.2
[2022-10-18] MEDS ORDERED: PANTOprazole 40 MG in SYRINGE 0 ML IV SCH (11:00)
[2022-10-18] MEDS: INSULIN ASPART PER UNIT CHARGE SC SCH ×3 (12:06→20:13)
--- NOTE | 2022-10-18 12:40 | History & Physical Bridge Note ---
Date of Service October 18, 2022 History & Physical Bridge Note I have examined the patient, reviewed the History & Physical and in the interval since the performance of the History & Physical I have noted the following changes of clinical significance: Pt feeling much better, tolerating reg diet now. Has c/o sore throat from vomiting. His grandson had a GI bug this past week and was around the patient Discussed care with and daughter at bedside. He said his stool had been dark but now is green and liquid. No ab dpain No other concerns, wants to know how many more blood draws he'll b ehaving and if he can go home today. Vitals reviewed NAD, AAOx3 irreg irreg, no mgr CTAB no wcr Abd +BS soft NT, colostomy in place with green liquid and some solid green yellow stool, no blood Ext no edema Labs reviewed Doubt UTI. Likley N/V from gastroenteritis of viral source, now improved with INOCENCIA and hyperkalemia both improving Continue empiric Zosyn for now , follow BCxs, Ur cx but UA contaminated with epis dc IVFs start home glaucoma drops GI outpt scope liver mass is known and followed as uopt with Hepatology at [facility]
[2022-10-18] MEDS: PIPERACILLIN/TAZOBACTAM 4.5 GM in DEXTROSE 5% 100 ML IV SCH ×2 (12:44→20:24)
[2022-10-18] MEDS ORDERED: COUGH DROP (SUGAR FREE) LOZ 24 LOZ/1 BOX BUCCAL ONE (17:32)
--- NOTE | 2022-10-18 19:29 | Billing Data ---
Date of Service October 18, 2022 Coding Level of Care Code 95614 INT INP/OBS CARE
[2022-10-18] MEDS: ATORVASTATIN 20 MG TAB PO SCH (20:15)
[2022-10-18] MEDS: BRIMONIDINE TARTRATE 0.2% 5ML OP SCH (20:16)
[2022-10-18] MEDS: DIGOXIN 0.125 MG TAB PO SCH (20:16)
[2022-10-18] MEDS ORDERED: BRIMONIDINE TARTRATE 0.2% 5ML OP SCH (21:00)
[2022-10-19] MEDS: PIPERACILLIN/TAZOBACTAM 4.5 GM in DEXTROSE 5% 100 ML IV SCH ×3 (05:10→20:21)
[2022-10-19 06:22] LABS: Hematocrit (blood only) 53.4 % (42.0-52.0); Hemoglobin 17.9 g/dl (14.0-18.0); Mean Corpuscular Hemoglobin 33.3 pg (25.0-34.0); Mean Corpuscular Hgb Conc 33.5 g/dL (32.0-36.0); Mean Corpuscular Volume 99.3 fL (80.0-100.0); Mean Platelet Volume 13.7 fL (9.4-12.4); Platelet Count 57 K/uL (130-400); RDW Coefficient of Variation 17.1 % (11.5-14.5); Red Blood Count 5.38 M/uL (4.70-6.10); White Blood Count 11.57 K/ul (4.8-10.8)
[2022-10-19] MEDS: LEVOTHYROXINE SODIUM 100 MCG TABLET PO SCH (06:24)
[2022-10-19 06:39] LABS: Albumin Globulin Ratio 0.9 (0.9-2); Albumin Level 3.6 gm/dl (3.4-5.0); BUN Creatinine Ratio 23.4 (10-20); Bilirubin,Total 1.3 mg/dl (0.2-1.0); Calcium 9.4 mg/dl (8.6-10.3); Creatinine Clr Calc Pharmacy 22.2 ml/min; Est GFR (Non-African American) 23.3 ml/min; Globulin 4.1 gm/dl (2.5-4.0); Magnesium 2.2 mg/dl (1.7-2.4); Potassium 4.5 mmol/L (3.5-5.1); Total Protein 7.7 gm/dl (6.0-8.3)
[2022-10-19 06:43] LABS: INR 1.4 (0.9-1.1)
[2022-10-19] MEDS: BRIMONIDINE TARTRATE 0.2% 5ML OP SCH ×2 (07:57→20:27)
[2022-10-19] MEDS: TAMSULOSIN HCL 0.4 MG CAP PO SCH (07:57)
[2022-10-19] MEDS: carvediloL 12.5 MG TAB PO SCH ×2 (07:57→20:26)
[2022-10-19] MEDS: PANTOprazole 40 MG TAB PO SCH (07:58)
[2022-10-19] MEDS: FINASTERIDE 5 MG TAB PO SCH (07:58)
[2022-10-19] MEDS: rifAXIMin 550 MG TABLET PO SCH ×2 (07:58→20:25)
[2022-10-19] MEDS: LACTULOSE SYRUP 20 GM/30 ML UDC PO SCH ×3 (07:58→20:28)
[2022-10-19] MEDS: LANTUS PER UNIT CHARGE SQ SCH ×2 (08:02→20:29)
[2022-10-19] MEDS: INSULIN ASPART PER UNIT CHARGE SC SCH ×4 (08:09→20:28)
[2022-10-19] MEDS: LACTATED RINGER'S 1,000 ML IV SCH ×2 (10:50→20:24)
[2022-10-19 12:19] LABS: A calco-baum cmplx NotReported Not Detected (NotDetected); Bact fragilis Not Reported Not Detected (NotDetected); C auris Not Reported Not Detected (NotDetected); Calbicans Not Reported Not Detected (NotDetected); Candida glabrata Not Reported Not Detected (NotDetected); Candida krusei Not Reported Not Detected (NotDetected); Cneoformans/gatti Not Reported Not Detected (NotDetected); Cparapsilosis Not Reported Not Detected (NotDetected); Ctropicalis Not Reported Not Detected (NotDetected); E cloacae compx Not Reported Not Detected (NotDetected); Efaecalis Not Reported Not Detected (NotDetected); Efaecium Not Reported Not Detected (NotDetected); Enterobacterales Not Reported Not Detected (NotDetected); Escherichia coli Not Reported Not Detected (NotDetected); H influenzae Not Reported Not Detected (NotDetected); K aerogenes Not Reported Not Detected (NotDetected); Koxytoca Not Reported Not Detected (NotDetected); Kpneumoniae grp Not Reported Not Detected (NotDetected); Lmonocyt Not Reported Not Detected (NotDetected); N meningitidis Not Reported Not Detected (NotDetected); P aeruginosa Not Reported Not Detected (NotDetected); Proteus spp Not Reported Not Detected (NotDetected); Salmonella spp Not Reported Not Detected (NotDetected); Smarcescens Not Reported Not Detected (NotDetected); Staph lugdunensis Not Reported Not Detected (NotDetected); Staph spp. Not Reported Not Detected (NotDetected); Staphaureus Not Reported Not Detected (NotDetected); Staphepi Not Reported Not Detected (NotDetected); Stenmaltophilia Not Reported Not Detected (NotDetected); Strep agal(GrpB) Not Reported Not Detected (NotDetected); Strep pneum Not Reported Not Detected (NotDetected); Strep pyog (GrpA) Not Reported Not Detected (NotDetected); Strep spp Not Reported DETECTED (NotDetected)
[2022-10-19 12:35] LABS: Streptococcus spp DETECTED (NotDetected)
--- NOTE | 2022-10-19 14:55 | Infectious Disease Consult ---
Date of Consultation October 19, 2022 Assessment & Plan (1) Bacteremia: (2) Acute kidney injury: (3) Nausea & vomiting: (4) Cirrhosis: Plan 82 yo M with history of cirrhosis s/p TIPS procedure, afib on digoxin and warfarin, chronic ITP, diverticulitis with colostomy, GIB, s/p splenectomy, ischemic cardiomyopathy, JADE, thoracic aortic aneurysm who presented on 10/17 with N/V x 2 days. Pt reports that he regularly gets nausea at least once a week, which resolves after 2 hours. However 2 nights ago, he developed persistent and worsening nausea. Pt was reportedly prescribed two courses of antimicrobials recently. His outpatient pharmacy states that he was given levofloxacin 500 mg daily x 5 days on 09/28, then fluconazole 200 mg daily x 1 week on 10/08. He states that he needed a second course since the first one did not work. Symptoms of dysuria resolved with the antimicrobials. Pt denied fever, shortness of breath, abd pain, rash. On admission, pt reported his colostomy drainage has been more reddish/watery lately. However, on evaluation 10/19, pt reports his output has not changed. On presentation, pt was afebrile, HR 115, BP 92/60. Labs showed WBC 19.32, Hb 18.9, pt 94, Cr 2.95, lactate 3.6 --> 5.6. CXR with no acute process. CT A/P wo contrast showed no hydronephrosis or nephrolithiasis, cholelithiasis, diverticulosis without diverticulitis, and hepatic cirrhosis with indeterminate low-attenuation lesion R hepatic lobe measuring 5.4 x 3.6 cm, new from 2018. C diff neg. UA with 5-10 WBCs. Pt was started on Zosyn. BCx were collected which grew GPCs in chains in 1/4 bottles. UCx grew 3 types of organisms, all moderate counts. GI was consulted for stool occult positive. For the liver lesion, they [facility], and if nothing within last 3 months, to obtain MRI liver for further evaluation. Unclear source of GPC bacteremia at this time. States he has had no teeth for years, no recent dental procedures. Denies wounds on his skin. Denies having hardware/prosthetic devices in his body other than TIPS. WBC has downtrended to 11.57. Micro: 10/19 BCx x1: pending 10/18 UCx: 3 types of organisms 10/17 BCx x2: GPCs in chains in 1/ bottles Abx: Pip-tazo 10/17 - present Problems: #GPC bacteremia #Nausea/vomiting #Liver lesion 5.4 x 3.6 cm #Cirrhosis s/p TIPS Recommendations: -Follow-up 10/17 BCx for identification of GPC in chains (likely Strep vs Enterococcus) -Follow-up 10/19 BCx for clearance -Continue pip-tazo for now -Agree with further evaluation of liver lesion Will continue to follow. Please page [facility] Center with further questions. Consultation Information Consultation was provided via telemedicine using two-way real-time interactive telecommunication between the patient and the telemedicine provider. For the duration of the visit, the provider was performing the assessment from a different facility than the patient. This includesuse of bluetooth stethoscope forauscultationperformed by the telepresenter that the telemedicine provider can hear if described in the physical exam. [employer] Remote contact information: Please call [facility] . (Phone Number For Physician Use Only) After establishing a telemedicine visit, patient was: Patient was verified with two unique identifiers, Patient/authorized rep acknowledged consent and understanding and Gave permission to continue telehealth session Time Spent with Patient: Initial => 40 min History of Present Illness Reason for Consultation: Strep bacteremia Attending Physician: Melissa Hernandez MD History of Present Illness 82 yo M with history of cirrhosis s/p TIPS procedure, afib on digoxin and warfarin, chronic ITP, diverticulitis with colostomy, GIB, s/p splenectomy, ischemic cardiomyopathy, JADE, thoracic aortic aneurysm who presented on 10/17 with N/V x 2 days. Pt reports that he regularly gets nausea at least once a week, which resolves after 2 hours. However 2 nights ago, he developed persistent and worsening nausea. Pt was reportedly prescribed two courses of antimicrobials recently. His outpatient pharmacy states that he was given levofloxacin 500 mg daily x 5 days on 09/28, then fluconazole 200 mg daily x 1 week on 10/08. He states that he needed a second course since the first one did not work. Symptoms of dysuria resolved with the antimicrobials. Pt denied fever, shortness of breath, abd pain, rash. On admission, pt reported his colostomy drainage has been more reddish/watery lately. However, on evaluation 10/19, pt reports his output has not changed. On presentation, pt was afebrile, HR 115, BP 92/60. Labs showed WBC 19.32, Hb 18.9, pt 94, Cr 2.95, lactate 3.6 --> 5.6. CXR with no acute process. CT A/P wo contrast showed no hydronephrosis or nephrolithiasis, cholelithiasis, diverticulosis without diverticulitis, and hepatic cirrhosis with indeterminate low-attenuation lesion R hepatic lobe measuring 5.4 x 3.6 cm, new from 2019. C diff neg. UA with 5-10 WBCs. Pt was started on Zosyn. BCx were collected which grew GPCs in chains in 1/4 bottles. UCx grew 3 types of organisms, all moderate counts. GI was consulted for stool occult positive. For the liver lesion, they recommended [facility], and if nothing within last 3 months, to obtain MRI liver for further evaluation. Pt reports his N/V is still present. States he has had no teeth for years, no recent dental procedures. Denies wounds on his skin. Denies having hardware/prosthetic devices in his body other than TIPS. Allergies Allergy/AdvReac Type Severity Reaction Status Date / Time zolpidem [From Ambien] AdvReac Severe SLEEP Verified 10/17/22 22:15 WALKING, CONFUSION, DISORIENTATION Home Medications Medication Instructions Recorded Confirmed Type rifaximin 550 mg tablet (Xifaxan) 550 mg PO BID 02/07/19 10/17/22 History cholecalciferol (vitamin D3) 25 1,000 unit PO QAM 04/09/19 10/17/22 History mcg (1,000 unit) chewable tablet (Vitamin D3) lactulose 10 gram/15 mL oral 10 g PO TID 04/09/19 10/17/22 History solution ondansetron 4 mg disintegrating 4 mg PO BID PRN Nausea And Vomiting 04/09/19 10/17/22 History tablet warfarin 2 mg tablet 3 mg PO QPM 05/01/19 10/17/22 History lisinopril 2.5 mg tablet 2.5 mg PO QAM #90 tabs 05/21/20 10/17/22 Rx carvedilol 25 mg tablet 12.5 mg PO BID #90 tabs 11/13/21 10/17/22 Rx digoxin 125 mcg (0.125 mg) tablet 125 mcg PO PM #90 tabs 01/20/22 10/17/22 Rx acetaminophen 325 mg tablet 650 mg PO Q4H PRN PAIN/FEVER 10/17/22 10/17/22 History (Tylenol) ascorbic acid (vitamin C) 500 mg 500 mg PO DAILY 10/17/22 10/17/22 History tablet (Vitamin C) atorvastatin 20 mg tablet 20 mg PO HS 10/17/22 10/17/22 History finasteride 5 mg tablet 5 mg PO DAILY 10/17/22 10/17/22 History levothyroxine 100 mcg tablet 100 mcg PO DAILY 10/17/22 10/17/22 History mupirocin 2 % topical ointment 1 applic topical BID 10/17/22 10/17/22 History nystatin 100,000 unit/gram topical 1 applic topical BID PRN RASH AT 10/17/22 10/17/22 History powder OSTOMY SITE tamsulosin 0.4 mg capsule (Flomax) 0.4 mg PO DAILY 10/17/22 10/17/22 History Patient History Medical History (Updated 10/19/22 @ 15:40 by Marci Hawkins MD) Atrial fibrillation Permanent> NO CARDIOVERSIONS >ICD > COUMADIN Bleeding ulcer hx Chronic anticoagulation Chronic ITP (idiopathic thrombocytopenia) Hematology [facility] Cirrhosis Colostomy present Congestive heart failure Coronary artery disease Status post PCI to the LAD 2006, [place] 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 FIRST PLACED 2007 Ischemic cardiomyopathy Echocardiogram in 2016 with ejection fraction 45 percent Status post implantation of dual-chamber Medtr[employer] ICD Obstructive sleep apnea oxygen concentrator/CPAP (3lpm) Stroke ~2017. difficulty understanding concepts. Surgical History H/O splenectomy History of bowel resection History of cardiac cath LAST ONE (APPROX) 2009 History of colectomy History of colonoscopy History of colostomy HAS HAD SINCE 2007 > RIGHT SIDE History of esophagogastroduodenoscopy (EGD) History of heart artery stent ~2010 x2 stents. [facility] [place] History of tonsillectomy Family History Father Diabetes Grandmother Diabetes Grandfather Diabetes Other Hearing loss Heart disease Hypertension No family history of adverse response to anesthesia Stroke Social History Smoking Status: Former smoker Smoking End Date: 38 years ago; Second Hand Exposure: Yes; Do You Dip or Chew Tobacco: No; Hx Alcohol Use: Yes Alcohol type: beer Hx Substance Use: No Preferred Language: Guyanese Communication Ability: Effective Financial Rep Required: No Beliefs That Will Affect Care: None marital status: Current Living Situation: Spouse Other Information That Helps Us Care for You: No Feels Safe at Home: Yes Safety Concerns: Feels Safe At This Time Assistive Devices: None Review of System A complete ROS was performed and is negative except as mentioned in the HPI. Physical Exam Physical Exam: GEN: laying in bed in NAD HEENT: EOMI, dry MM, dentures in place RESP: No increased work of breathing ABD: Soft, non-distended. Non-tender to palpation. Ostomy in RLQ with liquid b rown output. EXT: No LE edema. Warm, well-perfused. SKIN: Some ecchymosis on upper extremities. No rashes/wounds NEURO: Alert and oriented. Answers all questions appropriately. PSYCH: Normal mood, affect appropriate. Results & Data Vital Signs (Past 12 Hours) Vital Signs Temp Pulse Resp BP Pulse Ox O2 Del Method 10/19/22 12:24 100 H 16 94/68 L 98 Room Air 10/19/22 07:25 104 H 18 97/64 L 96 Room Air 10/19/22 03:19 36.4 C L 110 H 16 96/69 L 92 Room Air Laboratory Results Short CBC 10/19/22 Range/Units 05:42 WBC 11.57 H (4.8-10.8) K/ul Hgb 17.9 (14.0-18.0) g/dl Hct 53.4 H (42.0-52.0) % Plt Count 57 L (130-400) K/uL BMP 10/19/22 05:42 Sodium 128 L Potassium 4.5 Chloride 97 L Carbon Dioxide 21 BUN 58 H Creatinine 2.48 H Glucose 114 H Calcium 9.4 Liver Function 10/19/22 Range/Units 05:42 Total Bilirubin 1.3 H (0.2-1.0) mg/dl AST 56 H (13-39) U/L ALT 24 (7-52) U/L Alkaline Phosphatase 74 (34-104) U/L Albumin 3.6 (3.4-5.0) gm/dl Diagnostic Findings Chest X-Ray 10/17/22 21:24 XR chest 1V portable HISTORY: 82 years-old Male weakness acute weakness COMPARISON: 03/17/2022 TECHNIQUE: AP view of the chest FINDINGS: Left subclavian pacer/AICD. Cardiac silhouette is enlarged. Mild pulmonary emphysema. No pneumothorax, pleural effusion, airspace consolidation or pulmonary edema. Bones appear grossly intact. IMPRESSION: No acute process. ACT 112: Negative or not required by law. The above report was generated using voice recognition software. It may contain grammatical, syntax or spelling errors. Electronically signed by: Ke Jay M.D. 10/18/2022 8:20 AM Abdomen/Pelvis CT 10/17/22 22:12 Exam(s): CT ABDOMEN + PELVIS Without Contrast EXAM: CT Abdomen and Pelvis Without Intravenous Contrast CLINICAL HISTORY: Reason for exam: gi bleed, pain, hx TAA. TECHNIQUE: Axial computed tomography images of the abdomen and pelvis without intravenous contrast. CTDI is 19.22 mGy and DLP is 947.49 mGy-cm. Automated exposure control was utilized for the study. A dose lowering technique was utilized adhering to the principles of ALARA. COMPARISON: No relevant prior studies available. FINDINGS: Lung bases: Unremarkable. No mass. No consolidation. ABDOMEN: Liver: Hepatic cirrhosis. Indeterminate low-attenuation lesion RIGHT hepatic lobe, measures approximately 5.4 x 3.6 cm, limited in evaluation without contrast. This is new when compared to April 09, 2019. Consider hepatic MRI for further evaluation. TIPS stent. Gallbladder and bile ducts: Cholelithiasis. No ductal dilation. Pancreas: Unremarkable. No ductal dilation. Spleen: Splenectomy. Adrenals: Unremarkable. No mass. Kidneys and ureters: Unremarkable. No hydronephrosis or nephrolithiasis. Stomach and bowel: Colectomy. RIGHT lower quadrant ileostomy. Diverticulosis, without acute diverticulitis. No small bowel obstruction. No free air. PELVIS: Appendix: See above. Bladder: Unremarkable. No stones. Normal urinary bladder. Reproductive: Unremarkable as visualized. ABDOMEN and PELVIS: Intraperitoneal space: See above. Bones/joints: Degenerative changes of the spine. No acute fracture. No dislocation. Soft tissues: Unremarkable. Vasculature: Atherosclerotic changes of the aorta. No abdominal aortic aneurysm. Lymph nodes: Unremarkable. No enlarged lymph nodes. IMPRESSION: 1. No hydronephrosis or nephrolithiasis. 2. Hepatic cirrhosis. Indeterminate low-attenuation lesion RIGHT hepatic lobe, measures approximately 5.4 x 3.6 cm, limited in evaluation without contrast. This is new when compared to April 09, 2019. Consider hepatic MRI for further evaluation. TIPS stent. 3. Cholelithiasis. 4. Splenectomy. 5. Colectomy. RIGHT lower quadrant ileostomy. 6. Diverticulosis, without acute diverticulitis. No small bowel obstruction. No free air. Electronically signed by: Tyron Washington MD 10/17/22 23:12 PM Medications Administered Current Inpatient Medications Ascorbic Acid (Ascorbic Acid 500 Mg Tab) 500 mg PO DAILY S[facility]IE Stop: 11/19/22 08:59 Atorvastatin Calcium (Atorvastatin 20 Mg Tab) 20 mg PO HS S[facility] Stop: 11/17/22 20:59 Last Admin: 10/18/22 20:15 Dose: 20 mg Brimonidine Tartrate (Brimonidine Tartrate 0.2% 5ml) 1 drops OP BID [facility]IE Stop: 11/17/22 20:59 Last Admin: 10/19/22 07:57 Dose: 1 drops Carvedilol (Carvedilol 12.5 Mg Tab) 12.5 mg PO BID SUSIE Stop: 11/17/22 08:59 Last Admin: 10/19/22 07:57 Dose: 12.5 mg Dextrose (Dextrose 50% 50 Ml Syringe) 25 - 50 ml IV UD PRN; Protocol PRN Reason: Hypoglycemia Protocol Stop: 11/17/22 05:53 Digoxin (Digoxin 0.125 Mg Tab) 0.125 mg PO PM SUSIE Stop: 11/17/22 20:59 Last Admin: 10/18/22 20:16 Dose: 0.125 mg Finasteride (Finasteride 5 Mg Tab) 5 mg PO DAILY [facility] Stop: 11/17/22 08:59 Last Admin: 10/19/22 07:58 Dose: 5 mg Glucagon (Glucagon For Inj 1 Mg Vial) 1 mg SQ UD PRN; Protocol PRN Reason: Hypoglycemia Protocol Stop: 11/17/22 05:53 Glucose (Glucose 10 Tab/Tube) 4 - 8 tab PO UD PRN; Protocol PRN Reason: Hypoglycemia Treatment Stop: 11/17/22 05:53 Glucose (Glucose 40% Gel 15 Gm Tube) 15 - 30 gm PO UD PRN; Protocol PRN Reason: Hypoglycemia Protocol Stop: 11/17/22 05:53 Piperacillin Sod/Tazobactam (Sod 4.5 gm/ Dextrose) 120 mls @ 30 mls/hr IV Q8H SUSIE; Protocol Stop: 10/28/22 12:59 Last Admin: 10/19/22 13:23 Dose: 30 mls/hr Lactated Ringer's (Lr) 1,000 mls @ 100 mls/hr IV .Q10H SUSIE Stop: 11/18/22 10:44 Last Admin: 10/19/22 10:50 Dose: 100 mls/hr Insulin Aspart (Insulin Aspart Per Unit Charge) 0 units SC ACHS SUSIE Stop: 11/17/22 11:29 Last Admin: 10/19/22 12:47 Dose: Not Given Insulin Glargine (Lantus Per Unit Charge) 7 units SQ BID SUSIE Stop: 11/17/22 08:59 Last Admin: 10/19/22 08:02 Dose: 7 units Lactulose (Lactulose Syrup 20 Gm/30 Ml Udc) 10 gm PO TID SUSIE Stop: 11/17/22 08:59 Last Admin: 10/19/22 13:23 Dose: 10 gm Levothyroxine Sodium (Levothyroxine Sodium 100 Mcg Tablet) 100 mcg PO DAILYBB [facility]IE Stop: 11/17/22 06:29 Last Admin: 10/19/22 06:24 Dose: 100 mcg Miscellaneous (Carbohydrates For Hypoglycemia ) 15 - 30 gm PO UD PRN PRN Reason: Hypoglycemia Protocol Stop: 11/17/22 05:53 Ondansetron HCl (Ondansetron Inj 2 Mg/Ml 2 Ml Vial) 4 mg IV Q6H PRN PRN Reason: Nausea And Vomiting Stop: 11/17/22 02:32 Last Admin: 10/18/22 19:26 Dose: 4 mg Pantoprazole Sodium (Pantoprazole 40 Mg Tab) 40 mg PO QAM [facility] Stop: 11/18/22 08:59 Last Admin: 10/19/22 07:58 Dose: 40 mg Rifaximin (Rifaximin 550 Mg Tablet) 550 mg PO BID [facility] Stop: 11/17/22 08:59 Last Admin: 10/19/22 07:58 Dose: 550 mg Tamsulosin HCl (Tamsulosin Hcl 0.4 Mg Cap) 0.4 mg PO DAILY [facility] Stop: 11/17/22 08:59 Last Admin: 10/19/22 07:57 Dose: 0.4 mg Vitamin D (Cholecalciferol 1,000 Units 25 Mcg Tab) 1,000 units PO QAM [facility] Stop: 11/19/22 08:59 Warfarin Sodium (Warfarin Sod 3 Mg Tab) 3 mg PO DAILY@1600 [facility] Stop: 11/18/22 15:59
--- NOTE | 2022-10-19 16:37 | XCELERA ---
[id number]
[2022-10-19] MEDS: WARFARIN SOD 3 MG TAB PO SCH (17:09)
--- NOTE | 2022-10-19 18:25 | Hospitalist Progress Note ---
Date of Service October 19, 2022 Assessment & Plan (1) Septicemia: Plan: 82yo Male with PMH cirrhosis s/p tips procedure, afib on digoxin and warfarin, chronic ITP, diverticulitis with colostomy, hx. GI bleed, s/p splenectomy, ischemic cardiomyopathy, HLD, GERD, JADE, thoracic aortic aneurysm here for nausea vomiting ongoing 2 days. He had been exposed to his grandson that had a viral gastroenteritis prior to his symptoms starting -WBC 19.32 lactate 5.6 (can be elevated in the setting of cirrhosis), tachycardic, and subjective fevers at home. Also with acute kidney injury and hypotension which improved with IV fluids -recent UTI diagnosed by his urologist at an outside facility-treated initially with levofloxacin x5 days, and then added fluconazole x 5 day course -Urinalysis here seems contaminated with epithelial cells -Blood cultures now 1/4 bottles positive for Streptococcus species -He does have an ICD in place and has had a TIPS procedure but does not have any other known implants -Echocardiogram without valvular vegetation but does not rule out endocarditis -Repeat blood cultures to ensure sterility -Was started on IV Zosyn empirically on admission-consulted ID for further recommendation-continue Zosyn for now and follow repeat cultures (2) Acute kidney injury: Plan: Dehydration with INOCENCIA nausea/vomiting, with associated hyperkalemia and anion gap metabolic acidosis, hyponatremia -creat 2.95 on admission and now improving with IV fluids and treatment of sepsis -received calcium gluconate 1g in ED for hyperkalemia -Potassium and serum bicarbonate have now improved. Sodium lower today likely secondary to ongoing hypovolemia -Had received 3.5 L of normal saline on admission and then was discontinued, but with creatinine rising back up slightly today and sodium going down-give LR at 100 MLS per hour -Follow BMP -Monitor urine output-no evidence of retention clinically. CT abdomen/pelvis on admission without evidence of genitourinary obstruction -Continue to hold home lisinopril (3) Acute hyperkalemia: Plan: As above Resolved (4) Nausea & vomiting: Plan: As above, with possible gastroenteritis which is now resolved Tolerating regular diet Had some possible blood in stool on the day of admission which is now resolved after reversal of INR INR was 7 on arrival and was given vitamin K 10 mg x 1. INR down to 1.4 CT A/P: No hydronephrosis or nephrolithiasis. Hepatic cirrhosis. Indeterminate low-attenuation lesion RIGHT hepatic lobe, measures approximately 5.4 x 3.6 cm, limited in evaluation without contrast. This is new when compared to April 09, 2019. Consider hepatic MRI for further evaluation. TIPS sten t. Cholelithiasis. Splenectomy.. Colectomy. RIGHT lower quadrant ileostomy. Diverticulosis, without acute diverticulitis. No small bowel obstruction. No free air. -GI consultation appreciated-plan for scopes as an outpatient -Zofran as needed (5) Cirrhosis: Plan: Long history of such, s/p TIPS procedure for frequent bleeding from colostomy site No acute decompensation With only mildly elevated total bilirubin and AST, chronically low platelets in the 50s to 80s INR elevated but was on Coumadin Does not appear volume overloaded and in fact is hypovolemic and getting IV fluids With known liver mass and is followed [facility] will need to ensure the [facility] is aware of his latest measurement from the CT abdomen/pelvis performed here Continue lactulose, rifaximin (6) Atrial fibrillation: Plan: Afib on warfarin, digoxin-rates remain uncontrolled likely due to ongoing hypovolemia -Continue IV fluids -digoxin level 0.5 ng/ml, continue digoxin -INR 7.4 on admission-was given vitamin K and now INR down to 1.4, restart warfarin on 10/19, follow daily INR -continue carvedilol at current dose of 12.5 Mg p.o. twice daily-cannot increase rate control due to soft blood pressures Monitor on telemetry (7) Post-splenectomy: Plan: Noted (8) Dyslipidemia: Plan: Continue atorvastatin (9) Obstructive sleep apnea: Plan: Continue CPAP at bedtime (10) BPH (benign prostatic hyperplasia): Plan: No acute issues Continue tamsulosin and finasteride (11) Ischemic cardiomyopathy: Plan: Echocardiogram here stable at EF 40-45% Continue carvedilol, holding home lisinopril Not volume overloaded (12) Coronary artery disease: Plan: With a history of PCI of the LAD in 2006 Continue warfarin, carvedilol, atorvastatin (13) Diabetes mellitus, type 2: Plan: Noted in history, he is not on medications for this at home Blood sugars fairly well controlled here on Lantus-continue for now and continue NovoLog supplemental insulin and sliding scale with Accu-Cheks before meals and at bedtime Check hemoglobin A1c in the morning (14) Liver mass: Plan: As noted above, followed by outpatient (15) Hypothyroidism: Plan: TSH normal at 1.6 Continue home levothyroxine 100 mcg daily Plan Disposition-continued stay, will need at least 2 weeks of IV antibiotics for gram-positive bacteremia. He likely will not need rehab, and will need case management involvement for IV antibiotics Admission and Anticipated Discharge Date Admission Date: October 18, 2022 Subjective Patient was feeling very tired this morning but as the day went on he felt better. His urine output was low but improved with starting IV fluids No bloody stools. He is eating. Telemetry with atrial fibrillation and PVCs with rates in the 110s to 160s with movement I discussed his case with infectious disease. Physical Exam Constitutional: WD/WN, vitals as above Respiratory: normal respiratory effort, lungs clear to auscultation Cardiovascular: RRR, no murmur, no edema Gastrointestinal (Abdomen): normal bowel sounds, soft, nontender, no hepatosplenomegaly Neurologic: PERRL, EOMI, accommodation nl, no face palsy, no dysarthria Psychiatric: A+Ox3, euthymic affect Results & Data Results & Data Vital Signs (Past 12 Hours) Vital Signs Temp Pulse Resp BP Pulse Ox O2 Del Method 10/19/22 16:03 36.3 C L 60 18 97/64 L 95 Room Air 10/19/22 12:24 100 H 16 94/68 L 98 Room Air 10/19/22 07:25 104 H 18 97/64 L 96 Room Air Laboratory Results CBC, CMP, INR reviewed Blood cultures with 1/4 Streptococcus species Urine culture pending Diagnostic Findings Echocardiogram with EF 40-45%, mild AI, dilated RV PG Care Time/CCT Total # of Minutes Spent Total Time Spent with Patient: Total time spent is greater than 50% in coordination of care (as documented) at patient's floor/unit and/or counseling patient: Coding Level of Care Code 60458 SUB INP/OBS CARE 3/50MIN Diagnoses Septicemia A41.9 Acute kidney injury N17.9 Acute hyperkalemia E87.5 Nausea & vomiting R11.2 Cirrhosis K74.60 Atrial fibrillation I48.91 Post-splenectomy Z90.81 Dyslipidemia E78.5 Obstructive sleep apnea G47.33 BPH (benign prostatic hyperplasia) N40.0 Ischemic cardiomyopathy I25.5 Coronary artery disease I25.10 Diabetes mellitus, type 2 E11.9 Liver mass R16.0 Hypothyroidism E03.9
[2022-10-19] MEDS: DIGOXIN 0.125 MG TAB PO SCH (20:26)
[2022-10-19] MEDS: ATORVASTATIN 20 MG TAB PO SCH (20:27)
[2022-10-20] MEDS: PIPERACILLIN/TAZOBACTAM 4.5 GM in DEXTROSE 5% 100 ML IV SCH ×3 (05:45→20:05)
[2022-10-20] MEDS: LEVOTHYROXINE SODIUM 100 MCG TABLET PO SCH (05:49)
[2022-10-20 06:40] LABS: Hematocrit (blood only) 49.7 % (42.0-52.0); Hemoglobin 17.2 g/dl (14.0-18.0); Mean Corpuscular Hemoglobin 33.7 pg (25.0-34.0); Mean Corpuscular Hgb Conc 34.6 g/dL (32.0-36.0); Mean Corpuscular Volume 97.5 fL (80.0-100.0); Platelet Count 51 K/uL (130-400); RDW Coefficient of Variation 15.9 % (11.5-14.5); White Blood Count 12.11 K/ul (4.8-10.8)
[2022-10-20 06:50] LABS: Basophils % (auto) 0.8 %; Eosinophils % (auto) 0.8 %; Immature Granulocytes # (auto) 0.04 K/uL (0.01-0.20); Immature Granulocytes % (auto) 0.3 %; Lymphocytes # (auto) 2.57 K/uL (1.2-3.4); Lymphocytes % (auto) 21.2 %; Monocytes # (auto) 1.01 K/uL (0.11-0.59); Monocytes % (auto) 8.3 %; Neutrophils # (auto) 8.29 K/uL (1.40-6.50); Neutrophils % (auto) 68.6 %
[2022-10-20 06:56] LABS: Albumin Globulin Ratio 0.9 (0.9-2); Albumin Level 3.5 gm/dl (3.4-5.0); BUN Creatinine Ratio 29.5 (10-20); Bilirubin,Total 1.1 mg/dl (0.2-1.0); Calcium 8.5 mg/dl (8.6-10.3); Creatinine Clr Calc Pharmacy 25.4 ml/min; Est GFR (African American) 31.7 ml/min; Est GFR (Non-African American) 27.4 ml/min; Globulin 3.8 gm/dl (2.5-4.0); Magnesium 2.1 mg/dl (1.7-2.4); Potassium 4.3 mmol/L (3.5-5.1); Total Protein 7.3 gm/dl (6.0-8.3)
[2022-10-20 06:57] LABS: Howell-Jolly Bodies 1+; Toxic Vacuolation 2+
[2022-10-20 07:00] LABS: INR 1.4 (0.9-1.1); Prothrombin Time 14.6 Seconds (9.0-12.0)
[2022-10-20 07:28] LABS: Estimated Average Glucose 169 mg/dl; Hemoglobin A1C 7.5 % (4.5-5.6)
[2022-10-20] MEDS: LACTATED RINGER'S 1,000 ML IV SCH ×2 (07:34→18:58)
[2022-10-20] MEDS: carvediloL 12.5 MG TAB PO SCH ×2 (08:18→20:04)
[2022-10-20] MEDS: PANTOprazole 40 MG TAB PO SCH (08:18)
[2022-10-20] MEDS: ASCORBIC ACID 500 MG TAB PO SCH (08:18)
[2022-10-20] MEDS: LANTUS PER UNIT CHARGE SQ SCH ×2 (08:18→20:51)
[2022-10-20] MEDS: rifAXIMin 550 MG TABLET PO SCH ×2 (08:19→20:04)
[2022-10-20] MEDS: TAMSULOSIN HCL 0.4 MG CAP PO SCH (08:19)
[2022-10-20] MEDS: INSULIN ASPART PER UNIT CHARGE SC SCH ×4 (08:19→20:47)
[2022-10-20] MEDS: LACTULOSE SYRUP 20 GM/30 ML UDC PO SCH ×3 (08:19→20:06)
[2022-10-20] MEDS: FINASTERIDE 5 MG TAB PO SCH (08:19)
[2022-10-20] MEDS: CHOLECALCIFEROL 1,000 UNITS 25 MCG TAB PO SCH (08:20)
[2022-10-20] MEDS: BRIMONIDINE TARTRATE 0.2% 5ML OP SCH ×2 (08:30→20:05)
[2022-10-20] MEDS: WARFARIN SOD 3 MG TAB PO SCH (16:01)
[2022-10-20] MEDS: ATORVASTATIN 20 MG TAB PO SCH (20:04)
[2022-10-20] MEDS: DIGOXIN 0.125 MG TAB PO SCH (20:04)
[2022-10-20] MEDS: PSYLLIUM or GUAR GUM FIBER POWDER PACKET PO SCH (20:04)
--- NOTE | 2022-10-20 22:43 | Hospitalist Progress Note ---
Date of Service October 20, 2022 Assessment & Plan (1) Septicemia: Plan: 82yo Male with PMH cirrhosis s/p tips procedure, afib on digoxin and warfarin, chronic ITP, diverticulitis with colostomy, hx. GI bleed, s/p splenectomy, ischemic cardiomyopathy, HLD, GERD, JADE, thoracic aortic aneurysm here for nausea vomiting ongoing 2 days. He had been exposed to his grandson that had a viral gastroenteritis prior to his symptoms starting -WBC 19.32 lactate 5.6 (can be elevated in the setting of cirrhosis), tachycardic, and subjective fevers at home. Also with acute kidney injury and hypotension which improved with IV fluids -recent UTI diagnosed by his urologist at an outside facility-treated initially with levofloxacin x5 days, and then added fluconazole x 5 day course -Urinalysis here seems contaminated with epithelial cells -Blood cultures now 1/4 bottles positive for Streptococcus species -He does have an ICD in place and has had a TIPS procedure but does not have any other known implants -Echocardiogram without valvular vegetation but does not rule out endocarditis -Repeat blood cultures to ensure sterility -Was started on IV Zosyn empirically on admission-consulted ID for further recommendation-continue Zosyn for now and follow repeat cultures. -Awaiting cultures (2) Acute kidney injury: Plan: Dehydration with INOCENCIA nausea/vomiting, with associated hyperkalemia and anion gap metabolic acidosis, hyponatremia -creat 2.95 on admission and now improving with IV fluids and treatment of sepsis -received calcium gluconate 1g in ED for hyperkalemia -Potassium and serum bicarbonate have now improved. Sodium lower today likely secondary to ongoing hypovolemia -Had received 3.5 L of normal saline on admission and then was discontinued, but with creatinine rising back up slightly today and sodium going down-give LR at 100 MLS per hour -Follow BMP -Monitor urine output-no evidence of retention clinically. CT abdomen/pelvis on admission without evidence of genitourinary obstruction -Continue to hold home lisinopril (3) Acute hyperkalemia: Plan: As above Resolved (4) Nausea & vomiting: Plan: As above, with possible gastroenteritis which is now resolved Tolerating regular diet Had some possible blood in stool on the day of admission which is now resolved after reversal of INR INR was 7 on arrival and was given vitamin K 10 mg x 1. INR down to 1.4 CT A/P: No hydronephrosis or nephrolithiasis. Hepatic cirrhosis. Indeterminate low-attenuation lesion RIGHT hepatic lobe, measures approximately 5.4 x 3.6 cm, limited in evaluation without contrast. This is new when compared to April 09, 2019. Consider hepatic MRI for further evaluation. TIPS stent. Cholelithiasis. Splenectomy.. Colectomy. RIGHT lower quadrant ileostomy. Diverticulosis, without acute diverticulitis. No small bowel obstruction. No free air. -GI consultation appreciated-plan for scopes as an outpatient -Zofran as needed (5) Cirrhosis: Plan: Long history of such, s/p TIPS procedure for frequent bleeding from colostomy site No acute decompensation With only mildly elevated total bilirubin and AST, chronically low platelets in the 50s to 80s INR elevated but was on Coumadin Does not appear volume overloaded and in fact is hypovolemic and getting IV fluids With known liver mass and is [facility] will need [facility] is [facility] of his latest measurement from the CT abdomen/pelvis performed here Continue lactulose, rifaximin (6) Atrial fibrillation: Plan: Afib on warfarin, digoxin-rates remain uncontrolled likely due to ongoing hypovolemia -Continue IV fluids -digoxin level 0.5 ng/ml, continue digoxin -INR 7.4 on admission-was given vitamin K and now INR down to 1.4, restart warfarin on 10/19, follow daily INR -continue carvedilol at current dose of 12.5 Mg p.o. twice daily-cannot increase rate control due to soft blood pressures Monitor on telemetry (7) Post-splenectomy: Plan: Noted (8) Dyslipidemia: Plan: Continue atorvastatin (9) Obstructive sleep apnea: Plan: Continue CPAP at bedtime (10) BPH (benign prostatic hyperplasia): Plan: No acute issues Continue tamsulosin and finasteride (11) Ischemic cardiomyopathy: Plan: Echocardiogram here stable at EF 40-45% Continue carvedilol, holding home lisinopril Not volume overloaded (12) Coronary artery disease: Plan: With a history of PCI of the LAD in 2006 Continue warfarin, carvedilol, atorvastatin (13) Diabetes mellitus, type 2: Plan: Noted in history, he is not on medications for this at home Blood sugars fairly well controlled here on Lantus-continue for now and continue NovoLog supplemental insulin and sliding scale with Accu-Cheks before meals and at bedtime Obtained A1C (14) Liver mass: Plan: As noted above, followed by outpatient (15) Hypothyroidism: Plan: TSH normal at 1.6 Continue home levothyroxine 100 mcg daily Plan Disposition-continued stay, will need at least 2 weeks of IV antibiotics for gram-positive bacteremia. He likely will not need rehab, and will need case management involvement for IV antibiotics Awaiting finalized cultures Admission and Anticipated Discharge Date Admission Date: October 18, 2022 Subjective 82 yo male reports no new symptoms. Review of Systems Review of Systems: All systems reviewed & are unremarkable except as noted in HPI & below Physical Exam Constitutional: WD/WN, vitals as above Respiratory: normal respiratory effort, lungs clear to auscultation Cardiovascular: RRR, no murmur, no edema Gastrointestinal (Abdomen): normal bowel sounds, soft, nontender, no hepatosplenomegaly Neurologic: PERRL, EOMI, accommodation nl, no face palsy, no dysarthria Psychiatric: A+Ox3, euthymic affect Results & Data Results & Data Vital Signs (Past 12 Hours) Vital Signs Temp Pulse Pulse Resp BP Pulse Ox O2 Del Method 10/20/22 21:30 Nasal Cannula 10/20/22 20:04 95 H 10/20/22 19:16 36.4 C L 95 H 18 108/75 95 Room Air 10/20/22 15:11 36.3 C L 81 19 103/66 93 Room Air 10/20/22 11:18 36.5 C 86 19 107/72 94 Room Air O2 Flow Rate 10/20/22 21:30 2 10/20/22 20:04 10/20/22 19:16 10/20/22 15:11 10/20/22 11:18 PG Care Time/CCT Total # of Minutes Spent Total Time Spent with Patient: Total time spent is greater than 50% in coordination of care (as documented) at patient's floor/unit and/or counseling patient: Coding Level of Care Code 29003 SUB INP/OBS CARE 2/35MIN Diagnoses Septicemia A41.9 Acute kidney injury N17.9 Acute hyperkalemia E87.5 Nausea & vomiting R11.2 Cirrhosis K74.60 Atrial fibrillation I48.91 Post-splenectomy Z90.81 Dyslipidemia E78.5 Obstructive sleep apnea G47.33 BPH (benign prostatic hyperplasia) N40.0 Ischemic cardiomyopathy I25.5 Coronary artery disease I25.10 Diabetes mellitus, type 2 E11.9 Liver mass R16.0 Hypothyroidism E03.9
[2022-10-21] MEDS: PIPERACILLIN/TAZOBACTAM 4.5 GM in DEXTROSE 5% 100 ML IV SCH (04:23)
[2022-10-21] MEDS: LEVOTHYROXINE SODIUM 100 MCG TABLET PO SCH (05:43)
[2022-10-21 06:57] LABS: INR 2.2 (0.9-1.1); Prothrombin Time 22.5 Seconds (9.0-12.0)
[2022-10-21 08:19] LABS: Calcium 8.4 mg/dl (8.6-10.3); Potassium 4.1 mmol/L (3.5-5.1)
[2022-10-21 08:25] LABS: BUN Creatinine Ratio 31.2 (10-20); Creatinine Clr Calc Pharmacy 27.7 ml/min; Est GFR (African American) 35.2 ml/min; Est GFR (Non-African American) 30.4 ml/min
[2022-10-21 08:28] LABS: Basophils # (auto) 0.08 K/uL (0-0.2); Basophils % (auto) 0.7 %; Eosinophils # (auto) 0.18 K/uL (0-0.50); Eosinophils % (auto) 1.6 %; Giant Platelets 1+; Hematocrit (blood only) 49.4 % (42.0-52.0); Hemoglobin 17.1 g/dl (14.0-18.0); Immature Granulocytes # (auto) 0.04 K/uL (0.01-0.20); Immature Granulocytes % (auto) 0.3 %; Lymphocytes % (auto) 28.6 %; Mean Corpuscular Hemoglobin 33.5 pg (25.0-34.0); Mean Corpuscular Hgb Conc 34.6 g/dL (32.0-36.0); Mean Corpuscular Volume 96.7 fL (80.0-100.0); Monocytes # (auto) 1.48 K/uL (0.11-0.59); Monocytes % (auto) 12.8 %; Neutrophils # (auto) 6.47 K/uL (1.40-6.50); Platelet Count 47 K/uL (130-400); Polychromasia 1+; RDW Coefficient of Variation 15.4 % (11.5-14.5); RDW Standard Deviation 55.2 fL (36.4-46.3); Red Blood Count 5.11 M/uL (4.70-6.10); Tear Drop Cells 1+; Toxic Vacuolation 2+; White Blood Count 11.55 K/ul (4.8-10.8)
[2022-10-21] MEDS: PSYLLIUM or GUAR GUM FIBER POWDER PACKET PO SCH (09:02)
[2022-10-21] MEDS: ASCORBIC ACID 500 MG TAB PO SCH (09:03)
[2022-10-21] MEDS: PANTOprazole 40 MG TAB PO SCH (09:03)
[2022-10-21] MEDS: BRIMONIDINE TARTRATE 0.2% 5ML OP SCH ×2 (09:04→20:40)
[2022-10-21] MEDS: rifAXIMin 550 MG TABLET PO SCH ×2 (09:04→20:39)
[2022-10-21] MEDS: FINASTERIDE 5 MG TAB PO SCH (09:04)
[2022-10-21] MEDS: LACTULOSE SYRUP 20 GM/30 ML UDC PO SCH (09:04)
[2022-10-21] MEDS: TAMSULOSIN HCL 0.4 MG CAP PO SCH (09:04)
[2022-10-21] MEDS: LANTUS PER UNIT CHARGE SQ SCH ×2 (09:05→21:20)
[2022-10-21] MEDS: CHOLECALCIFEROL 1,000 UNITS 25 MCG TAB PO SCH (09:06)
[2022-10-21] MEDS: INSULIN ASPART PER UNIT CHARGE SC SCH ×4 (09:06→21:20)
--- NOTE | 2022-10-21 09:15 | Infectious Disease Progress Nt ---
Date of Service October 21, 2022 Assessment & Plan (1) Bacteremia: (2) Acute kidney injury: (3) Nausea & vomiting: (4) Cirrhosis: Plan 82 yo M with history of cirrhosis s/p TIPS procedure, DM2, CAD s/p PCI, ICM, ICD, afib on digoxin and warfarin, chronic ITP, diverticulitis with colostomy, GIB, s/p splenectomy, JADE, thoracic aortic aneurysm who presented on 10/17 with N/V x 2 days. Pt reports that he regularly gets nausea at least once a week, which resolves after 2 hours. However 2 nights ago, he developed persistent and worsening nausea. Pt was reportedly prescribed two courses of antimicrobials recently for UTI. Per outpatient pharmacy, he was given levofloxacin 500 mg da héctor x 5 days on 09/28, then fluconazole 200 mg daily x 1 week on 10/08. Pt states that he needed a second course since the first one did not work. Symptoms of dysuria resolved with the antimicrobials. Pt denied fever, shortness of breath, abd pain, rash. On admission, pt reported his colostomy drainage has been more reddish/watery lately. However, on evaluation 10/19, pt reports his output has not changed. On presentation, pt was afebrile, HR 115, BP 92/60. Labs showed WBC 19.32, Hb 18.9, plt 94, Cr 2.95, lactate 3.6 --> 5.6. CXR with no acute process. CT A/P wo contrast showed no hydronephrosis or nephrolithiasis, cholelithiasis, diverticulosis without diverticulitis, and hepatic cirrhosis with indeterminate low-attenuation lesion R hepatic lobe measuring 5.4 x 3.6 cm, new from 2018. C diff neg. UA with 5-10 WBCs. Pt was started on Zosyn. BCx were collected which grew gamma-hemolytic Strep in 1/4 bottles. UCx grew 3 types of organisms, all moderate counts. GI was consulted for stool occult positive. As for his liver lesion, he has a known liver mass [facility] Unclear source of gamma-hemolytic Strep bacteremia at this time. States he has had no teeth for years, no recent dental procedures. Denies wounds on his skin. Denies having hardware/prosthetic devices in his body other than TIPS. TTE on 10/19 did not show vegetations. WBC has downtrended to 11-12. Micro: 10/19 BCx x2: NGTD 10/18 UCx: 3 types of organisms 10/17 BCx x2: Gamma strep (not enterococcus) in 1/4 bottles Abx: Pip-tazo 10/17 - 10/21 Ceftriaxone 10/21 - present Problems: #Gamma-hemolytic Strep bacteremia #Nausea/vomiting #Liver lesion 5.4 x 3.6 cm #Cirrhosis s/p TIPS Recommendations: -I have asked the micro lab to identify the gamma-hemolytic Strep in 10/17 BCx and perform sensitivities. May represent contaminant -Follow-up 10/19 BCx for clearance -Discontinued pip-tazo. Started ceftriaxone 2 g IV daily Will continue to follow. Please page ID [facility] with further questions. Admission and Anticipated Discharge Date Admission Date: October 18, 2022 Subjective This patient recommendation is based on a telemedicine consult request which was completed asynchronously through chart review and information provided by the primary physician. The patient was not seen or examined today. The evaluation is consultative in nature and all patient care and treatment decisions can either be accepted or rejected by the patient's primary hospital-based treating physician using their own independent medical judgment for their patient. Time Spent Reviewing Chart: 11 - 20 minutes 10/17 BCx growing gamma strep in 1/4 bottles Currently on pip-tazo Review of System pt not seen Physical Exam Physical Exam: pt not seen Results & Data Vital Signs (Past 12 Hours) Vital Signs Temp Pulse Resp BP Pulse Ox O2 Del Method O2 Flow Rate 10/21/22 07:45 36.2 C L 73 18 98/61 L 95 Nasal Cannula 2.0 10/21/22 02:44 36.3 C L 82 16 107/73 93 Room Air 10/20/22 23:03 36.4 C L 83 16 104/77 92 Room Air 10/20/22 21:30 Nasal Cannula 2 Laboratory Results Short CBC 10/21/22 Range/Units 07:39 WBC 11.55 H (4.8-10.8) K/ul Hgb 17.1 (14.0-18.0) g/dl Hct 49.4 (42.0-52.0) % Plt Count 47 L (130-400) K/uL BMP 10/21/22 07:39 Sodium 126 L Potassium 4.1 Chloride 99 Carbon Dioxide 18 L BUN 62 H Creatinine 1.99 H Glucose 117 H Calcium 8.4 L Medications Administered Current Inpatient Medications Ascorbic Acid (Ascorbic Acid 500 Mg Tab) 500 mg PO DAILY [facility] Stop: 11/19/22 08:59 Last Admin: 10/21/22 09:03 Dose: 500 mg Atorvastatin Calcium (Atorvastatin 20 Mg Tab) 20 mg PO HS SUSIE Stop: 11/17/22 20:59 Last Admin: 10/20/22 20:04 Dose: 20 mg Brimonidine Tartrate (Brimonidine Tartrate 0.2% 5ml) 1 drops OP BID [facility] Stop: 11/17/22 20:59 Last Admin: 10/21/22 09:04 Dose: 1 drops Carvedilol (Carvedilol 12.5 Mg Tab) 12.5 mg PO BID [facility] Stop: 11/17/22 08:59 Last Admin: 10/20/22 20:04 Dose: 12.5 mg Dextrose (Dextrose 50% 50 Ml Syringe) 25 - 50 ml IV UD PRN; Protocol PRN Reason: Hypoglycemia Protocol Stop: 11/17/22 05:53 Digoxin (Digoxin 0.125 Mg Tab) 0.125 mg PO PM [facility] Stop: 11/17/22 20:59 Last Admin: 10/20/22 20:04 Dose: 0.125 mg Finasteride (Finasteride 5 Mg Tab) 5 mg PO DAILY [facility] Stop: 11/17/22 08:59 Last Admin: 10/21/22 09:04 Dose: 5 mg Glucagon (Glucagon For Inj 1 Mg Vial) 1 mg SQ UD PRN; Protocol PRN Reason: Hypoglycemia Protocol Stop: 11/17/22 05:53 Glucose (Glucose 10 Tab/Tube) 4 - 8 tab PO UD PRN; Protocol PRN Reason: Hypoglycemia Treatment Stop: 11/17/22 05:53 Glucose (Glucose 40% Gel 15 Gm Tube) 15 - 30 gm PO UD PRN; Protocol PRN Reason: Hypoglycemia Protocol Stop: 11/17/22 05:53 Piperacillin Sod/Tazobactam (Sod 4.5 gm/ Dextrose) 120 mls @ 30 mls/hr IV Q8H SUSIE; Protocol Stop: 10/28/22 12:59 Last Infusion: 10/21/22 08:39 Dose: Infused Insulin Aspart (Insulin Aspart Per Unit Charge) 0 units SC ACHS [facility] Stop: 11/17/22 11:29 Last Admin: 10/21/22 09:06 Dose: Not Given Insulin Glargine (Lantus Per Unit Charge) 7 units SQ BID [facility] Stop: 11/17/22 08:59 Last Admin: 10/21/22 09:05 Dose: 7 units Lactulose (Lactulose Syrup 20 Gm/30 Ml Udc) 10 gm PO TID [facility] Stop: 11/17/22 08:59 Last Admin: 10/21/22 09:04 Dose: 10 gm Levothyroxine Sodium (Levothyroxine Sodium 100 Mcg Tablet) 100 mcg PO DAILYBB [facility] Stop: 11/17/22 06:29 Last Admin: 10/21/22 05:43 Dose: 100 mcg Miscellaneous (Carbohydrates For Hypoglycemia ) 15 - 30 gm PO UD PRN PRN Reason: Hypoglycemia Protocol Stop: 11/17/22 05:53 Ondansetron HCl (Ondansetron Inj 2 Mg/Ml 2 Ml Vial) 4 mg IV Q6H PRN PRN Reason: Nausea And Vomiting Stop: 11/17/22 02:32 Last Admin: 10/18/22 19:26 Dose: 4 mg Pantoprazole Sodium (Pantoprazole 40 Mg Tab) 40 mg PO QAM [facility] Stop: 11/18/22 08:59 Last Admin: 10/21/22 09:03 Dose: 40 mg Psyllium Hydrophilic Mucilloid (Psyllium Or Guar Gum Fiber Powder Packet) 1 pkt PO QAM [facility] Stop: 11/19/22 18:59 Last Admin: 10/21/22 09:02 Dose: 1 pkt Rifaximin (Rifaximin 550 Mg Tablet) 550 mg PO BID [facility] Stop: 11/17/22 08:59 Last Admin: 10/21/22 09:04 Dose: 550 mg Tamsulosin HCl (Tamsulosin Hcl 0.4 Mg Cap) 0.4 mg PO DAILY [facility] Stop: 11/17/22 08:59 Last Admin: 10/21/22 09:04 Dose: 0.4 mg Vitamin D (Cholecalciferol 1,000 Units 25 Mcg Tab) 1,000 units PO QAM [facility] Stop: 11/19/22 08:59 Last Admin: 10/21/22 09:06 Dose: 1,000 units Warfarin Sodium (Warfarin Sod 3 Mg Tab) 3 mg PO DAILY@1600 [facility] Stop: 11/18/22 15:59 Last Admin: 10/20/22 16:01 Dose: 3 mg
[2022-10-21] MEDS ORDERED: Nursing to Pharmacy Communication SCH (10:00)
[2022-10-21] MEDS: carvediloL 12.5 MG TAB PO SCH ×2 (10:26→20:39)
[2022-10-21] MEDS: cefTRIAXone SODIUM 2,000 MG in DEXTROSE 5% 50 ML IV SCH (13:02)
--- NOTE | 2022-10-21 13:04 | Hospitalist Progress Note ---
Date of Service October 21, 2022 Assessment & Plan (1) Septicemia: Plan: 82yo Male with PMH cirrhosis s/p tips procedure, afib on digoxin and warfarin, chronic ITP, diverticulitis with colostomy, hx. GI bleed, s/p splenectomy, ischemic cardiomyopathy, HLD, GERD, JADE, thoracic aortic aneurysm here for nausea vomiting ongoing 2 days. Patient with viral gastroenteritis prior to symptom onset Was admitted with leukocytosis of 19, and lactate of 5.6 in the setting of liver cirrhosis with tachycardia/fever Was treated [employer] as an outpatient with Levaquin for 5 days and then follow-up fluconazole for 5 days for UTI Blood cultures 04/15 positive for Streptococcus species. ID consulted, sent for speciation and sensitivities Switch from Zosyn to Rocephin Due to INOCENCIA, hyponatremia, pending sensitivities would not recommend discharge 10/21, although patient is clinically progressing well. Hopefully will be able to transition to discharge 10/22 on oral antibiotics (2) Acute kidney injury: Plan: Dehydration with NIOCENCIA nausea/vomiting, with associated hyperkalemia and anion gap metabolic acidosis, hyponatremia -creat 2.95 -received calcium gluconate 1g in ED for hyperkalemia -Potassium and serum bicarbonate have now improved. Sodium lower today likely secondary to ongoing hypovolemia and increased losses through high ostomy output Lactulose decreased due to rapid output from ostomy Improving, creatinine downtrending with baseline around 1.5, current creatinine 1.99. Potassium is normal today (3) Acute hyperkalemia: Plan: As above Resolved (4) Nausea & vomiting: Plan: As above, with possible gastroenteritis which is now resolved Tolerating regular diet Had some possible blood in stool on the day of admission which is now resolved after reversal of INR INR was 7 on arrival and was given vitamin K 10 mg x 1. INR down to 1.4, now within goal range at 2.2 as of / CT A/P: No hydronephrosis or nephrolithiasis. Hepatic cirrhosis. Indeterminate low-attenuation lesion RIGHT hepatic lobe, measures approximately 5.4 x 3.6 cm, limited in evaluation without contrast. This is new when compared to April 09, 2019. Consider hepatic MRI for further evaluation. TIPS stent. Cholelithiasis. Splenectomy.. Colectomy. RIGHT lower quadrant ileostomy. Diverticulosis, without acute diverticulitis. No small bowel obstruction. No free air. -GI consultation appreciated-plan for scopes as an outpatient (5) Cirrhosis: Plan: Long history of such, s/p TIPS procedure for frequent bleeding from colostomy site No acute decompensation With only mildly elevated total bilirubin and AST, chronically low platelets in the 50s to 80s INR elevated but was on Coumadin Does not appear volume overloaded and in fact is hypovolemic and getting IV fluids With known liver mass and is [facility] will need to ensure the [facility] is [facility] of his latest measurement from the CT abdomen/pelvis performed here Continue lactulose, rifaximin (6) Atrial fibrillation: Plan: Afib on warfarin, digoxin-rates remain uncontrolled likely due to ongoing hypovolemia -digoxin level 0.5 ng/ml, continue digoxin INR therapeutic 10/21 -continue carvedilol at current dose of 12.5 Mg p.o. twice daily-cannot increase rate control due to soft blood pressures Monitor on telemetry (7) Post-splenectomy: Plan: Noted (8) Dyslipidemia: Plan: Continue atorvastatin (9) Obstructive sleep apnea: Plan: Continue CPAP at bedtime (10) BPH (benign prostatic hyperplasia): Plan: No acute issues Continue tamsulosin and finasteride (11) Ischemic cardiomyopathy: Plan: Echocardiogram here stable at EF 40-45% Continue carvedilol, holding home lisinopril Not volume overloaded (12) Coronary artery disease: Plan: With a history of PCI of the LAD in 2006 Continue warfarin, carvedilol, atorvastatin (13) Diabetes mellitus, type 2: Plan: Noted in history, he is not on medications for this at home Blood sugars fairly well controlled here on Lantus-continue for now and continue NovoLog supplemental insulin and sliding scale with Accu-Cheks before meals and at bedtime Obtained A1C (14) Liver mass: Plan: As noted above, followed by outpatient (15) Hypothyroidism: Plan: TSH normal at 1.6 Continue home levothyroxine 100 mcg daily Plan Disposition-continued stay, pending speciation of positive blood cultures and antibiotic recommendations. ID following Awaiting finalized cultures Admission and Anticipated Discharge Date Admission Date: October 18, 2022 Subjective Seen at the bedside. Patient feels very well, except continues to have high output from his ostomy. No fever/chills/sweats. No chest pain. No voiding issues Review of Systems Review of Systems: All systems reviewed & are unremarkable except as noted in Subjective Physical Exam Physical Exam: General: A&Ox3. NAD. Cooperative. HEENT: Atraumatic, normocephalic. Vision/hearing Pulm: CTAB A&P. -wheezes, -rales, -rhonchi. Symmetrical chest rise. No increase in work of breathing. No respiratory distress. Cardiac: RRR, -mrg. Radial pulses intact and symmetrical. Abdominal: Nontender, nondistended, soft. BS present. Ostomy with some skin erosion around Extremities: Warm, dry Results & Data Results & Data Vital Signs (Past 12 Hours) Vital Signs Temp Pulse Resp BP Pulse Ox O2 Del Method O2 Flow Rate 10/21/22 11:00 36.3 C L 88 18 104/69 98 Room Air 10/21/22 07:45 36.2 C L 73 18 98/61 L 95 Nasal Cannula 2.0 10/21/22 02:44 36.3 C L 82 16 107/73 93 Room Air PG Care Time/CCT Total # of Minutes Spent Total Time Spent with Patient: Total time spent is greater than 50% in coordination of care (as documented) at patient's floor/unit and/or counseling patient: Coding Level of Care Code 12861 SUB INP/OBS CARE 3/50MIN Diagnoses Septicemia A41.9 Acute kidney injury N17.9 Acute hyperkalemia E87.5 Nausea & vomiting R11.2 Cirrhosis K74.60 Atrial fibrillation I48.91 Post-splenectomy Z90.81 Dyslipidemia E78.5 Obstructive sleep apnea G47.33 BPH (benign prostatic hyperplasia) N40.0 Ischemic cardiomyopathy I25.5 Coronary artery disease I25.10 Diabetes mellitus, type 2 E11.9 Liver mass R16.0 Hypothyroidism E03.9
[2022-10-21] MEDS: WARFARIN SOD 3 MG TAB PO SCH (15:15)
[2022-10-21] MEDS: ATORVASTATIN 20 MG TAB PO SCH (20:39)
[2022-10-21] MEDS: DIGOXIN 0.125 MG TAB PO SCH (20:40)
[2022-10-22] MEDS: LEVOTHYROXINE SODIUM 100 MCG TABLET PO SCH (06:17)
[2022-10-22 06:48] LABS: BUN Creatinine Ratio 33.8 (10-20); Calcium 8.2 mg/dl (8.6-10.3); Creatinine Clr Calc Pharmacy 27.8 ml/min; Est GFR (African American) 35.4 ml/min; Est GFR (Non-African American) 30.6 ml/min; Potassium 4.5 mmol/L (3.5-5.1)
[2022-10-22 07:08] LABS: INR 3.5 (0.9-1.1); Prothrombin Time 35.6 Seconds (9.0-12.0)
[2022-10-22 07:48] LABS: Basophils # (auto) 0.08 K/uL (0-0.2); Basophils % (auto) 0.7 %; Eosinophils # (auto) 0.26 K/uL (0-0.50); Eosinophils % (auto) 2.1 %; Hematocrit (blood only) 47.2 % (42.0-52.0); Hemoglobin 17.1 g/dl (14.0-18.0); Immature Granulocytes # (auto) 0.08 K/uL (0.01-0.20); Immature Granulocytes % (auto) 0.7 %; Lymphocytes # (auto) 2.43 K/uL (1.2-3.4); Mean Corpuscular Hemoglobin 34.2 pg (25.0-34.0); Mean Corpuscular Hgb Conc 36.2 g/dL (32.0-36.0); Mean Corpuscular Volume 94.4 fL (80.0-100.0); Mean Platelet Volume 13.4 fL (9.4-12.4); Monocytes # (auto) 1.24 K/uL (0.11-0.59); Monocytes % (auto) 10.2 %; Neutrophils # (auto) 8.09 K/uL (1.40-6.50); Neutrophils % (auto) 66.3 %; Platelet Count 68 K/uL (130-400); RDW Coefficient of Variation 15.3 % (11.5-14.5); RDW Standard Deviation 53.1 fL (36.4-46.3); White Blood Count 12.18 K/ul (4.8-10.8)
[2022-10-22] MEDS ORDERED: SODIUM CHLORIDE 0.9% 1000ML 500 ML IV ONE ×2 (08:00→11:09)
[2022-10-22] MEDS: BRIMONIDINE TARTRATE 0.2% 5ML OP SCH ×2 (08:19→21:16)
[2022-10-22] MEDS: LANTUS PER UNIT CHARGE SQ SCH ×2 (08:19→21:05)
[2022-10-22] MEDS: FINASTERIDE 5 MG TAB PO SCH (08:20)
[2022-10-22] MEDS: CHOLECALCIFEROL 1,000 UNITS 25 MCG TAB PO SCH (08:20)
[2022-10-22] MEDS: PANTOprazole 40 MG TAB PO SCH (08:20)
[2022-10-22] MEDS: TAMSULOSIN HCL 0.4 MG CAP PO SCH (08:20)
[2022-10-22] MEDS: PSYLLIUM or GUAR GUM FIBER POWDER PACKET PO SCH (08:20)
[2022-10-22] MEDS: ASCORBIC ACID 500 MG TAB PO SCH (08:20)
[2022-10-22] MEDS: rifAXIMin 550 MG TABLET PO SCH ×2 (08:20→20:58)
[2022-10-22] MEDS: carvediloL 12.5 MG TAB PO SCH ×2 (08:59→20:53)
[2022-10-22] MEDS ORDERED: LACTULOSE SYRUP 20 GM/30 ML UDC PO SCH (09:00)
[2022-10-22] MEDS: INSULIN ASPART PER UNIT CHARGE SC SCH ×4 (09:00→21:13)
--- NOTE | 2022-10-22 09:31 | Infectious Disease Progress Nt ---
Date of Service October 22, 2022 Assessment & Plan (1) Bacteremia: (2) Acute kidney injury: (3) Nausea & vomiting: (4) Cirrhosis: Plan 82 yo M with history of cirrhosis s/p TIPS procedure, DM2, CAD s/p PCI, ICM, ICD, afib on digoxin and warfarin, chronic ITP, diverticulitis with colostomy, GIB, s/p splenectomy, JADE, thoracic aortic aneurysm who presented on 10/17 with N/V x 2 days. Pt reports that he regularly gets nausea at least once a week, which resolves after 2 hours. However 2 nights ago, he developed persistent and worsening nausea. Pt was reportedly prescribed two courses of antimicrobials recently for UTI. Per outpatient pharmacy, he was given levofloxacin 500 mg da héctor x 5 days on 09/28, then fluconazole 200 mg daily x 1 week on 10/08. Pt states that he needed a second course since the first one did not work. Symptoms of dysuria resolved with the antimicrobials. Pt denied fever, shortness of breath, abd pain, rash. On admission, pt reported his colostomy drainage has been more reddish/watery lately. On presentation, pt was afebrile, HR 115, BP 92/60. Labs showed WBC 19.32, Hb 18.9, plt 94, Cr 2.95, lactate 3.6 --> 5.6. CXR with no acute process. CT A/P wo contrast showed no hydronephrosis or nephrolithiasis, cholelithiasis, diverticulosis without diverticulitis, and hepatic cirrhosis with indeterminate low-attenuation lesion R hepatic lobe measuring 5.4 x 3.6 cm, new from 2018. C diff neg. UA with 5-10 WBCs. Pt was started on Zosyn. BCx were collected which grew Strep mutans in 1/4 bottles. UCx grew 3 types of organisms, all moderate counts. GI was consulted for stool occult positive. As for his liver lesion, he has a known liver mass [facility] Unclear source of Strep mutans bacteremia at this time. Strep mutans is typically found in oral cavity, and can cause endocarditis. Pt states he has had no teeth for years, no recent dental procedures. Denies wounds on his skin. Denies having hardware/prosthetic devices in his body other than TIPS and ICD. TTE on 10/19 did not show vegetations. Micro: 10/19 BCx x2: NGTD 10/18 UCx: 3 types of organisms 10/17 BCx x2: Strep mutans in 1/4 bottles (not viable for sensitivities) Abx: Pip-tazo 10/17 - 10/21 Ceftriaxone 10/21 - present Problems: #Strep mutans bacteremia #Nausea/vomiting #Liver lesion 5.4 x 3.6 cm #Cirrhosis s/p TIPS Recommendations: -With Strep mutans growing in only 1/4 bottles in one set of blood cultures, and repeat blood cultures NGTD, think endocarditis/ICD infection may be less likely -On discharge, can transition to cefadroxil 500 mg PO q12h (note higher dose despite renal insufficiency, given we are treating bacteremia) to complete a 14 day course from cleared blood cultures (10/19 - 11/01) -Would obtain a set of blood cultures ~1 week after completing antibiotics, to ensure clearance. If again bacteremic, would obtain RAFFI to rule out endocardi tis/ICD lead vegetation Will sign off. Please page [facility] with further questions. Admission and Anticipated Discharge Date Admission Date: October 18, 2022 Subjective This patient recommendation is based on a telemedicine consult request which was completed asynchronously through chart review and information provided by the primary physician. The patient was not seen or examined today. The evaluation is consultative in nature and all patient care and treatment decisions can either be accepted or rejected by the patient's primary hospital-based treating physician using their own independent medical judgment for their patient. Time Spent Reviewing Chart: 11 - 20 minutes WBC 12.18 No acute events Has had colostomy leaking over last few days requiring frequent changes. Per RN note, skin around stoma is macerated, painful, bleeding. Review of System pt not seen Physical Exam Physical Exam: pt not seen Results & Data Vital Signs (Past 12 Hours) Vital Signs Temp Pulse Resp BP Pulse Ox O2 Del Method O2 Flow Rate 10/22/22 07:15 36.2 C L 95 H 16 125/69 96 Nasal Cannula 2.0 10/22/22 02:49 36.2 C L 86 18 88/61 L 91 Room Air 10/21/22 22:48 36.4 C L 82 18 92/60 L 92 Room Air Laboratory Results Short CBC 10/22/22 Range/Units 05:37 WBC 12.18 H (4.8-10.8) K/ul Hgb 17.1 (14.0-18.0) g/dl Hct 47.2 (42.0-52.0) % Plt Count 68 L (130-400) K/uL [facility] 10/22/22 05:37 Sodium 124 L Potassium 4.5 Chloride 98 Carbon Dioxide 17 L BUN 67 H Creatinine 1.98 H Glucose 116 H Calcium 8.2 L Medications Administered Current Inpatient Medications Ascorbic Acid (Ascorbic Acid 500 Mg Tab) 500 mg PO DAILY SUSIE Stop: 11/19/22 08:59 Last Admin: 10/22/22 08:20 Dose: 500 mg Atorvastatin Calcium (Atorvastatin 20 Mg Tab) 20 mg PO HS SUSIE Stop: 11/17/22 20:59 Last Admin: 10/21/22 20:39 Dose: 20 mg Brimonidine Tartrate (Brimonidine Tartrate 0.2% 5ml) 1 drops OP BID SUSIE Stop: 11/17/22 20:59 Last Admin: 10/22/22 08:19 Dose: 1 drops Carvedilol (Carvedilol 12.5 Mg Tab) 12.5 mg PO BID SUSIE Stop: 11/17/22 08:59 Last Admin: 10/22/22 08:59 Dose: Not Given Dextrose (Dextrose 50% 50 Ml Syringe) 25 - 50 ml IV UD PRN; Protocol PRN Reason: Hypoglycemia Protocol Stop: 11/17/22 05:53 Digoxin (Digoxin 0.125 Mg Tab) 0.125 mg PO PM SUSIE Stop: 11/17/22 20:59 Last Admin: 10/21/22 20:40 Dose: 0.125 mg Finasteride (Finasteride 5 Mg Tab) 5 mg PO DAILY SUSIE Stop: 11/17/22 08:59 Last Admin: 10/22/22 08:20 Dose: 5 mg Glucagon (Glucagon For Inj 1 Mg Vial) 1 mg SQ UD PRN; Protocol PRN Reason: Hypoglycemia Protocol Stop: 11/17/22 05:53 Glucose (Glucose 10 Tab/Tube) 4 - 8 tab PO UD PRN; Protocol PRN Reason: Hypoglycemia Treatment Stop: 11/17/22 05:53 Glucose (Glucose 40% Gel 15 Gm Tube) 15 - 30 gm PO UD PRN; Protocol PRN Reason: Hypoglycemia Protocol Stop: 11/17/22 05:53 Ceftriaxone Sodium 2,000 mg/ (Dextrose) 70 mls @ 100 mls/hr IV Q24H [facility]; Protocol Stop: 11/04/22 11:59 Last Infusion: 10/21/22 14:13 Dose: Infused Insulin Aspart (Insulin Aspart Per Unit Charge) 0 units SC ACHS [facility] Stop: 11/17/22 11:29 Last Admin: 10/22/22 09:00 Dose: Not Given Insulin Glargine (Lantus Per Unit Charge) 7 units SQ BID [facility] Stop: 11/17/22 08:59 Last Admin: 10/22/22 08:19 Dose: 7 units Lactulose (Lactulose Syrup 20 Gm/30 Ml Udc) 10 gm PO DAILY [facility] Stop: 11/21/22 08:59 Last Admin: 10/22/22 08:20 Dose: 10 gm Levothyroxine Sodium (Levothyroxine Sodium 100 Mcg Tablet) 100 mcg PO DAILYBB [facility] Stop: 11/17/22 06:29 Last Admin: 10/22/22 06:17 Dose: 100 mcg Miscellaneous (Carbohydrates For Hypoglycemia ) 15 - 30 gm PO UD PRN PRN Reason: Hypoglycemia Protocol Stop: 11/17/22 05:53 Ondansetron HCl (Ondansetron Inj 2 Mg/Ml 2 Ml Vial) 4 mg IV Q6H PRN PRN Reason: Nausea And Vomiting Stop: 11/17/22 02:32 Last Admin: 10/18/22 19:26 Dose: 4 mg Pantoprazole Sodium (Pantoprazole 40 Mg Tab) 40 mg PO QAM [facility] Stop: 11/18/22 08:59 Last Admin: 10/22/22 08:20 Dose: 40 mg Psyllium Hydrophilic Mucilloid (Psyllium Or Guar Gum Fiber Powder Packet) 1 pkt PO QAM [facility] Stop: 11/19/22 18:59 Last Admin: 10/22/22 08:20 Dose: 1 pkt Rifaximin (Rifaximin 550 Mg Tablet) 550 mg PO BID [facility] Stop: 11/17/22 08:59 Last Admin: 10/22/22 08:20 Dose: 550 mg Tamsulosin HCl (Tamsulosin Hcl 0.4 Mg Cap) 0.4 mg PO DAILY [facility] Stop: 11/17/22 08:59 Last Admin: 10/22/22 08:20 Dose: 0.4 mg Vitamin D (Cholecalciferol 1,000 Units 25 Mcg Tab) 1,000 units PO QAM [facility] Stop: 11/19/22 08:59 Last Admin: 10/22/22 08:20 Dose: 1,000 units Warfarin Sodium (Warfarin Sod 3 Mg Tab) 3 mg PO DAILY@1600 [facility] Stop: 11/18/22 15:59 Last Admin: 10/21/22 15:15 Dose: 3 mg
[2022-10-22] MEDS: cefTRIAXone SODIUM 2,000 MG in DEXTROSE 5% 50 ML IV SCH (12:21)
[2022-10-22] MEDS ORDERED: MICONAZOLE NITRATE POWDER 85 GM EXT PRN (14:17)
[2022-10-22] MEDS: WARFARIN SOD 3 MG TAB PO SCH (15:04)
[2022-10-22 16:17] LABS: Calcium 7.7 mg/dl (8.6-10.3); Est GFR (African American) 45.1 ml/min; Est GFR (Non-African American) 38.9 ml/min; Potassium 4.2 mmol/L (3.5-5.1)
[2022-10-22] MEDS ORDERED: PLASMA-LYTE A 1,000 ML IV SCH (18:15)
--- NOTE | 2022-10-22 18:16 | Hospitalist Progress Note ---
Date of Service October 22, 2022 Assessment & Plan (1) Septicemia: Plan: 82yo Male with PMH cirrhosis s/p tips procedure, afib on digoxin and warfarin, chronic ITP, diverticulitis with colostomy, hx. GI bleed, s/p splenectomy, ischemic cardiomyopathy, HLD, GERD, JADE, thoracic aortic aneurysm here for nausea vomiting ongoing 2 days. Patient with viral gastroenteritis prior to symptom onset Was admitted with leukocytosis of 19, and lactate of 5.6 in the setting of liver cirrhosis with tachycardia/fever Was treated [employer] as an outpatient with Levaquin for 5 days and then follow-up fluconazole for 5 days for UTI Blood cultures 1/4 positive for Streptococcus species. - ID consulted, sent for speciation and sensitivities. Patientpatient was narrowed to Rocephin. As only 1/4 bottles were positive, endocarditis/ICD infection thought to be unlikely. May transition to cefadroxil 500 mg p.o. every 12 hours (maintain higher dose despite renal insufficiency due to bacteremia) to complete a 14-day course which will be complete on 11/01. Blood culture should be arranged 1 week after completing antibiotics to ensure clearance, and should follow-up with RAFFI if recurrent bacteremia. Appreciate recommendations (2) Acute kidney injury: Plan: Dehydration with INOCENCIA nausea/vomiting, with associated hyperkalemia and anion gap metabolic acidosis, hyponatremia -Suspect worsened by increased ostomy output Creatinine downtrending 10/22; 1.62 from 1.90 Baseline creatinine is around 1.5, BUN/creatinine ratio remains elevated. 1 L supplemental fluid at 150 cc an hour ordered, p.o. encouraged Due to continued hyponatremia urine studies were ordered. Urine sodium is less than 10, patient is conserving sodium. Suspect total solute depletion due to poor intake and ostomy output. IV fluids ordered as noted which should cause improvement as SIADH is not apparent, salt tablet x1 given. Cautious use and will not schedule regularly in the setting of EF 40-45% and LV hypokinesis Continues to have a mild metabolic acidosis in the setting of INOCENCIA, trend BMP daily (3) Acute hyperkalemia: Plan: As above Resolved (4) Nausea & vomiting: Plan: As above, with possible gastroenteritis which is now resolved Tolerating regular diet Had some possible blood in stool on the day of admission which is now resolved after reversal of INR INR was 7 on arrival and was given vitamin K 10 mg x 1. INR down to 1.4, now within goal range at 2.2 as of / A/P: No hydronephrosis or nephrolithiasis. Hepatic cirrhosis. Indeterminate low-attenuation lesion RIGHT hepatic lobe, measures approximately 5.4 x 3.6 cm, limited in evaluation without contrast. This is new when compared to April 09, 2019. Consider hepatic MRI for further evaluation. TIPS stent. Cholelithiasis. Splenectomy.. Colectomy. RIGHT lower quadrant ileostomy. Diverticulosis, without acute diverticulitis. No small bowel obstruction. No free air. -GI consultation appreciated-plan for outpatient follow-up and endoscopy, no inpatient endoscopy anticipated at this time (5) Cirrhosis: Plan: Long history of such, s/p TIPS procedure for frequent bleeding from colostomy site No acute decompensation With only mildly elevated total bilirubin and AST, chronically low platelets in the 50s to 80s With known liver mass and is followed [facility] will need [facility] is aware of his latest measurement from the CT abdomen/pelvis performed here Continue lactulose, rifaximin Clinically volume depleted at bedside, fluids as noted INR supratherapeutic 3.5 on 10/22, warfarin dose decreased to 2.5 mg (6) Atrial fibrillation: Plan: Afib on warfarin, digoxin-rates remain uncontrolled likely due to ongoing hypovolemia -digoxin level 0.5 ng/ml, continue digoxin INR therapeutic 10/21 -continue carvedilol at current dose of 12.5 Mg p.o. twice daily-cannot increase rate control due to soft blood pressures Monitor on telemetry (7) Post-splenectomy: Plan: Noted (8) Dyslipidemia: Plan: Continue atorvastatin (9) Obstructive sleep apnea: Plan: Continue CPAP at bedtime (10) BPH (benign prostatic hyperplasia): Plan: No acute issues Continue tamsulosin and finasteride (11) Ischemic cardiomyopathy: Plan: Echocardiogram here stable at EF 40-45% Continue carvedilol, holding home lisinopril Not volume overloaded (12) Coronary artery disease: Plan: With a history of PCI of the LAD in 2006 Continue warfarin, carvedilol, atorvastatin (13) Diabetes mellitus, type 2: Plan: Noted in history, he is not on medications for this at home Blood sugars fairly well controlled here on Lantus-continue for now and continue NovoLog supplemental insulin and sliding scale with Accu-Cheks before meals and at bedtime Obtained A1C (14) Liver mass: Plan: As noted above, followed by outpatient (15) Hypothyroidism: Plan: TSH normal at 1.6 Continue home levothyroxine 100 mcg daily Plan Disposition: Held for INOCENCIA and volume depletion with hyponatremia. Urine studies consistent with this, no evidence of SIADH. Improving, additional fluids given 10/22 and ostomy output decreasing. Cautious reassessment w/ fluids 2/2 HFrEF. Admission and Anticipated Discharge Date Admission Date: October 18, 2022 Subjective Seen at the bedside this morning. Patient has continued with increased ostomy output from normal, but is starting to slow down and become more formed. Clinically he feels very tired. He notes his ostomy site has become very soft and raw, and is hard to get the bag to stick appropriately to the skin. He has not had fever, chills, sweats. Overall just feels very tired. Discussed with nursing since the bedside variety of interventions trialed to help drain his ostomy while maintaining skin integrity. Crusting technique has been attempted without good results; subsequently barrier dressing added, appears to be improving and doing Review of Systems Review of Systems: All systems reviewed & are unremarkable except as noted in Subjective Physical Exam Physical Exam: General: A&Ox3. NAD. Cooperative. HEENT: Atraumatic, normocephalic. Mucous membranes tacky Pulm: Symmetrical chest rise. No increased work of breathing. No respiratory distress. Cardiac: RRR, -mrg. Radial pulses intact and symmetrical. Abdominal: Ostomy site mildly pink and raw, but no overt erythema/cellulitis. Ostomy output is more formed and brown than prior Extremities: Warm, dry, no edema Results & Data Results & Data Vital Signs (Past 12 Hours) Vital Signs Temp Pulse Resp BP BP Pulse Ox O2 Del Method 10/22/22 15:40 36.3 C L 84 18 107/66 96 Room Air 10/22/22 11:12 36.2 C L 83 18 113/68 92 Room Air 10/22/22 09:00 Room Air 10/22/22 07:15 36.2 C L 95 H 16 125/69 96 Nasal Cannula O2 Flow Rate 10/22/22 15:40 10/22/22 11:12 10/22/22 09:00 10/22/22 07:15 2.0 PG Care Time/CCT Total # of Minutes Spent Total Time Spent with Patient: Total time spent is greater than 50% in coordination of care (as documented) at patient's floor/unit and/or counseling patient: Coding Level of Care Code 78811 SUB INP/OBS CARE 3/50MIN Diagnoses Septicemia A41.9 Acute kidney injury N17.9 Acute hyperkalemia E87.5 Nausea & vomiting R11.2 Cirrhosis K74.60 Atrial fibrillation I48.91 Post-splenectomy Z90.81 Dyslipidemia E78.5 Obstructive sleep apnea G47.33 BPH (benign prostatic hyperplasia) N40.0 Ischemic cardiomyopathy I25.5 Coronary artery disease I25.10 Diabetes mellitus, type 2 E11.9 Liver mass R16.0 Hypothyroidism E03.9
[2022-10-22] MEDS: ATORVASTATIN 20 MG TAB PO SCH (20:53)
[2022-10-22] MEDS: DIGOXIN 0.125 MG TAB PO SCH (20:54)
[2022-10-23] MEDS: LEVOTHYROXINE SODIUM 100 MCG TABLET PO SCH (06:01)
[2022-10-23 06:33] LABS: Basophils # (auto) 0.07 K/uL (0-0.2); Basophils % (auto) 0.5 %; Eosinophils % (auto) 4.6 %; Hematocrit (blood only) 43.2 % (42.0-52.0); Hemoglobin 15.5 g/dl (14.0-18.0); Immature Granulocytes # (auto) 0.09 K/uL (0.01-0.20); Immature Granulocytes % (auto) 0.7 %; Lymphocytes % (auto) 23.1 %; Mean Corpuscular Hemoglobin 33.9 pg (25.0-34.0); Mean Corpuscular Hgb Conc 35.9 g/dL (32.0-36.0); Mean Corpuscular Volume 94.5 fL (80.0-100.0); Mean Platelet Volume 12.8 fL (9.4-12.4); Monocytes # (auto) 1.72 K/uL (0.11-0.59); Monocytes % (auto) 13.2 %; Neutrophils # (auto) 7.52 K/uL (1.40-6.50); Neutrophils % (auto) 57.9 %; Platelet Count 64 K/uL (130-400); RDW Coefficient of Variation 15.1 % (11.5-14.5); RDW Standard Deviation 52.5 fL (36.4-46.3); Red Blood Count 4.57 M/uL (4.70-6.10)
[2022-10-23 06:43] LABS: BUN Creatinine Ratio 33.3 (10-20); Calcium 7.9 mg/dl (8.6-10.3); Creatinine Clr Calc Pharmacy 39.9 ml/min; Est GFR (African American) 54.8 ml/min; Est GFR (Non-African American) 47.3 ml/min; Potassium 4.3 mmol/L (3.5-5.1)
[2022-10-23 07:13] LABS: INR 4.5 (0.9-1.1); Prothrombin Time 44.5 Seconds (9.0-12.0)
[2022-10-23] MEDS: BRIMONIDINE TARTRATE 0.2% 5ML OP SCH ×2 (07:53→20:03)
[2022-10-23] MEDS: carvediloL 12.5 MG TAB PO SCH ×2 (07:54→20:03)
[2022-10-23] MEDS: FINASTERIDE 5 MG TAB PO SCH (07:55)
[2022-10-23] MEDS: rifAXIMin 550 MG TABLET PO SCH ×2 (07:55→20:03)
[2022-10-23] MEDS: PSYLLIUM or GUAR GUM FIBER POWDER PACKET PO SCH (07:55)
[2022-10-23] MEDS: CHOLECALCIFEROL 1,000 UNITS 25 MCG TAB PO SCH (07:56)
[2022-10-23] MEDS: PANTOprazole 40 MG TAB PO SCH (07:56)
[2022-10-23] MEDS: ASCORBIC ACID 500 MG TAB PO SCH (07:56)
[2022-10-23] MEDS: TAMSULOSIN HCL 0.4 MG CAP PO SCH (07:57)
[2022-10-23] MEDS: LACTULOSE SYRUP 10 GM/15 ML BTL 960 ML PO SCH (07:57)
[2022-10-23] MEDS: INSULIN ASPART PER UNIT CHARGE SC SCH ×4 (08:15→20:04)
[2022-10-23] MEDS: LANTUS PER UNIT CHARGE SQ SCH ×2 (08:16→20:04)
[2022-10-23] MEDS: cefTRIAXone SODIUM 2,000 MG in DEXTROSE 5% 50 ML IV SCH (14:08)
[2022-10-23] MEDS: DIGOXIN 0.125 MG TAB PO SCH (20:02)
[2022-10-23] MEDS: ATORVASTATIN 20 MG TAB PO SCH (20:03)
--- NOTE | 2022-10-23 22:08 | Hospitalist Progress Note ---
Date of Service October 23, 2022 Assessment & Plan (1) Septicemia: Plan: 82yo Male with PMH cirrhosis s/p tips procedure, afib on digoxin and warfarin, chronic ITP, diverticulitis with colostomy, hx. GI bleed, s/p splenectomy, ischemic cardiomyopathy, HLD, GERD, JADE, thoracic aortic aneurysm here for nausea vomiting ongoing 2 days. Patient with viral gastroenteritis prior to symptom onset Was admitted with leukocytosis of 19, and lactate of 5.6 in the setting of liver cirrhosis with tachycardia/fever Was treated [employer] as an outpatient with Levaquin for 5 days and then follow-up fluconazole for 5 days for UTI Blood cultures 1/4 positive for Streptococcus species. - ID consulted, sent for speciation and sensitivities. Patientpatient was narrowed to Rocephin. As only 1/4 bottles were positive, endocarditis/ICD infection thought to be unlikely. May transition to cefadroxil 500 mg p.o. every 12 hours (maintain higher dose despite renal insufficiency due to bacteremia) to complete a 14-day course which will be complete on 11/01. Blood culture should be arranged 1 week after completing antibiotics to ensure clearance, and should follow-up with RAFFI if recurrent bacteremia. Appreciate recommendations. will check for c diff and monitor. if negative will consider lactobacillus. (2) Acute kidney injury: Plan: Dehydration with INOCENCIA nausea/vomiting, with associated hyperkalemia and anion gap metabolic acidosis, hyponatremia -Suspect worsened by increased ostomy output Creatinine downtrending 10/22; 1.62 from 1.90 Baseline creatinine is around 1.5, BUN/creatinine ratio remains elevated. 1 L supplemental fluid at 150 cc an hour ordered, p.o. encouraged Due to continued hyponatremia urine studies were ordered. Urine sodium is less than 10, patient is conserving sodium. Suspect total solute depletion due to poor intake and ostomy output. IV fluids ordered as noted which should cause improvement as SIADH is not apparent, salt tablet x1 given. Cautious use and will not schedule regularly in the setting of EF 40-45% and LV hypokinesis Continues to have a mild metabolic acidosis in the setting of INOCENCIA, trend BMP daily (3) Acute hyperkalemia: Plan: As above Resolved (4) Nausea & vomiting: Plan: As above, with possible gastroenteritis which is now resolved Tolerating regular diet Had some possible blood in stool on the day of admission which is now resolved after reversal of INR INR was 7 on arrival and was given vitamin K 10 mg x 1. INR down to 1.4, now within goal range at 2.2 as of / CT A/P: No hydronephrosis or nephrolithiasis. Hepatic cirrhosis. Indeterminate low-attenuation lesion RIGHT hepatic lobe, measures approximately 5.4 x 3.6 cm, limited in evaluation without contrast. This is new when compared to April 09, 2019. Consider hepatic MRI for further evaluation. TIPS stent. Cholelithiasis. Splenectomy.. Colectomy. RIGHT lower quadrant ileostomy. Diverticulosis, without acute diverticulitis. No small bowel obstruction. No free air. -GI consultation appreciated-plan for outpatient follow-up and endoscopy, no inpatient endoscopy anticipated at this time (5) Cirrhosis: Plan: Long history of such, s/p TIPS procedure for frequent bleeding from colostomy site No acute decompensation With only mildly elevated total bilirubin and AST, chronically low platelets in the 50s to 80s With known liver mass and is followed [facility] will need to [facility] is [facility] of his latest measurement from the CT abdomen/pelvis performed here Continue lactulose, rifaximin Clinically volume depleted at bedside, fluids as noted INR supratherapeutic 3.5 on 10/22, warfarin dose decreased to 2.5 mg (6) Atrial fibrillation: Plan: Afib on warfarin, digoxin-rates remain uncontrolled likely due to ongoing hypovolemia -digoxin level 0.5 ng/ml, continue digoxin INR therapeutic 10/21 -continue carvedilol at current dose of 12.5 Mg p.o. twice daily-cannot increase rate control due to soft blood pressures Monitor on telemetry (7) Post-splenectomy: Plan: Noted (8) Dyslipidemia: Plan: Continue atorvastatin (9) Obstructive sleep apnea: Plan: Continue CPAP at bedtime (10) BPH (benign prostatic hyperplasia): Plan: No acute issues Continue tamsulosin and finasteride (11) Ischemic cardiomyopathy: Plan: Echocardiogram here stable at EF 40-45% Continue carvedilol, holding home lisinopril Not volume overloaded (12) Coronary artery disease: Plan: With a history of PCI of the LAD in 2006 Continue warfarin, carvedilol, atorvastatin (13) Diabetes mellitus, type 2: Plan: Noted in history, he is not on medications for this at home Blood sugars fairly well controlled here on Lantus-continue for now and continue NovoLog supplemental insulin and sliding scale with Accu-Cheks before meals and at bedtime Obtained A1C (14) Liver mass: Plan: As noted above, followed by outpatient (15) Hypothyroidism: Plan: TSH normal at 1.6 Continue home levothyroxine 100 mcg daily Plan Disposition: Held for INOCENCIA and volume depletion with hyponatremia. Urine studies consistent with this, no evidence of SIADH. Improving, additional fluids given 10/22 and ostomy output decreasing. Cautious reassessment w/ fluids 2/2 HFrEF. Admission and Anticipated Discharge Date Admission Date: October 18, 2022 Subjective 82 yo female reports no new symptoms. Review of Systems Review of Systems: All systems reviewed & are unremarkable except as noted in HPI & below Physical Exam Constitutional: WD/WN, vitals as above Respiratory: normal respiratory effort, lungs clear to auscultation Cardiovascular: RRR, no murmur, no edema Gastrointestinal (Abdomen): normal bowel sounds, soft, nontender, no hepatosplenomegaly Neurologic: PERRL, EOMI, accommodation nl, no face palsy, no dysarthria Psychiatric: A+Ox3, euthymic affect Results & Data Results & Data Vital Signs (Past 12 Hours) Vital Signs Temp Pulse Pulse Resp BP BP Pulse Ox 10/23/22 20:02 88 10/23/22 19:36 36.4 C L 88 18 130/75 94 10/23/22 15:43 36.3 C L 69 16 117/73 95 10/23/22 11:43 36.5 C 73 16 121/79 95 O2 Del Method 10/23/22 20:02 10/23/22 19:36 Room Air 10/23/22 15:43 Room Air 10/23/22 11:43 Room Air PG Care Time/CCT Total # of Minutes Spent Total Time Spent with Patient: Total time spent is greater than 50% in coordination of care (as documented) at patient's floor/unit and/or counseling patient: Coding Level of Care Code 43680 SUB INP/OBS CARE 2/35MIN Diagnoses Septicemia A41.9 Acute kidney injury N17.9 Acute hyperkalemia E87.5 Nausea & vomiting R11.2 Cirrhosis K74.60 Atrial fibrillation I48.91 Post-splenectomy Z90.81 Dyslipidemia E78.5 Obstructive sleep apnea G47.33 BPH (benign prostatic hyperplasia) N40.0 Ischemic cardiomyopathy I25.5 Coronary artery disease I25.10 Diabetes mellitus, type 2 E11.9 Liver mass R16.0 Hypothyroidism E03.9
[2022-10-24 05:07] LABS: Basophils # (auto) 0.09 K/uL (0-0.2); Basophils % (auto) 0.7 %; Eosinophils # (auto) 0.88 K/uL (0-0.50); Eosinophils % (auto) 6.4 %; Hemoglobin 15.3 g/dl (14.0-18.0); Immature Granulocytes # (auto) 0.12 K/uL (0.01-0.20); Immature Granulocytes % (auto) 0.9 %; Lymphocytes # (auto) 3.74 K/uL (1.2-3.4); Lymphocytes % (auto) 27.1 %; Mean Corpuscular Hemoglobin 33.3 pg (25.0-34.0); Mean Corpuscular Hgb Conc 35.6 g/dL (32.0-36.0); Mean Corpuscular Volume 93.7 fL (80.0-100.0); Mean Platelet Volume 13.5 fL (9.4-12.4); Monocytes # (auto) 1.85 K/uL (0.11-0.59); Monocytes % (auto) 13.4 %; Neutrophils # (auto) 7.14 K/uL (1.40-6.50); Neutrophils % (auto) 51.5 %; Platelet Count 88 K/uL (130-400); RDW Coefficient of Variation 15.3 % (11.5-14.5); RDW Standard Deviation 52.8 fL (36.4-46.3); Red Blood Count 4.59 M/uL (4.70-6.10); White Blood Count 13.82 K/ul (4.8-10.8)
[2022-10-24 05:11] LABS: BUN Creatinine Ratio 26.8 (10-20); Calcium 8.5 mg/dl (8.6-10.3); Creatinine Clr Calc Pharmacy 43.4 ml/min; Est GFR (African American) 60.6 ml/min; Est GFR (Non-African American) 52.3 ml/min; Potassium 4.6 mmol/L (3.5-5.1)
[2022-10-24 05:39] LABS: INR 3.7 (0.9-1.1)
[2022-10-24] MEDS: LEVOTHYROXINE SODIUM 100 MCG TABLET PO SCH (06:03)
[2022-10-24] MEDS: LANTUS PER UNIT CHARGE SQ SCH ×2 (08:53→20:19)
[2022-10-24] MEDS: INSULIN ASPART PER UNIT CHARGE SC SCH ×4 (08:54→20:20)
[2022-10-24] MEDS: FINASTERIDE 5 MG TAB PO SCH (08:55)
[2022-10-24] MEDS: PANTOprazole 40 MG TAB PO SCH (08:55)
[2022-10-24] MEDS: carvediloL 12.5 MG TAB PO SCH ×2 (08:55→20:19)
[2022-10-24] MEDS: CHOLECALCIFEROL 1,000 UNITS 25 MCG TAB PO SCH (08:55)
[2022-10-24] MEDS: ASCORBIC ACID 500 MG TAB PO SCH (08:55)
[2022-10-24] MEDS: LACTULOSE SYRUP 10 GM/15 ML BTL 960 ML PO SCH (08:55)
[2022-10-24] MEDS: rifAXIMin 550 MG TABLET PO SCH ×2 (08:56→20:18)
[2022-10-24] MEDS: BRIMONIDINE TARTRATE 0.2% 5ML OP SCH ×2 (08:56→20:19)
[2022-10-24] MEDS: TAMSULOSIN HCL 0.4 MG CAP PO SCH (08:56)
[2022-10-24] MEDS: PSYLLIUM or GUAR GUM FIBER POWDER PACKET PO SCH (08:56)
[2022-10-24] MEDS: cefTRIAXone SODIUM 2,000 MG in DEXTROSE 5% 50 ML IV SCH (13:29)
[2022-10-24] MEDS ORDERED: cephALEXin 500 MG CAP PO STA (13:55)
[2022-10-24] MEDS: ADVANCED PROBIOTIC 1250 MG CAPSULE PO SCH (15:13)
[2022-10-24] MEDS ORDERED: WARFARIN SOD 2.5 MG TAB PO SCH (16:00)
[2022-10-24] MEDS: cephALEXin 500 MG CAP PO SCH ×2 (17:43→20:19)
[2022-10-24] MEDS: ATORVASTATIN 20 MG TAB PO SCH (20:18)
[2022-10-24] MEDS: DIGOXIN 0.125 MG TAB PO SCH (20:19)
--- NOTE | 2022-10-24 22:43 | Hospitalist Progress Note ---
Date of Service October 24, 2022 Assessment & Plan (1) Septicemia: Plan: 82yo Male with PMH cirrhosis s/p tips procedure, afib on digoxin and warfarin, chronic ITP, diverticulitis with colostomy, hx. GI bleed, s/p splenectomy, ischemic cardiomyopathy, HLD, GERD, JADE, thoracic aortic aneurysm here for nausea vomiting ongoing 2 days. Patient with viral gastroenteritis prior to symptom onset Was admitted with leukocytosis of 19, and lactate of 5.6 in the setting of liver cirrhosis with tachycardia/fever Was treated [facility] as an outpatient with Levaquin for 5 days and then follow-up fluconazole for 5 days for UTI Blood cultures 1/4 positive for Streptococcus species. - ID consulted, sent for speciation and sensitivities. Patientpatient was narrowed to Rocephin. As only 1/4 bottles were positive, endocarditis/ICD infection thought to be unlikely. May transition to cefadroxil 500 mg p.o. every 12 hours (maintain higher dose despite renal insufficiency due to bacteremia) to complete a 14-day course which will be complete on 11/01. Blood culture should be arranged 1 week after completing antibiotics to ensure clearance, and should follow-up with [facility] if recurrent bacteremia. Appreciate recommendations. c diff is negative. 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 Patient will be off ceftriaxone. will monitor stools now that patient is off broad spectrum antibiotics (2) Acute kidney injury: Plan: Dehydration with INOCENCIA nausea/vomiting, with associated hyperkalemia and anion gap metabolic acidosis, hyponatremia -Suspect worsened by increased ostomy output Creatinine downtrending 10/22; 1.62 from 1.90 Baseline creatinine is around 1.5, BUN/creatinine ratio remains elevated. 1 L supplemental fluid at 150 cc an hour ordered, p.o. encouraged Due to continued hyponatremia urine studies were ordered. Urine sodium is less than 10, patient is conserving sodium. Suspect total solute depletion due to poor intake and ostomy output. IV fluids ordered as noted which should cause improvement as SIADH is not apparent, salt tablet x1 given. Cautious use and will not schedule regularly in the setting of EF 40-45% and LV hypokinesis Continues to have a mild metabolic acidosis in the setting of INOCENCIA, trend BMP daily (3) Acute hyperkalemia: Plan: As above Resolved (4) Nausea & vomiting: Plan: As above, with possible gastroenteritis which is now resolved Tolerating regular diet Had some possible blood in stool on the day of admission which is now resolved after reversal of INR INR was 7 on arrival and was given vitamin K 10 mg x 1. INR down to 1.4, now within goal range at 2.2 as of / A/P: No hydronephrosis or nephrolithiasis. Hepatic cirrhosis. Indeterminate low-attenuation lesion RIGHT hepatic lobe, measures approximately 5.4 x 3.6 cm, limited in evaluation without contrast. This is new when compared to April 09, 2019. Consider hepatic MRI for further evaluation. TIPS stent. Cholelithiasis. Splenectomy.. Colectomy. RIGHT lower quadrant ileostomy. Diverticulosis, without acute diverticulitis. No small bowel obstruction. No free air. -GI consultation appreciated-plan for outpatient follow-up and endoscopy, no inpatient endoscopy anticipated at this time (5) Cirrhosis: Plan: Long history of such, s/p TIPS procedure for frequent bleeding from colostomy site No acute decompensation With only mildly elevated total bilirubin and AST, chronically low platelets in the 50s to 80s With known liver mass and [facility] his latest measurement from the CT abdomen/pelvis performed here Continue lactulose, rifaximin Clinically volume depleted at bedside, fluids as noted INR supratherapeutic 3.5 on 10/22, warfarin dose decreased to 2.5 mg Inr downtredning. (6) Atrial fibrillation: Plan: Afib on warfarin, digoxin-rates remain uncontrolled likely due to ongoing hypovolemia -digoxin level 0.5 ng/ml, continue digoxin INR therapeutic 10/21 -continue carvedilol at current dose of 12.5 Mg p.o. twice daily-cannot increase rate control due to soft blood pressures Monitor on telemetry (7) Post-splenectomy: Plan: Noted (8) Dyslipidemia: Plan: Continue atorvastatin (9) Obstructive sleep apnea: Plan: Continue CPAP at bedtime (10) BPH (benign prostatic hyperplasia): Plan: No acute issues Continue tamsulosin and finasteride (11) Ischemic cardiomyopathy: Plan: Echocardiogram here stable at EF 40-45% Continue carvedilol, holding home lisinopril Not volume overloaded (12) Coronary artery disease: Plan: With a history of PCI of the LAD in 2006 Continue warfarin, carvedilol, atorvastatin (13) Diabetes mellitus, type 2: Plan: Noted in history, he is not on medications for this at home Blood sugars fairly well controlled here on Lantus-continue for now and continue NovoLog supplemental insulin and sliding scale with Accu-Cheks before meals and at bedtime Obtained A1C (14) Liver mass: Plan: As noted above, followed by outpatient (15) Hypothyroidism: Plan: TSH normal at 1.6 Continue home levothyroxine 100 mcg daily Plan Disposition: Held for INOCENCIA and volume depletion with hyponatremia. Urine studies consistent with this, no evidence of SIADH. Improving, additional fluids given 10/22 and ostomy output decreasing. Cautious reassessment w/ fluids 2/2 HFrEF. Admission and Anticipated Discharge Date Admission Date: October 18, 2022 Subjective Patient reports no new symptoms. Stools remain soft. Review of Systems Review of Systems: All systems reviewed & are unremarkable except as noted in HPI & below Physical Exam Constitutional: WD/WN, vitals as above Respiratory: normal respiratory effort, lungs clear to auscultation Cardiovascular: RRR, no murmur, no edema Gastrointestinal (Abdomen): normal bowel sounds, soft, nontender, no hepatosplenomegaly Neurologic: PERRL, EOMI, accommodation nl, no face palsy, no dysarthria Psychiatric: A+Ox3, euthymic affect Results & Data Results & Data Vital Signs (Past 12 Hours) Vital Signs Temp Pulse Pulse Resp BP Pulse Ox O2 Del Method 10/24/22 20:19 77 10/24/22 19:50 36.4 C L 77 18 121/72 96 Room Air 10/24/22 15:51 36.5 C 76 18 110/71 95 Room Air 10/24/22 11:22 36.7 C 72 17 109/69 95 Room Air PG Care Time/CCT Total # of Minutes Spent Total Time Spent with Patient: Total time spent is greater than 50% in coordination of care (as documented) at patient's floor/unit and/or counseling patient: Coding Level of Care Code 43914 SUB INP/OBS CARE 3/50MIN Diagnoses Septicemia A41.9 Acute kidney injury N17.9 Acute hyperkalemia E87.5 Nausea & vomiting R11.2 Cirrhosis K74.60 Atrial fibrillation I48.91 Post-splenectomy Z90.81 Dyslipidemia E78.5 Obstructive sleep apnea G47.33 BPH (benign prostatic hyperplasia) N40.0 Ischemic cardiomyopathy I25.5 Coronary artery disease I25.10 Diabetes mellitus, type 2 E11.9 Liver mass R16.0 Hypothyroidism E03.9 Time Spent (min) 50
[2022-10-25 05:18] LABS: INR 2.8 (0.9-1.1); Prothrombin Time 28.7 Seconds (9.0-12.0)
[2022-10-25] MEDS: LEVOTHYROXINE SODIUM 100 MCG TABLET PO SCH (05:45)
[2022-10-25] MEDS: TAMSULOSIN HCL 0.4 MG CAP PO SCH (08:41)
[2022-10-25] MEDS: carvediloL 12.5 MG TAB PO SCH (08:41)
[2022-10-25] MEDS: PANTOprazole 40 MG TAB PO SCH (08:41)
[2022-10-25] MEDS: ADVANCED PROBIOTIC 1250 MG CAPSULE PO SCH (08:41)
[2022-10-25] MEDS: BRIMONIDINE TARTRATE 0.2% 5ML OP SCH (08:41)
[2022-10-25] MEDS: rifAXIMin 550 MG TABLET PO SCH (08:42)
[2022-10-25] MEDS: LACTULOSE SYRUP 10 GM/15 ML BTL 960 ML PO SCH (08:42)
[2022-10-25] MEDS: CHOLECALCIFEROL 1,000 UNITS 25 MCG TAB PO SCH (08:42)
[2022-10-25] MEDS: PSYLLIUM or GUAR GUM FIBER POWDER PACKET PO SCH (08:42)
[2022-10-25] MEDS: ASCORBIC ACID 500 MG TAB PO SCH (08:42)
[2022-10-25] MEDS: FINASTERIDE 5 MG TAB PO SCH (08:42)
[2022-10-25] MEDS: cephALEXin 500 MG CAP PO SCH ×2 (08:43→13:03)
[2022-10-25] MEDS: LANTUS PER UNIT CHARGE SQ SCH (08:48)
[2022-10-25] MEDS: INSULIN ASPART PER UNIT CHARGE SC SCH ×2 (08:49→12:27)
--- NOTE | 2022-10-25 14:18 | Discharge Summary ---
Date of Service October 25, 2022 Admission HPI Per Admitting Provider 82yo Male with PMH cirrhosis s/p tips procedure, afib on digoxin and warfarin, chronic ITP, diverticulitis with colostomy, hx. GI bleed, s/p splenectomy, ischemic cardiomyopathy, HLD, GERD, JADE, thoracic aortic aneurysm here for nausea vomitting ongoing 2 days. Patient states he regularly gets nausea at least once a week that resolves after 2 hours. 2 nights ago he developed nausea, however this time it was persistent and continued to get worse, he may have vomited his medications. Patient cannot recall any changes to his schedule recently, denies take out. States he was on a single antibiotic over the last 5 days with the last dose being yesterday. He describes occasional leg cramping. States his legs felt weaker yesterday, normally able to ambulate without assistance but needed to use a walker yesterday. Denies any fever SOB aspiration chest pain abd pain or pain with urination. At baseline he has difficulty initiating urine flow. When asked about his colostomy drainage, he states it has been normal, however he also states it is more reddish colored and watery, usually the color of oatmeal. Patient states his helps him organize his medications. Principal Diagnosis septicemia Discharge Exam Constitutional WD/WN, vitals as above Respiratory normal respiratory effort, lungs clear to auscultation Cardiovascular RRR, no murmur, no edema Gastrointestinal (Abdomen) normal bowel sounds, soft, nontender, no hepatosplenomegaly Neurologic PERRL, EOMI, accommodation nl, no face palsy, no dysarthria Psychiatric A+Ox3, euthymic affect Discharge Data Allergies Allergy/AdvReac Type Severity Reaction Status Date / Time zolpidem [From Ambien] AdvReac Severe SLEEP Verified 10/17/22 22:15 WALKING, CONFUSION, DISORIENTATION Consultations 10/18/22 00:32 ED Decision to Admit Stat 10/18/22 02:33 Consult Gastroenterology Routine 10/19/22 12:36 Consult Infectious Diseases Routine Ordered Studies 10/17/22 22:12 CT abd pelvis wo con Stat Hospital Course (1) Septicemia: 82yo Male with PMH cirrhosis s/p tips procedure, afib on digoxin and warfarin, chronic ITP, diverticulitis with colostomy, hx. GI bleed, s/p splenectomy, ischemic cardiomyopathy, HLD, GERD, JADE, thoracic aortic aneurysm here for nausea vomiting ongoing 2 days. Patient with viral gastroenteritis prior to symptom onset Was admitted with leukocytosis of 19, and lactate of 5.6 in the setting of liver cirrhosis with tachycardia/fever Was treated [employer] as an outpatient with Levaquin for 5 days and then follow-up fluconazole for 5 days for UTI Blood cultures 1/4 positive for Streptococcus species. - ID consulted, sent for speciation and sensitivities. Patientpatient was narrowed to Rocephin. As only 1/4 bottles were positive, endocarditis/ICD infection thought to be unlikely. May transition to cefadroxil 500 mg p.o. every 12 hours (maintain higher dose despite renal insufficiency due to bacteremia) to complete a 14-day course which will be complete on 11/01. Blood culture should be arranged 1 week after completing antibiotics to ensure clearance, and should follow-up with [facility] if recurrent bacteremia. Appreciate recommendations. c diff is negative. 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 Patient will be off ceftriaxone. will monitor stools now that patient is off broad spectrum antibiotics Improved. will discharge on cefadroxil (2) Acute kidney injury: Dehydration with INOCENCIA nausea/vomiting, with associated hyperkalemia and anion gap metabolic acidosis, hyponatremia -Suspect worsened by increased ostomy output resolved with fluid replacement] (3) Acute hyperkalemia: As above Resolved (4) Nausea & vomiting: As above, with possible gastroenteritis which is now resolved Tolerating regular diet Had some possible blood in stool on the day of admission which is now resolved after reversal of INR INR was 7 on arrival and was given vitamin K 10 mg x 1. INR down to 1.4, now within goal range at 2.2 as of / CT A/P: No hydronephrosis or nephrolithiasis. Hepatic cirrhosis. Indeterminate low-attenuation lesion RIGHT hepatic lobe, measures approximately 5.4 x 3.6 cm, limited in evaluation without contrast. This is new when compared to April 09, 2019. Consider hepatic MRI for further evaluation. TIPS stent. Cholelithiasis. Splenectomy.. Colectomy. RIGHT lower quadrant ileostomy. Diverticulosis, without acute diverticulitis. No small bowel obstruction. No free air. -GI consultation appreciated-plan for outpatient follow-up and endoscopy, no inpatient endoscopy anticipated at this time (5) Cirrhosis: Long history of such, s/p TIPS procedure for frequent bleeding from colostomy site No acute decompensation With only mildly elevated total bilirubin and AST, chronically low platelets in the 50s to 80s With known liver mass and is [facility] will need [facility] his latest measurement from the CT abdomen/pelvis performed here Continue lactulose, rifaximin Clinically volume depleted at bedside, fluids as noted INR supratherapeutic will cut back on warfarin to 2 mg while patient is on antibiotics. (6) Atrial fibrillation: Afib on warfarin, digoxin-rates remain uncontrolled likely due to ongoing hypovolemia -digoxin level 0.5 ng/ml, continue digoxin -continue carvedilol at current dose of 12.5 Mg p.o. twice daily (7) Post-splenectomy: Noted (8) Dyslipidemia: Continue atorvastatin (9) Obstructive sleep apnea: Continue CPAP at bedtime (10) BPH (benign prostatic hyperplasia): No acute issues Continue tamsulosin and finasteride (11) Ischemic cardiomyopathy: Echocardiogram here stable at EF 40-45% Continue carvedilol, holding home lisinopril Not volume overloaded (12) Coronary artery disease: With a history of PCI of the LAD in 2006 Continue warfarin, carvedilol, atorvastatin (13) Diabetes mellitus, type 2: Noted in history, he is not on medications for this at home Blood sugars fairly well controlled here on Lantus-continue for now and continue NovoLog supplemental insulin and sliding scale with Accu-Cheks before meals and at bedtime Obtained A1C (14) Liver mass: As noted above, followed by outpatient (15) Hypothyroidism: TSH normal at 1.6 Continue home levothyroxine 100 mcg daily Total Time Total Time Spent Total Time Spent (In Minutes): 32 Discharge Plan Discharge Items Patient Disposition: Home - Self-Care Reason For Visit: VOMITING Discharge Diagnosis: vomiting Condition on Discharge: Fair Activity: Resume your previous activity Non-emergency contact: Primary Care Provider Call non-emergency contact if: you have any medication questions Follow-up/Referrals: Melissa Garcia PA-C [Primary Care Provider] - Diet: Regular Addtl Attending Provider Instructions: complete antibiotics. Recommend rechecking blood cultures one week after antibiotics have been completed. Recommend followup with PCP in 1-2 weeks. Cut back on warfarin while you are on antibiotics. Please recheck INR on Wednesday. Pending Studies at Discharge: No Stand-Alone Forms: [facility], Smoking Cessation Medications and DC Order Prescriptions: New cefadroxil 500 mg capsule 500 mg PO BID Qty: 15 0RF Rx Instructions: last full day 11/01 Continued lisinopril 2.5 mg tablet 2.5 mg PO QAM Qty: 90 3RF carvedilol 25 mg tablet 12.5 mg PO BID Qty: 90 3RF digoxin 125 mcg (0.125 mg) tablet 125 mcg PO PM Qty: 90 3RF Xifaxan 550 mg tablet 550 mg PO BID ondansetron 4 mg Tablet,Disintegrating 4 mg PO BID PRN (Reason: Nausea And Vomiting) lactulose 10 gram/15 mL Solution 10 g PO TID cholecalciferol (vitamin D3) [Vitamin D3] 1,000 unit Tablet,Chewable 1,000 unit PO QAM acetaminophen [Tylenol] 325 mg Tablet 650 mg PO Q4H PRN (Reason: PAIN/FEVER) atorvastatin 20 mg Tablet 20 mg PO HS levothyroxine 100 mcg Tablet 100 mcg PO DAILY ascorbic acid (vitamin C) [Vitamin C] 500 mg Tablet 500 mg PO DAILY tamsulosin [Flomax] 0.4 mg Capsule 0.4 mg PO DAILY mupirocin 2 % Ointment 1 applic TOPICAL BID nystatin 100,000 unit/gram Powder 1 applic TOPICAL BID PRN (Reason: RASH AT OSTOMY SITE) finasteride 5 mg tablet 5 mg PO DAILY Changed warfarin 2 mg tablet 2 mg PO QPM Qty: 30 0RF Rx Instructions: PER PT "TAKE 1 1/2 TABS EVERY EVENING". Discharge Orders: Discharge Order (Routine); Ordered 10/25/22 Ordered By: Willie Silva Admission Data Admit Date/Time: 10/18/22 01:16 Attending Provider: Willie Silva Admit Provider: Lavinia Houston Primary Care Provider: Melissa Garcia Other Providers: Jeff Ivy ; Boni aMrrero ; [facility] ; Sapna Ramirez Other Interventions: Discharge Summary Assessment (RN) Last Done: 10/25/22 14:26 Coding Level of Care Code 10517 INP/OBS DISCH >30 MIN Diagnoses Septicemia A41.9 Acute kidney injury N17.9 Acute hyperkalemia E87.5 Nausea & vomiting R11.2 Cirrhosis K74.60 Atrial fibrillation I48.91 Post-splenectomy Z90.81 Dyslipidemia E78.5 Obstructive sleep apnea G47.33 BPH (benign prostatic hyperplasia) N40.0 Ischemic cardiomyopathy I25.5 Coronary artery disease I25.10 Diabetes mellitus, type 2 E11.9 Liver mass R16.0 Hypothyroidism E03.9
== END 2022-10-25 15:03 | disposition home or self-care (01) | DRG 872 ==
LOC: ED 21:11 → SUATTDRO 10-18 01:16 → 4W 10-18 01:16